=== PATIENT | male | born 1980 | race Caucasian/White ===

== ENCOUNTER 2021-05-24 15:06 | Inpatient (IN) | payer MEDICARE, MEDICAID ==
[~2021-05-24] VITALS: Ht 182.9 cm; Wt 121.1 kg
[2021-05-24] MEDS ORDERED: inSUlin ASPART (NovoLOG) 1 UNIT/0.01 ML (CHARGE PER UNIT) SC PRN (15:30)
[2021-05-24] MEDS ORDERED: DOCUSATE SODIUM 100 MG (COLACE) CAP PO PRN (15:30)
[2021-05-24] MEDS ORDERED: diphenhydrAMINE 25 MG TAB (BENADRYL) PO PRN (15:30)
[2021-05-24] MEDS ORDERED: CALCIUM CARBONATE 500 MG (TUMS) TAB.CHEW PO PRN (15:30)
[2021-05-24] MEDS ORDERED: ONDANSETRON 4 MG/2 ML (SDV) Z0FRAN IVP PRN (15:30)
[2021-05-24] MEDS ORDERED: guaiFENesin/CODEINE (ROBITUSSIN AC) 10ML UDC PO PRN (15:30)
[2021-05-24] MEDS ORDERED: MELATONIN 3 MG TABLET PO PRN (15:30)
[2021-05-24] MEDS ORDERED: HYDROcodone/APAP 5 MG/325 MG (LORTAB) TAB PO PRN (15:30)
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
--- OUTSIDE RECORDS SUMMARY | 2021-05-24 17:57 | XMS REPORT | Encounter Summary ---
Author Author [facility] Organization [facility] Address Unknown Phone Unavailable Care Team Providers Care Tie Loader Name Role Phone Pawel Bray DO PCP Encounter Details Care Team Description Date Type Department Maxi Zarate MD [address] [place] [address] 04/19/2021 Documentation Oncology: Cancer Ce [facility] [place] [address] [facility] [place] [address] Social History Date Tobacco Use Types Packs/Day Years Used Quit: 01/09/2021 Former Smoker Cigarettes 0.5 10 Smokeless Tobacco: Never Used Comments Alcohol Use Standard Drinks/Week No 0 (1 standard drink = 0.6 o z pure alcohol) Sex Assigned at Date Recorded Not on file Date Recorded COVID-19 Exposure Response 04/13/2021 11:53 AM CDT In the last month, have you been in contact with No / Unsure someone who was confirmed or suspected to have Coronavirus / COVID-19? documented as of this encounter Progress Notes * Renee Matta, RN - 04/19/2021 5:55 PM SENIOR INSTRUCTOR Orders for monthly CBC and Iron panel faxed to care facility at [phone]. OR INSTRUCTOR documented in this encounter Plan of Treatment Not on filedocumented as of this encounter Visit Diagnoses Not on filedocumented in this encounter Additional Health Concerns Onset Date Resolved Time Infection Last Indicated 09/13/2009 MRSA 09/13/2009 Noted Time Assessment 04/13/2021 12:06 PM CDT A fall risk assessment has been complet ed for the patient documented as of this encounter Care Teams Start Date End Date Tie Loader Relationship Specialty 03/14/21 Pawel Bray DO PCP - General Geriatric [address] [place] [address] Medicine documented as of this encounter
--- OUTSIDE RECORDS SUMMARY | 2021-05-24 17:57 | XMS REPORT | Encounter Summary ---
Author Author [facility] Organization [facility] Address Unknown Phone Unavailable Care Team Providers Care Superintendent Building Name Role Phone Pawel Bray DO PCP Reason for Visit * Reason Onset Date Comments Lab Results W/medication 04/20/2021 Changes Encounter Details Care Team Description Date Type Department Maxi Zarate MD [address] [facility] [place] [address] Lab Results W/medication Changes 04/20/2021 Telephone Oncology: Cancer Ce [facility] [place] [address] [facility] [place] [address] Social History Date Tobacco Use Types Packs/Day [...] / COVID-19? documented as of this encounter Miscellaneous Notes * Telephone Encounter - Miranda Duran RN - 04/20/2021 8:59 AM BIN OPERATOR [place]kah nurse at care facility contacted and gave Dr Zarate's order to start Vit D 1000 u po daily. OPERATOR * Telephone Encounter - Miranda Duran RN - 04/20/2021 8:58 AM BIN OPERATOR ----- Message from Maxi Zarate MD sent at 04/18/2021 7:24 PM BIN OPERATOR ----- Have him take OTC vit D 1000 IU daily. OPERATOR documented in this encounter Plan of Treatment Not on filedocumented as of this encounter Visit Diagnoses Not on filedocumented in this encounter Historical Medications * This list may reflect changes made after this encounter. Start Date End Date Medication Sig Dispensed Refills ergocalciferol (vitamin Take 1,000 0 D2) (VITAMIN D PO) Units/day by mouth daily. added in this encounter Additional Health Concerns Onset Date Resolved Time Infection Last Indicated 09/13/2009 MRSA 09/13/2009 Noted Time Assessment 04/13/2021 12:06 PM CDT A fall risk assessment has been complet ed for the patient documented as of this encounter Care Teams Start Date End Date Superintendent Building Relationship Specialty 03/14/21 Pawel Bray DO PCP - General Geriatric [address] [place] [address] Medicine documented as of this encounter
--- OUTSIDE RECORDS SUMMARY | 2021-05-24 17:57 | XMS REPORT | Clinical Summary ---
Author Author [facility] Organization [facility] Address Unknown Phone Unavailable Care Team Providers Care Skin Specialist Name Role Phone Pawel Bray PCP Source Comments Some departments are not documenting in the electronic medical record. If you d o not see the information that you expected, contact Release of Information in [facility] [employer] department at [phone] for further assistan ce in locating additional records.[facility] Allergies Comments Active Allergy Reactions Severity Noted Date Cefazolin ANAPHYLAXIS 05/15/2007 Clindamycin ANAPHYLAXIS 02/03/2010 Ketorolac RASH Medium 03/14/2019 Latex RASH, UNKNOWN Medium 07/11/2011 Methadone ANAPHYLAXIS 02/03/2010 Oxycodone-Acetaminophen ITCHING Low 2011 Penicillins RASH 05/15/2007 Vancomycin ANAPHYLAXIS 05/15/2007 Sertraline MENTAL STATUS 05/15/2007 CHANGES Medications End Date Status Medication Sig Dispensed Refills Start Date Active MULTIVITS,TH W-FE,OTHER Take by 0 MIN (THEREMS-M PO) mouth. 1 tab daily Active aspirin 325 mg tablet Take 325 mg 0 by mouth. daily Active DULOXETINE HCL (CYMBALTA Take 60 mg by 0 PO) mouth Daily. Active oxybutynin XL (DITROPAN Take 5 mg by 0 XL) 5 mg tablet mouth Twice Daily. Active baclofen (LIORESAL) 20 mg Take 20 mg by 0 tablet mouth Three Times Daily. Active senna (SENNA) 8.6 mg 2 Tabs Twice 60 Tab 2 tablet Daily. 0 Active OXYCODONE Take 1-2 Tabs 0 HCL/ACETAMINOPHEN by mouth (PERCOCET PO) Every 4 Hours as needed. Take every 4 hours as needed for pain Active ALBUTEROL IN Inhale 2 0 Puffs by mouth As Needed. Active hydromorphone (DILAUDID) Take 1 Tab by 120 Tab 0 4 mg PO tablet mouth Every 3 0 Hours as needed for Pain. Active acetic acid 0.25 % 0 irrigation solution 1 Active ELIQUIS 5 mg tablet 0 1 Active cloZAPine (CLOZARIL) 100 0 mg tablet 1 Active cloZAPine (CLOZARIL) 25 0 mg tablet 1 Active SANTYL 250 unit/gram 0 topical ointment 1 Active furosemide (LASIX) 40 mg 0 tablet 1 Active gabapentin (NEURONTIN) 0 300 mg capsule 1 Active hydrOXYzine HCL (ATARAX) 0 25 mg tablet 1 Active ibuprofen (MOTRIN) 800 mg 0 tablet 1 Active lidocaine 1 % (10mg/mL) 0 soln 1 Active metFORMIN (GLUCOPHAGE) 0 500 mg tablet 1 Active metoprolol tartrate 25 mg 0 tablet 1 Active NYAMYC 100,000 unit/gram 0 topical powder [address] 0 (PROTONIX) 40 mg tablet 1 Active potassium chloride SR 0 (K-DUR) 20 mEq tablet 1 Active HYDROcodone/acetaminophen Take 1 tablet 0 (NORCO) 10/325 mg tablet by mouth every 6 hours as needed for Pain Active risperiDONE (RISPERDAL) 3 Take 3 mg by 0 mg tablet mouth twice daily. Active vortioxetine (TRINTELLIX) Take 5 mg by 0 5 mg tablet mouth daily. Active ZINC PO Take by 0 mouth. Active ergocalciferol (vitamin Take 1,000 0 D2) (VITAMIN D PO) Units/day by mouth daily. Active Problems Problem Noted Date Iron deficiency anemia 04/13/2021 Infected fluid collection without fistula 09/08/2009 Neurogenic bladder 05/23/2007 Encounters Care Team Description Date Type Specialty Maxi Zarate MD 05/20/2021 Hospital Oncology Encounter 05/20/2021 Travel Keily Grossman, [employer]ING [employer]NER 04/22/2021 Hospital Oncology Encounter Keily Grossman, [employer]ING [employer]NER Iron deficiency anemia, unspecified iron deficiency anemia type (Primary Dx); Vitamin D deficiency 04/22/2021 Office Visit Oncology 04/22/2021 Travel Maxi Zarate MD Lab Results W/medication Changes 04/20/2021 Telephone Oncology Maxi Zarate MD 04/19/2021 Documentation Oncology Maxi Zarate MD 04/13/2021 Hospital Lab Encounter Maxi Zarate MD Iron deficiency anemia, unspecified iron deficiency anemia type (Primary Dx); Vitamin D deficiency, unspecified ; Fatigue, unspecified type; Chronic fatigue, unspecified 04/13/2021 Office Visit Oncology 04/13/2021 Travel from Last 3 Months Medical History Medical History Date Comments Unspecified conditions influencing health status Hepatitis C GERD (gastroesophageal reflux disease) Asthma Neurogenic bladder Social History Date Tobacco Use Types Packs/Day Years Used Quit: 01/09/2021 Former Smoker Cigarettes 0.5 10 Smokeless Tobacco: Never Used Comments Alcohol Use Standard Drinks/Week No 0 (1 standard drink = 0.6 o z pure alcohol) Sex Assigned at Date Recorded Not on file Date Recorded COVID-19 Exposure Response 05/20/2021 10:32 AM POLE MAKER In the last month, have you been in contact with No / Unsure someone who was confirmed or suspected to have Coronavirus / COVID-19? Last Filed Vital Signs Reading Time Taken Comments Vital Sign 119/71 05/20/2021 12:44 PM POLE MAKER Blood Pressure 135 05/20/2021 12:44 PM POLE MAKER Pulse 36.8 C (98.2 F) 05/20/2021 10:39 AM POLE MAKER Temperature 18 05/20/2021 10:39 AM POLE MAKER Respiratory Rate 98% 05/20/2021 10:54 AM POLE MAKER Oxygen Saturation - - Inhaled Oxygen Concentration 116.1 kg (256 lb) 04/22/2021 11:23 AM POLE MAKER per pt Weight 182.9 cm (6') 04/22/2021 11:23 AM POLE MAKER Height 34.72 04/22/2021 11:23 AM POLE MAKER Body Mass Index Plan of Treatment Health Maintenance Due Date Last Done Comments MEDICARE ANNUAL WELLNESS 1981 VISIT DTAP/TDAP VACCINES (1 - 1999 Tdap) PHYSICAL (COMPREHENSIVE) 1999 EXAM INFLUENZA VACCINE 01/09/2021 HEPATITIS C SCREENING Completed 09/04/2009 HIV SCREENING Completed 09/04/2009 Procedures Comments Procedure Name Priority Date/Time Associated Diag nosis HC 25-OH VITAMIN D Routine 04/13/2021 Iron defici ency anemia, 1:01 PM CDT unspecified iron deficiency anemia type Vitamin D deficiency, unspecified HC TSH SCREEN Routine 04/13/2021 Iron deficiency anemia, 1:01 PM CDT unspecified iron deficiency anemia type Chronic fatigue, unspecified HC FOLATE, SERUM Routine 04/13/2021 Iron deficien cy anemia, 1:01 PM CDT unspecified iron deficiency anemia type HC VITAMIN B12 Routine 04/13/2021 Iron deficiency anemia, 1:01 PM CDT unspecified iron deficiency anemia type HC IRON BINDING CAPACITY Routine 04/13/2021 Iron deficiency anemia, + %SAT 1:01 PM CDT unspecified iron deficiency anemia type HC COMPREHENSIVE Routine 04/13/2021 Iron deficien cy anemia, METABOLIC PANEL 1:01 PM CDT unspecified iron deficiency anemia type HC CBC W/ AUTOMATED DIFF Routine 04/13/2021 Iron deficiency anemia, 1:01 PM CDT unspecified iron deficiency anemia type from Last 3 Months Results * (ABNORMAL) IRON + BINDING CAPACITY + %SAT+ FERRITIN (04/13/2021 1:01 PM CDT) Iron 13 (L) 50 - 185 MCG/DL [facility] Iron 434 (H) 270 - 380 MCG/DL [facility] Binding-TIBC % Saturation 3 (L) 28 - 42 % [facility] Ferritin 14 (L) 30 - 300 NG/ML [facility] Specimen Blood Performing Organization Address City/State/ZIP Code P daly Number [facility] [address] [place] [address] * TSH WITH FREE T4 REFLEX (04/13/2021 1:01 PM CDT) TSH 1.15 0.35 - 5.00 MCU/ML [facility] Specimen Blood Performing Organization Address City/State/ZIP Code P d[place] Number [facility] [address] [place] [address] * (ABNORMAL) 25-OH VITAMIN D (D2 + D3) (04/13/2021 1:01 PM CDT) [facility] Vitamin 20.3 (L) 30 - 80 NG/ML [facility] LAB D(25-OH)Total Specimen Blood Performing Organization Address City/State/ZIP Code P d[place] Number [facility] LAB [address] [place] [address] * (ABNORMAL) CBC AND DIFF (04/13/2021 1:01 PM CDT) [facility] White Blood 8.0 4.5 - 11.0 K/UL [facility] [place] [place] RBC 3.53 (L) 4.4 - 5.5 M/UL [facility] [place] Hemoglobin 7.4 (L) 13.5 - 16.5 GM/DL [facility] [place] Hematocrit 25.0 (L) 40 - 50 % [facility] [place] MCV 70.9 (L) 80 - [address] [facility] [place] MCH 20.9 (L) 26 - [address] [facility] [place] MCHC 29.4 (L) 32.0 - 36.0 G/DL [facility] [place] [place] RDW 19.1 (H) 11 - 15 % [facility] [place] Platelet Count 335 150 - 400 K/UL [facility] [place] MPV 7.2 7 - [address] [facility] [place] Neutrophils 70 41 - 77 % [facility] Lymphocytes 17 (L) 24 - 44 % [facility] [place] Monocytes 6 4 - 12 % [facility] [place] Eosinophils 5 0 - 5 % [facility] [place] Basophils 2 0 - 2 % [facility] [place] Absolute 5.60 1.8 - 7.0 K/UL [facility] [place] Count Absolute Lymph 1.30 1.0 - 4.8 K/UL [facility] [place] [place] Absolute 0.50 0 - 0.80 K/UL [facility] Monocyte [facility] [place] Absolute 0.40 0 - 0.45 K/UL [facility] [place] Count Absolute 0.10 0 - 0.20 K/UL [facility] Basophil [facility] [place] Specimen Blood Performing Organization Address City/State/ZIP Code P [place] [address] [facility] [address] [facility] [place] [address] * FOLATE, SERUM (04/13/2021 1:01 PM CDT) Pathologist [facility] Serum Folate 21.8 >3.9 NG/ML [facility] Specimen Blood Performing Organization Address City/State/ZIP Code [place] Number [facility] [address] [place] [address] * VITAMIN B12 (04/13/2021 1:01 PM CDT) Pathologist [facility] Vitamin B12 711 180 - 914 PG/ML [facility] Specimen Blood Performing Organization Address City/[facility]/ZIP Code P d[place] Number [facility] [address] [place] [address] * (ABNORMAL) COMPREHENSIVE METABOLIC PANEL (04/13/2021 1:01 PM CDT) Pathologist [facility] Sodium 141 137 - 147 MMOL/L [facility] Potassium 4.2 3.5 - 5.1 MMOL/L [facility] Chloride 99 98 - 110 MMOL/L [facility] Glucose 94 70 - 100 MG/DL [facility] Blood Urea 12 7 - 25 MG/DL [facility] Nitrogen Creatinine 0.44 0.4 - 1.24 MG/DL [facility] Calcium 8.9 8.5 - 10.6 MG/DL [facility] Total Protein 7.6 6.0 - 8.0 G/DL [facility] Total Bilirubin 0.3 0.3 - 1.2 MG/DL [facility] Albumin 3.8 3.5 - 5.0 G/DL [facility] Alk Phosphatase 68 25 - 110 U/L [facility] AST (SGOT) 17 7 - 40 U/L [facility] CO2 29 21 - 30 MMOL/L [facility] ALT (SGPT) 13 7 - 56 U/L [facility] Anion Gap 13 (H) 3 - 12 [facility] eGFR Non >60 >60 mL/min [facility] Comment: [place] The eGFR is not validated f or use in drug dosing adjustments. Continue to use estimated creatinine clearance per dosing reference text. Please contact the Clinical Pharmacist for questions. eGFR >60 >60 mL/min [facility] [place] Comment: The eGFR is not validated for use in drug dosing adjustments. Continue to use estimated creatinine clearance per dosing reference text. Please contact the Clinical Pharmacist for questions. Specimen Blood Performing Organization Address City/State/ZIP Code P d[place] Number [facility] [address] [place] [address] from Last 3 Months Additional Health Concerns Onset Date Last Indicated Infection 09/13/2009 09/13/2009 MRSA Insurance Type Payer Benefit Subscriber ID Effective Phone Address Plan / Dates Group Medicare MEDICARE MEDICARE [id number] 2001-P [phone] [address] [place] [address] [place] [id number] 2021- [phone] [address] MEDICA[address] Present [address] [place] [address] [facility]/HO [id number] 12/05/2020- [address] [facility] /N[place]SING [place] [address] Advance Directives Patient Organic Chemist Explanation Type Date Recorded Advance Directives and Living Will Advance Directive/DPOA Care Teams Start Date End Date Skin Specialist Relationship Specialty 03/14/21 Pawel Bray DO PCP - General Geriatric [address] Medicine[address] [place] [address] Medicine
--- OUTSIDE RECORDS SUMMARY | 2021-05-24 17:57 | XMS REPORT | Encounter Summary ---
Author Author [facility] Organization [facility] Address Unknown Phone Unavailable Care Team Providers Care Multimedia Services Manager Name Role Phone Pawel Bray PCP Encounter Details Care Team Description Date Type Department Maxi Zarate MD [address] [place] [place] [address] 04/13/2021 Hospital Laboratory: [facility] [address] [place] [place] [place] [address] Social History Date Tobacco Use Types Packs/Day [...] / COVID-19? documented as of this encounter Medications at Time of Discharge Start Date End Date Medication Sig Dispensed Refills 04/03/2021 acetic acid 0.25 % 0 irrigation solution ALBUTEROL IN Inhale 2 0 Puffs by mouth As Needed. aspirin 325 mg tablet Take 325 mg 0 by mouth. daily baclofen (LIORESAL) 20 mg Take 20 mg by 0 tablet mouth Three Times Daily. 04/06/2021 cloZAPine (CLOZARIL) 100 0 mg tablet 04/06/2021 cloZAPine (CLOZARIL) 25 0 mg tablet DULOXETINE HCL (CYMBALTA Take 60 mg by 0 PO) mouth Daily. 03/30/2021 ELIQUIS 5 mg tablet 0 03/30/2021 furosemide (LASIX) 40 mg 0 tablet 03/16/2021 gabapentin (NEURONTIN) 0 300 mg capsule HYDROcodone/acetaminophen Take 1 tablet 0 (NORCO) 10/325 mg tablet by mouth every 6 hours as needed for Pain 02/04/2010 hydromorphone (DILAUDID) Take 1 Tab by 120 Tab 0 4 mg PO tablet mouth Every 3 Hours as needed for Pain. 04/07/2021 hydrOXYzine HCL (ATARAX) 0 25 mg tablet 03/16/2021 ibuprofen (MOTRIN) 800 mg 0 tablet 03/18/2021 lidocaine 1 % (10mg/mL) 0 soln 03/16/2021 metFORMIN (GLUCOPHAGE) 0 500 mg tablet 03/16/2021 metoprolol tartrate 25 mg 0 tablet MULTIVITS,-,OTHER Take by 0 MIN (THEREMS-M PO) mouth. 1 tab daily 03/20/2021 NYAMYC 100,000 unit/gram 0 topical powder oxybutynin XL (DITROPAN Take 5 mg by 0 XL) 5 mg tablet mouth Twice Daily. OXYCODONE Take 1-2 Tabs 0 HCL/ACETAMINOPHEN by mouth (PERCOCET PO) Every 4 Hours as needed. Take every 4 hours as needed for pain 03/16/[address] 0 (PROTONIX) 40 mg tablet 03/16/2021 potassium chloride SR 0 (K-DUR) 20 mEq tablet risperiDONE (RISPERDAL) 3 Take 3 mg by 0 mg tablet mouth twice daily. 02/13/2021 SANTYL 250 unit/gram 0 topical ointment 09/10/2009 senna (SENNA) 8.6 mg 2 Tabs Twice 60 Tab 2 tablet Daily. vortioxetine (TRINTELLIX) Take 5 mg by 0 5 mg tablet mouth daily. ZINC PO Take by 0 mouth. documented as of this encounter Discharge Disposition Code Departure Means Destination Disposition Home Home or Self Care documented in this encounter Progress Notes * Maxi Zarate MD - 04/13/2021 12:45 PM CDT Have him take OTC vit D 1000 IU daily. BENDER documented in this encounter Plan of Treatment Not on filedocumented as of this encounter Procedures Comments Procedure Name Priority Date/Time Associated Diag nosis HC IRON BINDING CAPACITY Routine 04/13/2021 Iron deficiency anemia, + %SAT 1:01 PM CDT unspecified iron deficiency anemia type HC TSH SCREEN Routine 04/13/2021 Iron deficiency anemia, 1:01 PM CDT unspecified iron deficiency anemia type Chronic fatigue, unspecified HC 25-OH VITAMIN D Routine 04/13/2021 Iron defici ency anemia, 1:01 PM CDT unspecified iron deficiency anemia type Vitamin D deficiency, unspecified HC CBC W/ AUTOMATED DIFF Routine 04/13/2021 Iron deficiency anemia, 1:01 PM CDT unspecified iron deficiency anemia type HC FOLATE, SERUM Routine 04/13/2021 Iron deficien cy anemia, 1:01 PM CDT unspecified iron deficiency anemia type HC VITAMIN B12 Routine 04/13/2021 Iron deficiency anemia, 1:01 PM CDT unspecified iron deficiency anemia type HC COMPREHENSIVE Routine 04/13/2021 Iron deficien cy anemia, METABOLIC PANEL 1:01 PM CDT unspecified iron deficiency anemia type documented in this encounter Results * (ABNORMAL) 25-OH VITAMIN D (D2 + D3) (04/13/2021 1:01 PM CDT) Vitamin 20.3 (L) 30 - 80 NG/ML [facility] D(25-OH)Total Specimen Blood Performing Organization Address City/[facility]/ZIP Code P d[place] Number [facility] [address] [place] [address] * TSH WITH FREE T4 REFLEX (04/13/2021 1:01 PM CDT) TSH 1.15 0.35 - 5.00 MCU/ML [facility] Specimen Blood Performing Organization Address City/[facility]/ZIP Code P d[place] Number [facility] [address] [place] [address] * FOLATE, SERUM (04/13/2021 1:01 PM CDT) Serum Folate 21.8 >3.9 NG/ML [facility] Specimen Blood Performing Organization Address City/State/ZIP Code [place] Number [facility] [address] [place] [address] * VITAMIN B12 (04/13/2021 1:01 PM CDT) Pathologist [facility] Vitamin B12 711 180 - 914 PG/ML [facility] Specimen Blood Performing Organization Address City/State/ZIP Code P [place] Number [facility] [address] [place] [address] * (ABNORMAL) IRON + BINDING CAPACITY + %SAT+ FERRITIN (04/13/2021 1:01 PM CDT) Pathologist [facility] Iron 13 (L) 50 - 185 MCG/DL [facility] Iron 434 (H) 270 - 380 MCG/DL [facility] Binding-TIBC % Saturation 3 (L) 28 - 42 % [facility] Ferritin 14 (L) 30 - 300 NG/ML [facility] Specimen Blood Performing Organization Address City/[facility]/ZIP Code [place] Number [facility] [address] [place] [address] * (ABNORMAL) COMPREHENSIVE METABOLIC PANEL (04/13/2021 1:01 PM CDT) Pathologist [facility] Sodium 141 137 - 147 MMOL/L [facility] [...] MAIN LAB eGFR Non >60 >60 mL/min [facility] LAB Comment: [place] The eGFR is not validated f or use in drug dosing adjustments. Continue to use estimated creatinine clearance per dosing reference text. Please contact the Clinical Pharmacist for questions. eGFR >60 >60 mL/min MAIN LAB [place] Comment: The eGFR is not validated for use in drug dosing adjustments. Continue to use estimated creatinine clearance per dosing reference text. Please contact the Clinical Pharmacist for questions. Specimen Blood Performing Organization Address City/State/ZIP Code [place] Number [facility] [address] [place] [address] * (ABNORMAL) CBC AND DIFF (04/13/2021 1:01 PM CDT) White Blood 8.0 4.5 - 11.0 K/UL [facility] [place] RBC 3.53 (L) 4.4 - 5.5 M/UL [facility] [place] Hemoglobin 7.4 (L) 13.5 - 16.5 GM/DL [facility] [place] Hematocrit 25.0 (L) 40 - 50 % [facility] [place] MCV 70.9 (L) 80 - 100 FL [facility] [place] MCH 20.9 (L) 26 - 34 PG [facility] MCHC 29.4 (L) 32.0 - 36.0 G/DL [facility] [place] RDW 19.1 (H) 11 - 15 % [facility] [place] Platelet Count 335 150 - 400 K/UL [facility] [place] MPV 7.2 7 - 11 FL [facility] [place] Neutrophils 70 41 - 77 % [facility] Lymphocytes 17 (L) 24 - 44 % [facility] Monocytes 6 4 - 12 % [facility] [place] Eosinophils 5 0 - 5 % [facility] Basophils 2 0 - 2 % [facility] [place] Absolute 5.60 1.8 - 7.0 K/UL [facility] Neutrophil [place] Count Absolute Lymph 1.30 1.0 - 4.8 K/UL [facility] [place] Absolute 0.50 0 - 0.80 K/UL [facility] Monocyte Count [place] Absolute 0.40 0 - 0.45 K/UL [facility] Eosinophil [place] Count Absolute 0.10 0 - 0.20 K/UL [facility] Basophil Count [place] Specimen Blood Performing Organization Address City/State/ZIP Code P daly Number [facility] [place] [address] [facility] [place] [address] documented in this encounter Visit Diagnoses Diagnosis Iron deficiency anemia, unspecified iro n deficiency anemia type Chronic fatigue, unspecified Vitamin D deficiency, unspecified documented in this encounter Additional Health Concerns Onset Date Resolved Time Infection Last Indicated 09/13/2009 MRSA 09/13/2009 Noted Time Assessment 04/13/2021 12:06 PM CDT A fall risk assessment has been complet ed for the patient documented as of this encounter Care Teams Start Date End Date Multimedia Services Manager Relationship Specialty 03/14/21 Pawel Bray DO PCP - General Geriatric [address] [place] [address] Medicine documented as of this encounter
--- OUTSIDE RECORDS SUMMARY | 2021-05-24 17:57 | XMS REPORT | Encounter Summary ---
Author Author [facility] Organization [facility] Address Unknown Phone Unavailable Care Team Providers Care Assistant Professor Of Philosophy Name Role Phone Pawel Bray DO PCP Encounter Details Care Team Description Date Type Department 04/22/2021 Travel Social History Date Tobacco Use Types Packs/Day Years Used Quit: 01/09/2021 Former Smoker Cigarettes 0.5 10 Smokeless Tobacco: Never Used Comments Alcohol Use Standard Drinks/Week No 0 (1 standard drink = 0.6 o z pure alcohol) Sex Assigned at Date Recorded Not on file Date Recorded COVID-19 Exposure Response 04/22/2021 10:10 AM COMPUTER ANALYST SUPERVISOR In the last month, have you been in contact with No / Unsure someone who was confirmed or suspected to have Coronavirus / COVID-19? documented as of this encounter Plan of Treatment Not on filedocumented as of this encounter Visit Diagnoses Not on filedocumented in this encounter Additional Health Concerns Onset Date Resolved Time Infection Last Indicated 09/13/2009 MRSA 09/13/2009 Noted Time Assessment 04/13/2021 12:06 PM CDT A fall risk assessment has been complet ed for the patient documented as of this encounter Care Teams Start Date End Date Assistant Professor Of Philosophy Relationship Specialty 03/14/21 Pawel Bray DO PCP - General Geriatric [address] [place] [address] Medicine documented as of this encounter
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
--- OUTSIDE RECORDS SUMMARY | 2021-05-24 17:57 | XMS REPORT | Encounter Summary ---
Author Author [facility] Address Unknown Phone Unavailable Care Team Providers Care Embedded Hardware Engineer Name Role Phone Pwael Bray PCP Reason for Visit * Treatment (Routine) - Authorized Diagnoses / Procedures Referred By Contact Referred To Conta ct Specialty Diagnoses Iron deficiency anemia, unspecified iron deficiency anemia type Procedures Iron Dextran (INFED) Maxi Zarate MD [address] [place] [address] [facility] Cln Trt [address] [place] [address] Referral ID Status Reason Start Date Expiration Visits Vi sits Date Requested Authorized [id number] Authorized 04/13/2021 07/26/2021 99 99 Encounter Details Care Team Description Date Type Department Maxi Zarate MD [address] [facility] [place] [address] 05/20/2021 Hospital Oncology: Cancer Ce nter, Encounter [facility] [place] [address] [facility] [place] [address] Social History Date Tobacco Use Types Packs/Day Years Used Quit: 01/09/2021 Former Smoker Cigarettes 0.5 10 Smokeless Tobacco: Never Used Comments Alcohol Use Standard Drinks/Week No 0 (1 standard drink = 0.6 o z pure alcohol) Sex Assigned at Date Recorded Not on file Date Recorded COVID-19 Exposure Response 05/20/2021 10:32 AM MARINE TOWER OPERATOR In the last month, have you been in contact with No / Unsure someone who was confirmed or suspected to have Coronavirus / COVID-19? documented as of this encounter Last Filed Vital Signs Reading Time Taken Comments Vital Sign 119/71 05/20/2021 12:44 PM MARINE TOWER OPERATOR Blood Pressure 135 05/20/2021 12:44 PM MARINE TOWER OPERATOR Pulse 36.8 C (98.2 F) 05/20/2021 10:39 AM MARINE TOWER OPERATOR Temperature 18 05/20/2021 10:39 AM MARINE TOWER OPERATOR Respiratory Rate 98% 05/20/2021 10:54 AM MARINE TOWER OPERATOR Oxygen Saturation - - Inhaled Oxygen Concentration - - Weight - - Height - - Body Mass Index documented in this encounter Progress Notes * Maria Teresa Carson RN - 05/20/2021 12:54 PM MARINE TOWER OPERATOR Pt arrived per motorized wheelchair. O2 sat is low, but pt states he forgot to bring his oxygen. Pt placed on O2 at 4L/ NC. O2 sat checked again after about 15 minutes and sat was increased to 98% and pulse decreased to 86. IV started i n right upper forearm. Pt has decubitus ulcer which I did not assess today. Also has a colostomy and s uprapubic catheter which he states are doing fine. Tolerated Iron infusion without adverse effects. IV flushed with 20 ml NS and d c'd. Dismissed per wheelchair in stable condition. NE TOWER OPERATOR documented in this encounter Miscellaneous Notes * Patient Instructions - Maria Teresa Carson RN - 05/20/2021 10:45 AM MARINE TOWER OPERATOR [facility] [place] Discharge Instructions Important Phone Numbers: Cancer Center Main Number (answered 24 hours a day) [phone] Dietitian Maria Teresa Welsh (Mondays only) [phone] Product Support Consultant-Daija Holt [phone] Cancer [facility] (for nutritional supplement) [phone] Treatment Oral And Maxillofacial Pathologist - Ani Sparks [phone] Port Instructions: Ports must be flushed every 4-8 weeks when not in use. Check with your MD/RN or operations scheduler. For up to date information on the COVID-19 virus, visit the CDC website. https:/ /www.cdc.gov/coronavirus General supportive care during cold and flu season and infection prevention reminders: o Wash hands often with soap and water for at least 20 seconds o Cover your mouth and nose o Social distancing: try to maintain 6 feet between you and other people o Stay home if sick and symptoms mild or manageable? If you must be around people wear a mask If you are having symptoms of a lower respiratory infection (cough, shortnes s of breath) and/or fever AND either traveled in last 30 days (internationally o r to region of exposure) OR known exposure to patient with COVID19: o Call your primary care provider for questions or health needs. Tell your doctor about your recent travel and your symptoms o In a medical emergency, call 911 or go to the nearest emergency room. NE TOWER OPERATOR documented in this encounter Plan of Treatment Not on filedocumented as of this encounter Visit Diagnoses Diagnosis Iron deficiency anemia, unspecified iro n deficiency anemia type - Primary * Addendum Note - Ashely Byrd - 05/20/2021 10:45 AM MARINE TOWER OPERATOR Encounter addended by: Ashely Byrd on: 05/24/2021 10:23 AM Actions taken: Charge Capture section accepted NE TOWER OPERATOR documented in this encounter Administered Medications Action Date Dose Rate Site Medication Order MAR Action 05/20/2021 11:41 AM MARINE TOWER OPERATOR 1,000 mg 270 mL/hr iron dextran (INFED) 1,000 mg in sodium Given - New chloride 0.9% (NS) 270 mL IVPB Bag 1,000 mg, 270 mL, at 270 mL/hr, Administer over 1 Hours, Intravenous, ONCE, 1 dose, On Sun05/20/21 at 1130 05/20/2021 11:00 AM MARINE TOWER OPERATOR 125 mg methylPREDNISolone (SOLU-MEDROL PF) Given injection 125 mg 125 mg, Intravenous, 2 mL, Administer over 3-5 Minutes, ONCE, 1 dose, On Sun05/20/21 at 1100, Give 30 minutes prior to Iron Dextran. documented in this encounter Orders First Ordered Date Nursing Count Last Ordered Date [facility] PATIENT CARE 1 1 07/21/2020 PROTOCOLS First Ordered Date Onc TX Plan Communication Count Last Ordered Date ONCBCN MEDS COMMUNICATION #1 1 1 ONCBCN MEDS COMMUNICATION #2 1 1 documented in this encounter Additional Health Concerns Onset Date Resolved Time Infection Last Indicated 09/13/2009 MRSA 09/13/2009 Noted Time Assessment 04/13/2021 12:06 PM CDT A fall risk assessment has been complet ed for the patient documented as of this encounter Care Teams Start Date End Date Embedded Hardware Engineer Relationship Specialty 03/14/21 Pawel Bray DO PCP - General Geriatric [address] [place] [address] Medicine documented as of this encounter
--- OUTSIDE RECORDS SUMMARY | 2021-05-24 17:57 | XMS REPORT | Encounter Summary ---
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
--- OUTSIDE RECORDS SUMMARY | 2021-05-24 17:57 | XMS REPORT | Encounter Summary ---
Author Author [facility] Organization [facility] Address Unknown Phone Unavailable Care Team Providers Care Retail Representative Name Role Phone Pawel Bray DO PCP Encounter Details Care Team Description Date Type Department 04/13/2021 Travel Social History Date Tobacco Use Types [...] encounter Care Teams Start Date End Date Retail Representative Relationship Specialty 03/14/21 Pawel Bray DO PCP - General Geriatric [address] [place] [address] Medicine documented as of this encounter
--- OUTSIDE RECORDS SUMMARY | 2021-05-24 17:57 | XMS REPORT | Encounter Summary ---
Author Author [facility] Organization [facility] Address Unknown Phone Unavailable Care Team Providers Care Restaurant Hospitality Manager Name Role Phone Pawel Bray PCP Reason for Visit * Reason Comments Treatment * Treatment (Routine) - Authorized Diagnoses / Procedures Referred By Contact Referred To Conta ct Specialty Diagnoses Iron deficiency anemia, unspecified iron deficiency anemia type Procedures Iron Dextran (INFED) Maxi Zarate MD [address] [place] [address] [facility] [address] 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 [place] [address] 04/22/2021 Hospital Oncology: Cancer Ce nter, Encounter [facility] [place] [address] [place] [place] [address] Social History Date Tobacco Use Types Packs/Day Years Used Quit: 01/09/2021 Former Smoker Cigarettes 0.5 10 Smokeless Tobacco: Never Used Comments Alcohol Use Standard Drinks/Week No 0 (1 standard drink = 0.6 o z pure alcohol) Sex Assigned at Date Recorded Not on file Date Recorded COVID-19 Exposure Response 04/22/2021 10:10 AM TEST RACK OPERATOR In the last month, have you [...] Daily. 03/30/2021 ELIQUIS 5 mg tablet 0 ergocalciferol (vitamin Take 1,000 0 D2) (VITAMIN D PO) Units/day by mouth daily. 03/30/2021 furosemide (LASIX) 40 mg 0 tablet [...] documented in this encounter Progress Notes * Aubree Lowery RN - 04/22/2021 12:00 PM TEST RACK OPERATOR 1145-pt here for Infed. It appears his suprapubic catheter is leaking, pt state s he did not flush it this morning & it will be fine until he gets home, placed a chux underneath him in his w/c for the time being. 1150-22 gauge PIV in LFA without difficulty. 1200-solumedrol given slow IVP via free flow NS. 1225-Infed infusing over 1 hour. 1325-infed infused & flushing with NS, pt observed X 30 minutes. 1355-PIV flushed & removed, pt dc' d to home via w/c with a transportation service RACK OPERATOR documented in this encounter Miscellaneous Notes * Patient Instructions - Aubree Lowery RN - 04/22/2021 12:00 PM TEST RACK OPERATOR [facility] [place] Discharge Instructions Important Phone Numbers: Cancer Center Main Number (answered 24 hours a day) [phone] Dietitian Maria Teresa Welsh (Mondays only) [phone] Yarn Texturing Machine Operator-Daija Holt [phone] [facility] (for nutritional supplement) [phone] Treatment Archery Equipment Repairer - Ani Sparks [phone] Port Instructions: Ports must be flushed every 4-8 weeks when not in use. Check with your MD/RN or surgery scheduler. RACK OPERATOR documented in this encounter Plan of Treatment Not on filedocumented as of this encounter Visit Diagnoses Diagnosis Iron deficiency anemia, unspecified iro n deficiency anemia type - Primary * Addendum Note - Ashely Byrd - 04/22/2021 12:00 PM TEST RACK OPERATOR Encounter addended by: Ashely Byrd on: 04/26/2021 11:14 AM Actions taken: Charge Capture section accepted RACK OPERATOR * Addendum Note - Joana Hayes RN - 04/22/2021 12:00 PM TEST RACK OPERATOR Encounter addended by: Joana Hayes RN on: 04/24/2021 8:56 PM Actions taken: Charge Capture section accepted RACK OPERATOR documented in this encounter Administered Medications Action Date Dose Rate Site Medication Order MAR Action 04/22/2021 12:25 PM TEST RACK OPERATOR 1,000 mg 270 mL/hr iron dextran (INFED) 1,000 mg in sodium Given - New chloride 0.9% (NS) 270 mL IVPB Bag 1,000 mg, 270 mL, at 270 mL/hr, Administer over 1 Hours, Intravenous, ONCE, 1 dose, On Sun04/22/21 at 1230 04/22/2021 12:00 PM TEST RACK OPERATOR 125 mg methylPREDNISolone (SOLU-MEDROL PF) Given injection 125 mg 125 mg, Intravenous, 2 mL, Administer over 3-5 Minutes, ONCE, 1 dose, On Sun04/22/21 at 1200, Give 30 minutes prior to Iron Dextran. 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
[2021-05-24] MEDS ORDERED: NOREPINEPHRINE 8 MG/250 ML 250 ML IV ONE (18:15)
[2021-05-24 18:22] LABS: BASOPHILS # (AUTO) 0.1 10^3/uL (0.0-0.1); BASOPHILS % (AUTO) 0 % (0-10); EOSINOPHILS % (AUTO) 0 % (0-10); HEMATOCRIT 23 % (40-54); LYMPHOCYTES % (AUTO) 4 % (12-44); MEAN CORPUSCULAR HEMOGLOBIN 21 pg (25-34); MEAN CORPUSCULAR HGB CONC 28 g/dL (32-36); MEAN CORPUSCULAR VOLUME 75 fL (80-99); MEAN PLATELET VOLUME 9.4 fL (9.0-12.2); MONOCYTES # (AUTO) 1.1 10^3/uL (0.0-1.0); MONOCYTES % (AUTO) 5 % (0-12); NEUTROPHILS # (AUTO) 21.7 10^3/uL (1.8-7.8); NEUTROPHILS % (AUTO) 89 % (42-75); PLATELET COUNT 359 10^3/uL (130-400); WHITE BLOOD COUNT 24.3 10^3/uL (4.3-11.0)
[2021-05-24] MEDS: NOREPINEPHRINE 8 MG/250 ML 250 ML IV SCH (18:23)
[2021-05-24 18:29] LABS: HEMOGLOBIN 6.6 g/dL (13.3-17.7)
[2021-05-24 18:30] LABS: POTASSIUM 3.4 MMOL/L (3.6-5.0)
[2021-05-24] MEDS ORDERED: ACETAMINOPHEN 325 MG TABLET PO PRN (18:30)
[2021-05-24 18:31] LABS: CALCIUM 8.5 MG/DL (8.5-10.1)
[2021-05-24] MEDS: NS IV 1000 ML 1,000 ML IV SCH ×2 (18:34→22:12)
[2021-05-24 18:36] LABS: CREATININE SERUM 0.75 MG/DL (0.60-1.30)
[2021-05-24 18:38] LABS: MAGNESIUM 1.9 MG/DL (1.6-2.4)
[2021-05-24] MEDS ORDERED: KCL 10 MEQ TAB (MICRO K) PO ONE ×2 (18:45→20:12)
[2021-05-24] MEDS ORDERED: NS IV 500 ML 500 ML IV SCH ×2 (18:45)
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
[2021-05-24 19:12] LABS: ATYPICAL LYMPHOCYTES 1 %; BAND NEUTROPHILS 10 %; HYPOCHROMASIA MARKED; LYMPHOCYTES % (MANUAL) 5 %; MONOCYTES % (MANUAL) 3 %; NEUTROPHILS % (MANUAL) 81 %
[2021-05-24 19:13] LABS: MICROCYTOSIS MODERATE; POIKILOCYTOSIS SLIGHT
[2021-05-24] MEDS ORDERED: ENOXAPARIN 40 MG/0.4 ML (LOVENOX) SYR SC SCH (20:00)
[2021-05-24] MEDS: MEROPENEM 1,000 MG in NS (IVPB) 100 ML IV SCH (20:15)
[2021-05-24] MEDS: morphine INJ 10 MG/ML 1ML (SYR OR VIAL) IVP PRN (20:15)
[2021-05-24] MEDS: LINEZOLID IVPB 300 ML IV SCH (20:15)
[2021-05-24] MEDS: SENNA W/DOCUSATE (SENOKOT S) TABLET PO SCH (20:21)
[2021-05-24] MEDS: polyethylene glycoL POWDER 17 GM (MIRALAX) PACK PO SCH (20:21)
[2021-05-24 20:36] LABS: ALBUMIN 2.5 GM/DL (3.2-4.5)
[2021-05-24 20:39] LABS: TOTAL PROTEIN 6.7 GM/DL (6.4-8.2)
[2021-05-24 20:41] LABS: BILIRUBIN,TOTAL 0.7 MG/DL (0.1-1.0)
[2021-05-24 20:45] LABS: BILIRUBIN,DIRECT 0.6 MG/DL (0.0-0.3); BILIRUBIN,INDIRECT 0.1 MG/DL
[2021-05-24 21:08] VITALS: BP 102/51
[2021-05-24 21:10] VITALS: BP 102/51
[2021-05-24 21:25] VITALS: BP 96/47
[2021-05-24 23:05] VITALS: BP 102/56
[2021-05-25] MEDS: morphine INJ 10 MG/ML 1ML (SYR OR VIAL) IVP PRN ×2 (01:39→07:47)
[2021-05-25 01:55] LABS: BASOPHILS # (AUTO) 0.1 10^3/uL (0.0-0.1); BASOPHILS % (AUTO) 0 % (0-10); EOSINOPHILS # (AUTO) 0.1 10^3/uL (0.0-0.3); EOSINOPHILS % (AUTO) 0 % (0-10); HEMATOCRIT 25 % (40-54); HEMOGLOBIN 7.3 g/dL (13.3-17.7); LYMPHOCYTES # (AUTO) 1.1 10^3/uL (1.0-4.0); LYMPHOCYTES % (AUTO) 6 % (12-44); MEAN CORPUSCULAR HEMOGLOBIN 22 pg (25-34); MEAN CORPUSCULAR HGB CONC 29 g/dL (32-36); MEAN CORPUSCULAR VOLUME 76 fL (80-99); MEAN PLATELET VOLUME 9.1 fL (9.0-12.2); MONOCYTES # (AUTO) 1.5 10^3/uL (0.0-1.0); MONOCYTES % (AUTO) 7 % (0-12); NEUTROPHILS # (AUTO) 17.6 10^3/uL (1.8-7.8); NEUTROPHILS % (AUTO) 85 % (42-75); PLATELET COUNT 365 10^3/uL (130-400); WHITE BLOOD COUNT 20.8 10^3/uL (4.3-11.0)
[2021-05-25 02:07] LABS: ALBUMIN 2.5 GM/DL (3.2-4.5); POTASSIUM 3.5 MMOL/L (3.6-5.0)
[2021-05-25 02:08] LABS: CALCIUM 8.7 MG/DL (8.5-10.1)
[2021-05-25 02:10] LABS: TOTAL PROTEIN 6.8 GM/DL (6.4-8.2)
[2021-05-25 02:11] LABS: BILIRUBIN,TOTAL 0.6 MG/DL (0.1-1.0)
[2021-05-25 02:13] LABS: CREATININE SERUM 0.61 MG/DL (0.60-1.30); PHOSPHORUS 4.3 MG/DL (2.3-4.7)
[2021-05-25 02:16] LABS: MAGNESIUM 2.1 MG/DL (1.6-2.4)
[2021-05-25] MEDS: MEROPENEM 1,000 MG in NS (IVPB) 100 ML IV SCH ×3 (04:37→20:03)
[2021-05-25] MEDS: KCL 20 MEQ TAB (K-DUR) PO SCH (04:44)
[2021-05-25] MEDS: POTASSIUM CL 10MEQ/50ML IVPB 50 ML IV SCH ×7 (04:44→16:31)
[2021-05-25] MEDS: MAGNESIUM 1 GM/100 ML IVPB 100 ML IV SCH (04:44)
[2021-05-25] MEDS: ALPRAZolam 0.25 MG (XANAX) TAB PO PRN ×2 (05:21→20:03)
[2021-05-25] MEDS: NS IV 1000 ML 1,000 ML IV SCH ×3 (06:20→14:02)
--- NOTE | 2021-05-25 07:08 | Diagnostic Imaging Report ---
INDICATION: Dyspnea. FINDINGS: Portable chest. There is bilateral basilar atelectasis with [place] in appearance. There are bilateral pleural effusions larger on the left. Could not exclude infiltrate in the left lung base as well. IMPRESSION: 1. Poor inspiratory effort with bilateral atelectasis and pleural effusion. Dictated by: Dictated on workstation # [id number]
[2021-05-25] MEDS: SENNA W/DOCUSATE (SENOKOT S) TABLET PO SCH ×2 (08:15→20:03)
[2021-05-25] MEDS: polyethylene glycoL POWDER 17 GM (MIRALAX) PACK PO SCH ×2 (08:15→20:03)
[2021-05-25] MEDS: LINEZOLID IVPB 300 ML IV SCH ×2 (08:16→20:04)
--- NOTE | 2021-05-25 09:46 | Consultation - Surgery ---
LILLIANA BRANTLEY 05/25/21 0946: History of Present Illness History of Present Illness Patient Consulted On(hailey/time) 05/25/21 09:38 Date Seen by Provider: May 25, 2021 Time Seen by Provider: 07:31 History of Present Illness Viral Padron is a 40y/o M with a PMH of diabetes, CHF, stroke, anxiety, and depression who presents with decubitus ulcers. Pt reports that he has ulcers on his bottom that began about 2 years ago. Pt is paraplegic. He states that over the course of the 2 years he has had occasional pain with the ulcers. Reports that recently the pain has worsened. Reports that the pain waxes and wanes and at its worst it is a 5/10. States that he does have a discharge out of the ulcers. Said the discharge is a "green" purulent discharge. Says that he has been seeing wound care in [place] weekly for the ulcers on his bottom and feet. Had a similar issue with ulcers 5 years ago that resolved after debridement and a skin graft. According to the pt he had no issues with ulcers in that area after that until the current ones started 2 years ago. Allergies and Home Medications Allergies Coded Allergies: Penicillins (Verified Allergy, Unknown, 05/24/21) cefazolin (Verified Allergy, Unknown, 05/24/21) clindamycin (Verified Allergy, Unknown, 05/24/21) latex (Verified Allergy, Unknown, 05/24/21) methadone (Verified Allergy, Unknown, 05/24/21) sertraline (Verified Allergy, Unknown, 05/24/21) vancomycin (Verified Allergy, Unknown, 05/24/21) Patient Home Medication List Acetic Acid (Acetic Acid) 1,000 Ml Irrig.soln, 60 ML IR BID, (Reported) Entered as Reported by: SHAHLA IBARRA on 05/25/21 113 Last Action: Reviewed Albuterol Sulfate (Ventolin Hfa) 18 Gm Hfa.aer.ad, 2 PUFF INH Q6H PRN for SHORTNESS OF BREATH, (Reported) Entered as Reported by: SHAHLA IBARRA on 05/25/211134 Last Action: Reviewed Apixaban (Eliquis) 5 Mg Tablet, 5 MG PO BID, (Reported) Entered as Reported by: SHAHLA IBARRA on 05/25/21 113 Last Action: Reviewed Ascorbic Acid (Vitamin C) 500 Mg Tablet, 500 MG PO BID, (Reported) Entered as Reported by: SHAHLA IBARRA on 05/25/211134 Last Action: Reviewed Baclofen (Baclofen) 5 Mg Tablet, 5 MG PO TID, (Reported) Entered as Reported by: SHAHLA IBARRA on 05/25/211134 Last Action: Reviewed Bisacodyl (Bisacodyl) 5 Mg Tablet.dr, 10 MG PO BID, (Reported) Entered as Reported by: SHAHLA IBARRA on 05/25/211134 Last Action: Reviewed Ceftriaxone Sodium (Ceftriaxone) 2 Gm Vial, 2 GM IM FRI, (Reported) Entered as Reported by: SHAHLA IBARRA on 05/25/211134 Last Action: Reviewed Cholecalciferol (Vitamin D3) (Vitamin D3) 25 Mcg Tablet, 25 MCG PO DAILY, (Reported) Entered as Reported by: SHAHLA IBARRA on 05/25/211134 Last Action: Reviewed Cholecalciferol (Vitamin D3) (Vitamin D3) 1,250 Mcg Capsule, 1,250 MCG PO TUE, (Reported) Entered as Reported by: SHAHLA IBARRA on 05/25/211134 Last Action: Reviewed Clozapine (Clozapine) 100 Mg Tablet, 100 MG PO DAILY, (Reported) Entered as Reported by: SHAHLA IBARRA on 05/25/211134 Last Action: Reviewed Clozapine (Clozapine) 25 Mg Tablet, 25 MG PO HS, (Reported) Entered as Reported by: SHAHLA IBARRA on 05/25/211134 Last Action: Reviewed Cyanocobalamin (Cyanocobalamin Injection) 1,000 Mcg/Ml Inj, 1,000 MCG IM EVERY 21 DAYS, (Reported) Entered as Reported by: SHAHLA IBARRA on 05/25/211134 Last Action: Reviewed Docusate Sodium (Docusate Sodium) 100 Mg Capsule, 100 MG PO BID, (Reported) Entered as Reported by: SHAHLA IBARRA on 05/25/211134 Last Action: Reviewed Duloxetine HCl (Duloxetine HCl) 60 Mg Capsule.dr, 60 MG PO DAILY, (Reported) Entered as Reported by: SHAHLA IBARRA on 05/25/211134 Last Action: Reviewed Duloxetine HCl (Duloxetine HCl) 30 Mg Capsule.dr, 30 MG PO DAILY, (Reported) Entered as Reported by: SHAHLA IBARRA on 05/25/211134 Last Action: Reviewed Ferrous Sulfate (Ferrous Sulfate) 325 Mg Tablet, 650 MG PO DAILY, (Reported) Entered as Reported by: SHAHLA IBARRA on 05/25/211134 Last Action: Reviewed Furosemide (Furosemide) 40 Mg Tablet, 40 MG PO DAILY, (Reported) Entered as Reported by: SHAHLA IBARRA on 05/25/211134 Last Action: Reviewed Gabapentin (Neurontin) 300 Mg Capsule, 300 MG PO TID, (Reported) Entered as Reported by: SHAHLA IBARRA on 05/25/211134 Last Action: Reviewed Hydrocodone/Acetaminophen (Hydrocodone-Acetamin 10-325 mg) 1 Each Tablet, 1 EA PO Q6H PRN for PAIN-MODERATE (5-7), (Reported) Entered as Reported by: SHAHLA IBARRA on 05/25/211134 Last Action: Reviewed Hydroxyzine HCl (Hydroxyzine HCl) 25 Mg Tablet, 50 MG PO Q4H PRN for AGITATION, (Reported) Entered as Reported by: SHAHLA IBARRA on 05/25/211134 Last Action: Reviewed Ibuprofen (Ibuprofen) 800 Mg Tablet, 800 MG PO TID, (Reported) Entered as Reported by: SHAHLA IBARRA on 05/25/211134 Last Action: Reviewed Lactulose (Lactulose) 10 Gm/15 Ml Solution, 30 ML PO TID, (Reported) Entered as Reported by: SHAHLA IBARRA on 05/25/211134 Last Action: Reviewed Magnesium Hydroxide (Milk of Magnesia) 400 Mg/5 Ml Oral.susp, 30 ML PO BID PRN for CONSTIPATION-7TH LINE, (Reported) Entered as Reported by: SHAHLA IBARRA on 05/25/211134 Last Action: Reviewed Menthol/Camphor ([place] Ointment) 4 Gm Oint...g., 1 APPLIC TP Q4H PRN for PAIN/MUSCLE ACHES, (Reported) Entered as Reported by: SHAHLA IBARRA on 05/25/211134 Last Action: Reviewed Metformin HCl (Metformin HCl) 500 Mg Tablet, 500 MG PO DAILY, (Reported) Entered as Reported by: SHAHLA IBARRA on 05/25/211134 Last Action: Reviewed Metoprolol Tartrate (Metoprolol Tartrate) 25 Mg Tablet, 25 MG PO 0600,1600, (Reported) Entered as Reported by: SHAHLA IBARRA on 05/25/211134 Last Action: Reviewed Multivitamin with Minerals (Multivitamins with Minerals) 1 Each Tablet, 1 EACH PO DAILY, (Reported) Entered as Reported by: SHAHLA IBARRA on 05/25/211134 Last Action: Reviewed Nystatin (Nyamyc) 15 Gm Powder, 1 APPLIC TOP BID, (Reported) Entered as Reported by: SHAHLA IBARRA on 05/25/211134 Last Action: Reviewed Ondansetron HCl (Ondansetron HCl) 4 Mg Tablet, 4 MG PO Q6H PRN for NAUSEA/VOMITING-1ST LINE, (Reported) Entered as Reported by: SHAHLA IBARRA on 05/25/211134 Last Action: Reviewed Oxybutynin Chloride (Oxybutynin Chloride ER) 10 Mg Tab.er.24, 10 MG PO DAILY, (Reported) Entered as Reported by: SHAHLA IBARRA on 05/25/211134 Last Action: Reviewed Pantoprazole Sodium (Pantoprazole Sodium) 40 Mg Tablet.dr, 40 MG PO DAILY, ( Reported) Entered as Reported by: SHAHLA IBARRA on 05/25/211134 Last Action: Reviewed Potassium Chloride (Potassium Chloride) 20 Meq Tab.er.prt, 20 MEQ PO DAILY, (Reported) Entered as Reported by: SHAHLA IBARRA on 05/25/211134 Last Action: Reviewed Risperidone (Risperidone) 3 Mg Tablet, 3 MG PO 0600,1600, (Reported) Entered as Reported by: SHAHLA IBARRA on 05/25/211134 Last Action: Reviewed Vortioxetine Hydrobromide (Trintellix) 20 Mg Tablet, 20 MG PO DAILY, (Reported) Entered as Reported by: SHAHLA IBARRA on 05/25/211134 Last Action: Reviewed Zinc (Zinc) 50 Mg Tablet, 50 MG PO MON,WE,FR, (Reported) Entered as Reported by: SHAHLA IBARRA on 05/25/211134 Last Action: Reviewed Past Qawxrmv-Oqraka-Vxswmb Hx Patient Social History Type Used: Smokeless Tobacco Alcohol Use?: No Have you traveled recently?: No Immunizations Up To Date Date of Influenza Vaccine: Mar 11, 2021 Surgeries History of Surgeries: Yes Surgeries: Orthopedic Respiratory History of Respiratory Disorde: No Cardiovascular History of Cardiac Disorders: Yes (CHF) Neurological History of Neurological Disord: Yes Neurological Disorders: Spinal Cord Injury, Stroke Psychosocial History of Psychiatric Problem: Yes Behavioral Health Disorders: Anxiety, Depression Family Medical History Significant Family History: Heart Disease (Mother-[place]), Hypertension (mother) Review of Systems-General Constitutional: chills, fever EENTM: No hearing loss, No blurred vision, No double vision Respiratory: No cough; short of breath Cardiovascular: No chest pain, No palpitations Gastrointestinal: No abdominal pain, No nausea, No vomiting Musculoskeletal: back pain; No muscle pain Psychiatric/Neurological: Anxiety, Depressed; Denies Numbness (in hands); Other (No feeling below umbilicus ) Physical Exam-General Problems Physical Exam Vital Signs Vital Signs - First Documented 05/24/21 05/24/21 17:30 19:36 Temp 36.8 Pulse 82 Resp 17 B/P (MAP) 148/80 Pulse Ox 99 O2 Delivery Nasal Cannula O2 Flow Rate 4.00 Capillary Refill : General Appearance: no apparent distress, obese HEENT: PERRL/EOMI; No photophobia Respiratory: lungs clear, no respiratory distress Cardiovascular: no murmur, tachycardia Gastrointestinal: soft, tenderness (diffuse, worse over lower 2 quadrants) Extremities: non-tender, normal capillary refill Neurologic/Psychiatric: alert, oriented x 3 Skin: warm/dry, other (Pt defered exam on ulcers on lower back until doctor was present. distal feet yellow in color w/ black-purple areas over medial great toe b/l) Data Review Labs Laboratory Tests 05/24/21 18:00: White Blood Count 24.3H, Red Blood Count 3.10L, Hemoglobin 6.6*L, Hematocrit 23L , Mean Corpuscular Volume 75L, Mean Corpuscular Hemoglobin 21L, Mean Corpuscular Hemoglobin Concent 28L, Red Cell Distribution Width 23.0H, Platelet Count 359, Mean Platelet Volume 9.4, Immature Granulocyte % (Auto) 2, Neutrophils (%) (Auto) 89H, Lymphocytes (%) (Auto) 4L, Monocytes (%) (Auto) 5, Eosinophils (%) (Auto) 0, Basophils (%) (Auto) 0, Neutrophils # (Auto) 21.7H, Lymphocytes # (Auto) 1.0, Monocytes # (Auto) 1.1H, Eosinophils # (Auto) 0.0, Basophils # (Auto) 0.1, Immature Granulocyte # (Auto) 0.4H, Neutrophils % (Manual) 81, Lymphocytes % (Manual) 5, Monocytes % (Manual) 3, Band Neutrophils 10, Atypical Lymphocytes 1, Hypochromasia MARKED, Poikilocytosis SLIGHT, Microcytosis MODERATE, Sodium Level 135, Potassium Level 3.4L, Chloride Level 94L, Carbon Dioxide Level 28, Anion Gap 13, Blood Urea Nitrogen 19H, Creatinine 0.75, Estimat Glomerular Filtration Rate 116, BUN/Creatinine Ratio 25, Glucose Level 171H, Lactic Acid Level 1.12, Calcium Level 8.5, Magnesium Level 1.9, Total Bilirubin 0.7, Direct Bilirubin 0.6H, Indirect Bilirubin 0.1, Aspartate Amino Transf (AST/SGOT) 25, Alanine Aminotransferase (ALT/SGPT) 30, Alkaline Phosphatase 193H, Total Protein 6.7, Albumin 2.5L 05/25/21 01:45: White Blood Count 20.8H, Red Blood Count 3.33L, Hemoglobin 7.3L, Hematocrit 25L, Mean Corpuscular Volume 76L, Mean Corpuscular Hemoglobin 22L, Mean Corpuscular Hemoglobin Concent 29L, Red Cell Distribution Width 22.5H, Platelet Count 365, Mean Platelet Volume 9.1, Immature Granulocyte % (Auto) 2, Neutrophils (%) (Auto) 85H, Lymphocytes (%) (Auto) 6L, Monocytes (%) (Auto) 7, Eosinophils (%) (Auto) 0, Basophils (%) (Auto) 0, Neutrophils # (Auto) 17.6H, Lymphocytes # (Auto) 1.1, Monocytes # (Auto) 1.5H, Eosinophils # (Auto) 0.1, Basophils # (Auto) 0.1, Immature Granulocyte # (Auto) 0.4H, Sodium Level 138, Potassium Level 3.5L, Chloride Level 98, Carbon Dioxide Level 28, Anion Gap 12, Blood Urea Nitrogen 15, Creatinine 0.61, Estimat Glomerular Filtration Rate 147, BUN/Creatinine Ratio 25, Glucose Level 147H, Calcium Level 8.7, Magnesium Level 2.1, Total Bilirubin 0.6, Aspartate Amino Transf (AST/SGOT) 25, Alanine Aminotransferase (ALT/SGPT) 30, Alkaline Phosphatase 182H, Total Protein 6.8, Albumin 2.5L, Corrected Calcium 9.9, Phosphorus Level 4.3 05/25/21 05:35: Lactic Acid Level 0.89 Assessment/Plan Assessment/Plan Assessment/Plan Assessment Decubitus ulcers Severe sepsis Paraplegia Diabetes mellitus Depression, anxiety Plan Consider debridement of ulcers after viewing ulcers with Dr. Pugh later today. Continue NPO Continue wound care and dressing changes Continue pain medications as needed Continue antibiotics PEDRO LUIS PUGH DO 05/25/21 1711: History of Present Illness History of Present Illness Time Seen by Provider: 13:25 History of Present Illness Surgery asked to consult regarding sepsis and Decubitus ulcers. Pt was transferred from [place] with sepsis and concern for necrotizing fasciitis. Had a CT done which did not show damien's; he came in last night. When I saw him this afternoon he did not appear to be in any distress and vitals were stable. Stated these have been a [facility] problem. Allergies and Home Medications Allergies Coded Allergies: Penicillins (Verified Allergy, Unknown, 05/24/21) cefazolin (Verified Allergy, Unknown, 05/24/21) clindamycin (Verified Allergy, Unknown, 05/24/21) latex (Verified Allergy, Unknown, 05/24/21) methadone (Verified Allergy, Unknown, 05/24/21) sertraline (Verified Allergy, Unknown, 05/24/21) vancomycin (Verified Allergy, Unknown, 05/24/21) Patient Home Medication List Home Medication List Reviewed: Yes Acetic Acid (Acetic Acid) 1,000 Ml Irrig.soln, 60 ML IR BID, (Reported) Entered as Reported by: SHAHLA IBARRA on 05/25/211134 Last Action: Reviewed Albuterol Sulfate (Ventolin Hfa) 18 Gm Hfa.aer.ad, 2 PUFF INH Q6H PRN for SHORT NESS OF BREATH, (Reported) Entered as Reported by: SHAHLA IBARRA on 05/25/211134 Last Action: Reviewed Apixaban (Eliquis) 5 Mg Tablet, 5 MG PO BID, (Reported) Entered as Reported by: SHAHLA IBARRA on 05/25/211134 Last Action: Reviewed Ascorbic Acid (Vitamin C) 500 Mg Tablet, 500 MG PO BID, (Reported) Entered as Reported by: SHAHLA IBARRA on 05/25/211134 Last Action: Reviewed Baclofen (Baclofen) 5 Mg Tablet, 5 MG PO TID, (Reported) Entered as Reported by: SHAHLA IBARRA on 05/25/211134 Last Action: Reviewed Bisacodyl (Bisacodyl) 5 Mg Tablet.dr, 10 MG PO BID, (Reported) Entered as Reported by: SHAHLA IBARRA on 05/25/211134 Last Action: Reviewed Ceftriaxone Sodium (Ceftriaxone) 2 Gm Vial, 2 GM IM FRI, (Reported) Entered as Reported by: SHAHLA IBARRA on 05/25/211134 Last Action: Reviewed Cholecalciferol (Vitamin D3) (Vitamin D3) 25 Mcg Tablet, 25 MCG PO DAILY, (Reported) Entered as Reported by: SHAHLA IBARRA on 05/25/211134 Last Action: Reviewed Cholecalciferol (Vitamin D3) (Vitamin D3) 1,250 Mcg Capsule, 1,250 MCG PO TUE, (Reported) Entered as Reported by: SHAHLA IBARRA on 05/25/211134 Last Action: Reviewed Clozapine (Clozapine) 100 Mg Tablet, 100 MG PO DAILY, (Reported) Entered as Reported by: SHAHLA IBARRA on 05/25/211134 Last Action: Reviewed Clozapine (Clozapine) 25 Mg Tablet, 25 MG PO HS, (Reported) Entered as Reported by: SHAHLA IBARRA on 05/25/211134 Last Action: Reviewed Cyanocobalamin (Cyanocobalamin Injection) 1,000 Mcg/Ml Inj, 1,000 MCG IM EVERY 21 DAYS, (Reported) Entered as Reported by: SHAHLA IBARRA on 05/25/211134 Last Action: Reviewed Docusate Sodium (Docusate Sodium) 100 Mg Capsule, 100 MG PO BID, (Reported) Entered as Reported by: SHAHLA IBARRA on 05/25/211134 Last Action: Reviewed Duloxetine HCl (Duloxetine HCl) 60 Mg Capsule.dr, 60 MG PO DAILY, (Reported) Entered as Reported by: SHAHLA IBARRA on 05/25/211134 Last Action: Reviewed Duloxetine HCl (Duloxetine HCl) 30 Mg Capsule.dr, 30 MG PO DAILY, (Reported) Entered as Reported by: SHAHLA IBARRA on 05/25/211134 Last Action: Reviewed Ferrous Sulfate (Ferrous Sulfate) 325 Mg Tablet, 650 MG PO DAILY, (Reported) Entered as Reported by: SHAHLA IBARRA on 05/25/211134 Last Action: Reviewed Furosemide (Furosemide) 40 Mg Tablet, 40 MG PO DAILY, (Reported) Entered as Reported by: SHAHLA IBARRA on 05/25/211134 Last Action: Reviewed Gabapentin (Neurontin) 300 Mg Capsule, 300 MG PO TID, (Reported) Entered as Reported by: SHAHLA IBARRA on 05/25/211134 Last Action: Reviewed Hydrocodone/Acetaminophen (Hydrocodone-Acetamin 10-325 mg) 1 Each Tablet, 1 EA PO Q6H PRN for PAIN-MODERATE (5-7), (Reported) Entered as Reported by: SHAHLA IBARRA on 05/25/211134 Last Action: Reviewed Hydroxyzine HCl (Hydroxyzine HCl) 25 Mg Tablet, 50 MG PO Q4H PRN for AGITATION, (Reported) Entered as Reported by: SHAHLA IBARRA on 05/25/211134 Last Action: Reviewed Ibuprofen (Ibuprofen) 800 Mg Tablet, 800 MG PO TID, (Reported) Entered as Reported by: SHAHLA IBARRA on 05/25/211134 Last Action: Reviewed Lactulose (Lactulose) 10 Gm/15 Ml Solution, 30 ML PO TID, (Reported) Entered as Reported by: SHAHLA IBARRA on 05/25/211134 Last Action: Reviewed Magnesium Hydroxide (Milk of Magnesia) 400 Mg/5 Ml Oral.susp, 30 ML PO BID PRN for CONSTIPATION-7TH LINE, (Reported) Entered as Reported by: SHAHLA IBARRA on 05/25/211134 Last Action: Reviewed Menthol/Camphor ([place] Ointment) 4 Gm Oint...g., 1 APPLIC TP Q4H PRN for PAIN/MUSCLE ACHES, (Reported) Entered as Reported by: SHAHLA IBARRA on 05/25/211134 Last Action: Reviewed Metformin HCl (Metformin HCl) 500 Mg Tablet, 500 MG PO DAILY, (Reported) Entered as Reported by: SHAHLA IBARRA on 05/25/211134 Last Action: Reviewed Metoprolol Tartrate (Metoprolol Tartrate) 25 Mg Tablet, 25 MG PO 0600,1600, (Reported) Entered as Reported by: SHAHLA IBARRA on 05/25/211134 Last Action: Reviewed Multivitamin with Minerals (Multivitamins with Minerals) 1 Each Tablet, 1 EACH PO DAILY, (Reported) Entered as Reported by: SHAHLA IBARRA on 05/25/211134 Last Action: Reviewed Nystatin (Nyamyc) 15 Gm Powder, 1 APPLIC TOP BID, (Reported) Entered as Reported by: SHAHLA IBARRA on 05/25/211134 Last Action: Reviewed Ondansetron HCl (Ondansetron HCl) 4 Mg Tablet, 4 MG PO Q6H PRN for NAUSEA/ VOMITING-1ST LINE, (Reported) Entered as Reported by: SHAHLA IBARRA on 05/25/211134 Last Action: Reviewed Oxybutynin Chloride (Oxybutynin Chloride ER) 10 Mg Tab.er.24, 10 MG PO DAILY, (Reported) Entered as Reported by: SHAHLA IBARRA on 05/25/211134 Last Action: Reviewed Pantoprazole Sodium (Pantoprazole Sodium) 40 Mg Tablet.dr, 40 MG PO DAILY, (Reported) Entered as Reported by: SHAHLA IBARRA on 05/25/211134 Last Action: Reviewed Potassium Chloride (Potassium Chloride) 20 Meq Tab.er.prt, 20 MEQ PO DAILY, (Re ported) Entered as Reported by: SHAHLA IBARRA on 05/25/211134 Last Action: Reviewed Risperidone (Risperidone) 3 Mg Tablet, 3 MG PO 0600,1600, (Reported) Entered as Reported by: SHAHLA IBARRA on 05/25/211134 Last Action: Reviewed Vortioxetine Hydrobromide (Trintellix) 20 Mg Tablet, 20 MG PO DAILY, (Reported) Entered as Reported by: SHAHLA IBARRA on 05/25/211134 Last Action: Reviewed Zinc (Zinc) 50 Mg Tablet, 50 MG PO MON,WE,FR, (Reported) Entered as Reported by: SHAHLA IBARRA on 05/25/211134 Last Action: Reviewed Past Sqxbmod-Kadtij-Bdbzdk Hx Patient Social History Smoking Status: Never a Smoker Type Used: Smokeless Tobacco Sexual Abuse: No Surgeries History of Surgeries: Yes Surgeries: Orthopedic Respiratory History of Respiratory Disorde: No Cardiovascular History of Cardiac Disorders: Yes (CHF) Neurological History of Neurological Disord: Yes Neurological Disorders: Spinal Cord Injury, Stroke Genitourinary History of Genitourinary Disor: Yes (has suprapubic catheter) Genitourinary Disorders: UTI-Chronic Gastrointestinal History of Gastrointestinal Di: Yes Gastrointestinal Disorders: Gastroesophageal Reflux Musculoskeletal History of Musculoskeletal Dis: Yes Musculoskeletal Disorders: Arthritis, Contracture Endocrine History of Endocrine Disorders: No HEENT History of HEENT Disorders: No Cancer History of Cancer: No Psychosocial History of Psychiatric Problem: Yes Behavioral Health Disorders: Anxiety, Depression Integumentary History of Skin or Integumenta: Yes (ulcers) Family Medical History Significant Family History: Heart Disease (Mother-[place]), Hypertension (mother) Review of Systems-General Constitutional: chills, fever EENTM: No hearing loss, No blurred vision, No double vision Respiratory: No cough; short of breath Cardiovascular: No chest pain, No palpitations Gastrointestinal: No abdominal pain, No nausea, No vomiting Genitourinary: incontinence, other (suprapubic catheter) Musculoskeletal: back pain; No muscle pain; muscle stiffness, muscle weakness Skin: lesions Psychiatric/Neurological: Anxiety, Depressed; Denies Numbness (in hands); Pre- Existing Deficit, Other (No feeling below umbilicus ) Physical Exam-General Problems Physical Exam General Appearance: no apparent distress, obese Eyes: Bilateral Eye PERRL, Bilateral Eye EOMI HEENT: No scleral icterus (R), No scleral icterus (L), No photophobia Neck: non-tender, supple Respiratory: lungs clear, normal breath sounds, no respiratory distress, no ac cessory muscle use Cardiovascular: no murmur, tachycardia Gastrointestinal: soft, no organomegaly, tenderness (diffuse, worse over lower 2 quadrants) Extremities: no pedal edema, normal capillary refill Neurologic/Psychiatric: alert, oriented x 3 Skin: warm/dry, other (Pt had multiple ulcers on lower back and at ischial tuberosities, with necrotic tissue on left, beginnings of bruising and skin marques k down around scrotum and both inugina creases. distal feet yellow in color w/ black-purple areas over medial great toe b/l) Assessment/Plan Assessment/Plan Assessment/Plan Decubitus ulcers Severe sepsis - resolved Paraplegia Diabetes mellitus Depression, anxiety Plan Consider debridement of ulcers; but would try chemical debridement first. Can start diet since we will not be taking pt to OR today. Continue wound care and dressing changes, Vashe or Dakins for debridement, Continue pain medications as needed, Continue antibiotics Supervisory-Addendum Brief Verification & Attestation Participated in pt care: history Personally performed: exam, history, MDM, supervision of care Care discussed with: Medical Student Procedures: n/a Verification and Attestation of Medical Student E/M Service A medical student performed and documented this service. I then reviewed and verified all information documented by the medical student and made modifications to such information, when appropriate. I personally performed a physical exam, medical decision making and then discussed any differences between the notes and made revisions as necessary to create one note. Pedro Luis Pugh , 05/25/21 , 17:15 LILLIANA BRANTLEY May 25, 2021 09:46 PEDRO LUIS PUGH DO May 25, 2021 17:11
[2021-05-25] MEDS: NOREPINEPHRINE 8 MG/250 ML 250 ML IV SCH ×2 (10:28→16:40)
[2021-05-25] MEDS: morphine INJ 4 MG/ML 1 ML (VIAL/SYRINGE) IV PRN ×3 (10:49→16:10)
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
--- NOTE | 2021-05-25 11:12 | Physical Therapy Evaluation ---
PT Evaluation-General Medical Diagnosis Admission Date May 24, 2021 at 17:33 Medical Diagnosis: septic shock/decubitus ulcers Onset Date: May 24, 2021 Therapy Diagnosis Therapy Diagnosis: impaired mobility Precautions Precautions/Isolations: Fall Prevention, Standard Precautions Referral Physician: Ashleigh Conde DO Reason for Referral: Evaluation/Treatment Medical History Additional Medical History paraplegic Reviewed History: Yes Social History Home: [facility] Prior Prior Level of Function SCALE: Activities may be completed with or without assistive devices. 8-Pecxpcrbxh-emjewzr completes the activity by him/herself with no assistance from a helper. 5-Set-up or Clean-up Assistance-helper sets up or cleans up; patient completes activity. [place] assists only prior to or following the activity. 4-Supervision or Touching Assistance-helper provides verbal cues and/or touching/steadying and/or contact guard assistance as patient completes activity. Assistance may be provided throughout the activity or intermittently. 3-Partial/Moderate Assistance-helper does LESS THAN HALF the effort. [place] lifts, holds or supports trunk or limbs, but provides less than half the effort. 2-Substantial/Maximal Assistance-helper does MORE THAN HALF the effort. [place] lifts or holds trunk or limbs and provides more than half the effort. 9-Fxibfluod-skzggj does ALL the effort. Patient does none of the effort to complete the activity. Or, the assistance of 2 or more helpers is required for the patient to complete the activity. If activity was not attempted, code reason: 7-Patient Refused. 9-Not Applicable-not attempted and the patient did not perform the activity before the current illness, exacerbation or injury. 10-Not Attempted due to Environmental Limitations-(lack of equipment, weather restraints, etc.). 88-Not Attempted due to Medical Conditions or Safety Concerns. Bed Mobility: 1 Transfers (B,C,W/C): 1 Wheelchair Mobility: 5 Patient is a shelia lift transfer to his power wheelchair PT Evaluation-Current Subjective Patient in bed pre tx, agrees to PT, has no complaints of pain. Pt/Family Goals "to improve my wounds" Objective Patient Orientation: Person, Place, Situation Attachments: Oxygen, Colin Catheter, IV ROM/Strength ROM Lower Extremities Patient has bilateral knee contractures, worse on the right. Patient has limited shoulder flexion ROM, can go to about 130 degrees Strength Lower Extremities 0/5 in legs bilaterally, UE's are at least 4/5 bilaterally Sensory Hearing: Functional Sensation Right Lower Extremit: Impaired Sensation Left Lower Extremity: Impaired Transfers Roll Left to Right (QC): 3 mid/mod assist for rolling Assessment/Needs Patient in bed post tx with nurse call, phone, tray, all needs met. Patient will not be put on service for physical therapy. Patient has total care at a [facility], dependent for transfers using a shelia. He is currently at his baseline. Will be discharged from PT at this time. Rehab Potential: Poor PT Plan Treatment/Plan Treatment Plan: Discontinue PT Treatment Duration: May 25, 2021 Frequency: Safety Risks/Education Patient Education: Correct Positioning Discharge Recommendations Plan DC Therapy Discharge Recommendati: 24 Hour Supervision Time/GCodes Time In: 1033 Time Out: 1045 Total Billed Treatment Time: 12 Total Billed Treatment 1 visit RINKU YOUNG PT May 25, 2021 11:12
[2021-05-25 11:25] LABS: HEMATOCRIT 24 % (40-54); HEMOGLOBIN 7.1 g/dL (13.3-17.7); MEAN CORPUSCULAR HEMOGLOBIN 23 pg (25-34); MEAN CORPUSCULAR HGB CONC 29 g/dL (32-36); MEAN CORPUSCULAR VOLUME 77 fL (80-99); MEAN PLATELET VOLUME 8.8 fL (9.0-12.2); PLATELET COUNT 350 10^3/uL (130-400); WHITE BLOOD COUNT 18.5 10^3/uL (4.3-11.0)
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
[2021-05-25] MEDS ORDERED: DOCU100C37 PO (11:35)
[2021-05-25] MEDS ORDERED: ALBU18HF2 INH (11:35)
[2021-05-25] MEDS ORDERED: BISA5TAB8 PO (11:35)
[2021-05-25] MEDS ORDERED: MAGN400O7 PO (11:35)
[2021-05-25] MEDS ORDERED: RISP3TAB62 PO (11:35)
[2021-05-25] MEDS ORDERED: PANT40TA52 PO (11:35)
[2021-05-25] MEDS ORDERED: ONDA-105 PO (11:35)
[2021-05-25] MEDS ORDERED: HYDR-700 PO (11:35)
[2021-05-25] MEDS ORDERED: HYDR-3820 PO (11:35)
[2021-05-25] MEDS ORDERED: NYST15PO2 TOP (11:35)
[2021-05-25] MEDS ORDERED: FURO40TA4 PO (11:35)
[2021-05-25] MEDS ORDERED: POTA-179 PO (11:35)
[2021-05-25] MEDS ORDERED: IBUP-1780 PO (11:35)
[2021-05-25] MEDS ORDERED: LACT10SO3 PO (11:35)
[2021-05-25] MEDS ORDERED: ASCO500T17 PO (11:35)
[2021-05-25] MEDS ORDERED: CNC1KV IM (11:35)
[2021-05-25] MEDS ORDERED: BACL5TAB PO (11:35)
[2021-05-25] MEDS ORDERED: CLOZ100T7 PO (11:35)
[2021-05-25] MEDS ORDERED: MENT4OIN TP (11:35)
[2021-05-25] MEDS ORDERED: VORT20TA PO (11:35)
[2021-05-25] MEDS ORDERED: METO-333 PO (11:35)
[2021-05-25] MEDS ORDERED: ACET1000 IR (11:35)
[2021-05-25] MEDS ORDERED: MULT-166 PO (11:35)
[2021-05-25] MEDS ORDERED: CEFT2VIA11 IM (11:35)
[2021-05-25] MEDS ORDERED: CHOL500049 PO (11:35)
[2021-05-25] MEDS ORDERED: GABA300C PO (11:35)
[2021-05-25] MEDS ORDERED: FERR325T18 PO (11:35)
[2021-05-25] MEDS ORDERED: DULO30CA49 PO (11:35)
[2021-05-25] MEDS ORDERED: CHOL-34 PO (11:35)
[2021-05-25] MEDS ORDERED: APIX5TAB PO (11:35)
[2021-05-25] MEDS ORDERED: DULO60CA59 PO (11:35)
[2021-05-25] MEDS ORDERED: ZINC50TA58 PO (11:35)
[2021-05-25] MEDS ORDERED: CLOZ25TA3 PO (11:35)
[2021-05-25] MEDS ORDERED: OXYB10TA29 PO (11:35)
[2021-05-25] MEDS ORDERED: METF-397 PO (11:35)
[2021-05-25 11:40] LABS: POTASSIUM 3.4 MMOL/L (3.6-5.0)
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
[2021-05-25 12:53] LABS: INR 1.5 (0.8-1.4); PROTHROMBIN TIME PATIENT 18.2 SEC (12.2-14.7)
[2021-05-25 16:50] LABS: BILIRUBIN,URINE NEGATIVE (NEGATIVE); CLARITY,URINE SL CLOUDY; COLOR,URINE YELLOW; GLUCOSE, URINE (UA) NEGATIVE (NEGATIVE); KETONES,URINE NEGATIVE (NEGATIVE); LEUKOCYTE ESTERASE ,URINE 1+ (NEGATIVE); NITRITE,URINE NEGATIVE (NEGATIVE); PH,URINE 6.5 (5-9); PROTEIN,URINE 1+ (NEGATIVE)
[2021-05-25 16:56] LABS: BACTERIA,URINE TRACE /HPF; RBC,URINE RARE /HPF; SQUAMOUS EPITHELIAL CELL,UR 0-2 /HPF
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
[2021-05-25] MEDS ORDERED: ALBUMIN IV ONE (17:52)
[2021-05-25] MEDS ORDERED: ALBUMIN 25% 25 GM/100 ML 100 ML IV ONE (18:00)
--- NOTE | 2021-05-25 18:21 | Tele-ICU Progress Note ---
Progress Note called by RN patient is more confused ( new ) and tachycardic as per RN exam - new tenderness on left site of colostomy sent stat cbc, lactate , abg given transfusion albumin , cont pressors if no drop in HB might need CT abd/pelvis ( sx oon consult alreadfy for wounds Focused Exam Lactate Level 05/24/21 18:00: Lactic Acid Level 1.12 05/25/21 05:35: Lactic Acid Level 0.89 Height, Weight, BMI Height: '" Weight: lbs. oz. kg; 37.48 BMI Method: SUZANNE FARAH MD May 25, 2021 18:21
[2021-05-25 18:31] LABS: HEMATOCRIT 25 % (40-54); HEMOGLOBIN 7.2 g/dL (13.3-17.7); MEAN CORPUSCULAR HEMOGLOBIN 22 pg (25-34); MEAN CORPUSCULAR HGB CONC 28 g/dL (32-36); MEAN CORPUSCULAR VOLUME 78 fL (80-99); MEAN PLATELET VOLUME 8.8 fL (9.0-12.2); PLATELET COUNT 366 10^3/uL (130-400); WHITE BLOOD COUNT 20.8 10^3/uL (4.3-11.0)
[2021-05-25 18:57] LABS: ABG BASE EXCESS 6.8 MMOL/L (-2.5-2.5); ABG OXYGEN SATURATION 95 % (94-100); ABG PCO2 66 MMHG (35-45); ABG PO2 93 MMHG (79-93); ABG TCO2 34.2 MMOL/L (21.0-31.0)
[2021-05-25 18:58] LABS: ABG PH 7.32 (7.37-7.43)
[2021-05-25 18:59] LABS: PATIENT TEMP 38.6; VENTILATOR NO
[2021-05-25] MEDS: TOLTERODINE LA 4 MG (DETROL) CAP PO SCH (20:03)
[2021-05-25] MEDS: MUPIROCIN 2% OINT 22 GM (BACTROBAN) TUBE TOP SCH (20:05)
[2021-05-26] MEDS: NS IV 1000 ML 1,000 ML IV SCH ×3 (00:50→20:02)
[2021-05-26] MEDS: NOREPINEPHRINE 8 MG/250 ML 250 ML IV SCH ×2 (02:03→08:32)
[2021-05-26] MEDS: MEROPENEM 1,000 MG in NS (IVPB) 100 ML IV SCH ×3 (04:10→20:02)
[2021-05-26 04:33] LABS: BASOPHILS # (AUTO) 0.1 10^3/uL (0.0-0.1); BASOPHILS % (AUTO) 0 % (0-10); EOSINOPHILS # (AUTO) 0.3 10^3/uL (0.0-0.3); EOSINOPHILS % (AUTO) 2 % (0-10); HEMATOCRIT 22 % (40-54); LYMPHOCYTES # (AUTO) 1.2 10^3/uL (1.0-4.0); LYMPHOCYTES % (AUTO) 7 % (12-44); MEAN CORPUSCULAR HEMOGLOBIN 22 pg (25-34); MEAN CORPUSCULAR HGB CONC 28 g/dL (32-36); MEAN CORPUSCULAR VOLUME 79 fL (80-99); MEAN PLATELET VOLUME 8.7 fL (9.0-12.2); MONOCYTES # (AUTO) 1.1 10^3/uL (0.0-1.0); MONOCYTES % (AUTO) 7 % (0-12); NEUTROPHILS # (AUTO) 13.7 10^3/uL (1.8-7.8); NEUTROPHILS % (AUTO) 82 % (42-75); PLATELET COUNT 290 10^3/uL (130-400); WHITE BLOOD COUNT 16.7 10^3/uL (4.3-11.0)
[2021-05-26 04:36] LABS: HEMOGLOBIN 6.3 g/dL (13.3-17.7)
--- NOTE | 2021-05-26 04:49 | Tele-ICU Progress Note ---
Subjective Date Seen by a Provider: May 26, 2021 Time Seen by a Provider: 04:48 Sepsis Event Evaluation Height, Weight, BMI Height: '" Weight: lbs. oz. kg; 37.48 BMI Method: Focused Exam Lactate Level 05/24/21 18:00: Lactic Acid Level 1.12 05/25/21 05:35: Lactic Acid Level 0.89 05/25/21 18:50: Lactic Acid Level 0.82 Exam Exam Patient acknowledged, consented, and participated in this virtual visit which was conducted using real time audio/video Vital Signs Date Time Temp Pulse Resp B/P (MAP) Pulse Ox O2 Delivery O2 Flow Rate FiO2 05/26/21 04:00 Nasal Cannula 4.00 05/26/21 03:00 112 11 110/67 97 Nasal Cannula 4.00 05/26/21 02:03 98 110/71 05/26/21 02:00 99 11 103/63 98 Nasal Cannula 4.00 05/26/21 01:00 118 10 92/51 96 Nasal Cannula 4.00 05/26/21 00:39 110 05/26/21 00:00 109 15 120/66 98 Nasal Cannula 4.00 05/26/21 00:00 36.8 05/25/21 23:59 Nasal Cannula 4.00 05/25/21 23:00 112 20 112/61 97 Nasal Cannula 4.00 05/25/21 22:00 112 22 120/69 98 Nasal Cannula 4.00 05/25/21 21:00 115 17 115/63 98 Nasal Cannula 4.00 05/25/21 20:00 Nasal Cannula 4.00 05/25/21 20:00 125 23 126/66 98 Nasal Cannula 4.00 05/25/21 19:45 38.2 05/25/21 19:00 133 05/25/21 19:00 134 11 112/63 98 Nasal Cannula 4.00 05/25/21 18:00 38.5 133 20 125/90 100 05/25/21 17:00 123 35 93/57 97 05/25/21 16:45 120 18 88/75 100 05/25/21 16:40 121 121/76 05/25/21 16:30 118 22 121/76 98 05/25/21 16:15 122 12 96/83 99 05/25/21 16:03 123 15 79 05/25/21 16:00 121 14 122/93 98 05/25/21 16:00 Nasal Cannula 4.00 05/25/21 15:45 117 17 104/81 54 05/25/21 15:30 115 12 121/60 97 05/25/21 15:03 111 12 99 05/25/21 15:00 Nasal Cannula 4.00 05/25/21 15:00 110 11 97/52 98 05/25/21 14:47 110 10 80/65 98 05/25/21 14:45 109 10 79/62 99 05/25/21 14:15 111 10 120/58 98 05/25/21 14:03 112 16 97 05/25/21 14:00 112 13 116/59 99 05/25/21 13:51 112 10 100/69 96 05/25/21 13:45 114 13 97/47 97 05/25/21 13:30 112 23 113/71 85 05/25/21 13:15 117 17 110/61 97 05/25/21 13:00 116 05/25/21 12:00 Nasal Cannula 4.00 05/25/21 11:51 36.2 05/25/21 10:28 114 109/62 05/25/21 10:27 Nasal Cannula 5.00 05/25/21 08:23 36.3 05/25/21 08:00 Nasal Cannula 4.00 05/25/21 07:00 115 05/25/21 06:00 120 15 104/70 95 Nasal Cannula 4.00 05/25/21 05:00 122 12 109/53 95 Nasal Cannula 4.00 I & O 05/26/21 07:00 Intake Total 4190 ml Output Total 1450 ml Balance 2740 ml Height & Weight Height: '" Weight: lbs. oz. kg; 37.48 BMI Method: General Appearance: Anxious, Chronically ill Cardiovascular: Normal Peripheral Pulses, Tachycardia Capillary Refill: Less Than 3 Seconds Gastrointestinal: soft, no organomegaly, tenderness (diffuse, worse over lower 2 quadrants) Neurologic/Psychiatric: Alert, Oriented x3, Depressed Affect Results Lab Laboratory Tests 05/24/21 18:00 05/25/21 01:45 05/25/21 11:20 05/25/21 18:05 05/26/21 04:25 Assessment/Plan Assessment/Plan Hb<7 1 u prbc to be transfused pt is stable hemodynamically/ no active bleeding BROOKE MALDONADO MD May 26, 2021 04:49
[2021-05-26 04:53] LABS: ALBUMIN 2.3 GM/DL (3.2-4.5); POTASSIUM 3.7 MMOL/L (3.6-5.0)
[2021-05-26 04:54] LABS: CALCIUM 8.1 MG/DL (8.5-10.1)
[2021-05-26 04:55] LABS: TOTAL PROTEIN 5.9 GM/DL (6.4-8.2)
[2021-05-26 04:57] LABS: BILIRUBIN,TOTAL 0.5 MG/DL (0.1-1.0)
[2021-05-26 04:59] LABS: CREATININE SERUM 0.47 MG/DL (0.60-1.30); PHOSPHORUS 4.2 MG/DL (2.3-4.7)
[2021-05-26 05:01] LABS: MAGNESIUM 1.8 MG/DL (1.6-2.4)
[2021-05-26] MEDS: MAGNESIUM 1 GM/100 ML IVPB 100 ML IV SCH (05:03)
[2021-05-26] MEDS: POTASSIUM CL 10MEQ/50ML IVPB 50 ML IV SCH (05:03)
[2021-05-26] MEDS: KCL 20 MEQ TAB (K-DUR) PO SCH (05:03)
--- NOTE | 2021-05-26 06:06 | Diagnostic Imaging Report ---
INDICATION: Dyspnea. AP view of chest is obtained with comparison made study one day earlier. FINDINGS: There is suboptimal inspiration with continued bilateral perihilar and basilar atelectasis and/or pneumonitis. No pneumothorax or consolidation is identified. Surgical findings are seen in the lumbar spine. IMPRESSION: Hypoventilation with continued bilateral atelectasis and/or pneumonitis. Dictated by: Dictated on workstation # [id number]
--- NOTE | 2021-05-26 07:40 | Progress Note - Surgery ---
LILLIANA BRANTLEY 05/26/21 0740: Subjective Date Seen by a Provider: May 26, 2021 Time Seen by a Provider: 06:42 Subjective/Events-last exam Pt reports that his pain has been well controlled. Nursing reports that his wound dressings were changed 3 times last night and the bandages were soaked through with discharge. Pt did get a Vashe wound therapy treatment yesterday which he tolerated well. He states that has been having some abdominal pain. Denied any nausea or vomiting. Pt also endorses having some chills and fatigue. When asked he denied having any other concerns. Review of Systems General: Chills, Fatigue HEENT: No Head Aches, No Visual Changes Pulmonary: No Dyspnea, No Cough Cardiovascular: No: Chest Pain, Palpitations Gastrointestinal: Abdominal Pain; No: Nausea, Vomiting Musculoskeletal: No: shoulder pain, back pain Neurological: No: Weakness, Numbness Focused Exam Lactate Level 05/24/21 18:00: Lactic Acid Level 1.12 05/25/21 05:35: Lactic Acid Level 0.89 05/25/21 18:50: Lactic Acid Level 0.82 Objective Exam Vital Signs Date Time Temp Pulse Resp B/P (MAP) Pulse Ox O2 Delivery O2 Flow Rate FiO2 05/26/21 06:00 116 11 118/57 97 Nasal Cannula 4.00 05/26/21 05:00 117 13 121/54 96 Nasal Cannula 4.00 05/26/21 04:00 Nasal Cannula 4.00 05/26/21 04:00 115 12 126/59 96 Nasal Cannula 4.00 05/26/21 03:46 36.2 Nasal Cannula 4.00 05/26/21 03:00 112 11 110/67 97 Nasal Cannula 4.00 05/26/21 02:03 98 110/71 05/26/21 02:00 99 11 103/63 98 Nasal Cannula 4.00 05/26/21 01:00 118 10 92/51 96 Nasal Cannula 4.00 05/26/21 00:39 110 05/26/21 00:00 109 15 120/66 98 Nasal Cannula 4.00 05/26/21 00:00 36.8 05/25/21 23:59 Nasal Cannula 4.00 05/25/21 23:00 112 20 112/61 97 Nasal Cannula 4.00 05/25/21 22:00 112 22 120/69 98 Nasal Cannula 4.00 05/25/21 21:00 115 17 115/63 98 Nasal Cannula 4.00 05/25/21 20:00 Nasal Cannula 4.00 05/25/21 20:00 125 23 126/66 98 Nasal Cannula 4.00 05/25/21 19:45 38.2 05/25/21 19:00 133 05/25/21 19:00 134 11 112/63 98 Nasal Cannula 4.00 05/25/21 18:00 38.5 133 20 125/90 100 05/25/21 17:00 123 35 93/57 97 05/25/21 16:45 120 18 88/75 100 05/25/21 16:40 121 121/76 05/25/21 16:30 118 22 121/76 98 05/25/21 16:15 122 12 96/83 99 05/25/21 16:03 123 15 79 05/25/21 16:00 121 14 122/93 98 05/25/21 16:00 Nasal Cannula 4.00 05/25/21 15:45 117 17 104/81 54 05/25/21 15:30 115 12 121/60 97 05/25/21 15:03 111 12 99 05/25/21 15:00 Nasal Cannula 4.00 05/25/21 15:00 110 11 97/52 98 05/25/21 14:47 110 10 80/65 98 05/25/21 14:45 109 10 79/62 99 05/25/21 14:15 111 10 120/58 98 05/25/21 14:03 112 16 97 05/25/21 14:00 112 13 116/59 99 05/25/21 13:51 112 10 100/69 96 05/25/21 13:45 114 13 97/47 97 05/25/21 13:30 112 23 113/71 85 05/25/21 13:15 117 17 110/61 97 05/25/21 13:00 116 05/25/21 12:00 Nasal Cannula 4.00 05/25/21 11:51 36.2 05/25/21 10:28 114 109/62 05/25/21 10:27 Nasal Cannula 5.00 05/25/21 08:23 36.3 05/25/21 08:00 Nasal Cannula 4.00 I & O 05/26/21 07:00 Intake Total 4250 ml Output Total 2700 ml Balance 1550 ml Capillary Refill : Less Than 3 Seconds General Appearance: No Apparent Distress, Chronically ill, Obese Neck: Non Tender, Supple Respiratory: No Accessory Muscle Use, No Respiratory Distress, Decreased Breath Sounds Cardiovascular: Normal Peripheral Pulses, Tachycardia Gastrointestinal: soft, tenderness (diffuse) Extremity: Normal Capillary Refill, Non Tender Neurologic/Psychiatric: Alert, Depressed Affect Skin: Warm/Dry, Other (Pt declined having wounds checked. ) Results Lab Laboratory Tests 05/25/21 10:31: Glucometer 142H 05/25/21 11:20: White Blood Count 18.5H, Red Blood Count 3.15L, Hemoglobin 7.1L, Hematocrit 24L, Mean Corpuscular Volume 77L, Mean Corpuscular Hemoglobin 23L, Mean Corpuscular Hemoglobin Concent 29L, Red Cell Distribution Width 22.5H, Platelet Count 350, Mean Platelet Volume 8.8L, Potassium Level 3.4L, Magnesium Level 2.0, Total Cortisol 9.1 05/25/21 12:35: Prothrombin Time 18.2H, INR Comment 1.5H 05/25/21 15:31: Glucometer 94 05/25/21 16:33: Urine Color YELLOW, Urine Clarity SL CLOUDY, Urine pH 6.5, Urine Specific [place] 1.020, Urine Protein 1+H, Urine Glucose (UA) NEGATIVE, Urine Ketones NEGATIVE, Urine Nitrite NEGATIVE, Urine Bilirubin NEGATIVE, Urine Urobilinogen 0.2, Urine Leukocyte Esterase 1+H, Urine RBC (Auto) 3+H, Urine RBC RARE, Urine WBC 5-10H, Urine Squamous Epithelial Cells 0-2, Urine Crystals NONE, Urine B acteria TRACE, Urine Casts NONE, Urine Mucus NEGATIVE, Urine Culture Indicated YES 05/25/21 18:05: White Blood Count 20.8H, Red Blood Count 3.27L, Hemoglobin 7.2L, Hematocrit 25L, Mean Corpuscular Volume 78L, Mean Corpuscular Hemoglobin 22L, Mean Corpuscular Hemoglobin Concent 28L, Red Cell Distribution Width 22.5H, Platelet Count 366, Mean Platelet Volume 8.8L 05/25/21 18:45: Blood Gas Puncture Site UNKNOWN, Blood Gas Patient Temperature 38.6, Arterial Blood pH 7.32*L, Arterial Blood Partial Pressure CO2 66H, Arterial Blood Partial Pressure O2 93, Arterial Blood HCO3 32H, Arterial Blood Total CO2 34.2H, Arterial Blood Oxygen Saturation 95, Arterial Blood Base Excess 6.8H, Arsenio Test NA, Blood Gas Ventilator Setting NO, Blood Gas Inspired Oxygen UNKNOWN 05/25/21 18:50: Lactic Acid Level 0.82 05/25/21 20:22: Glucometer 118H 05/26/21 04:25: White Blood Count 16.7H, Red Blood Count 2.85L, Hemoglobin 6.3*L, Hematocrit 22L , Mean Corpuscular Volume 79L, Mean Corpuscular Hemoglobin 22L, Mean Corpuscular Hemoglobin Concent 28L, Red Cell Distribution Width 22.6H, Platelet Count 290, Mean Platelet Volume 8.7L, Immature Granulocyte % (Auto) 3, Neutrophils (%) (Auto) 82H, Lymphocytes (%) (Auto) 7L, Monocytes (%) (Auto) 7, Eosinophils (%) (Auto) 2, Basophils (%) (Auto) 0, Neutrophils # (Auto) 13.7H, Lymphocytes # (Auto) 1.2, Monocytes # (Auto) 1.1H, Eosinophils # (Auto) 0.3, Basophils # (Auto) 0.1, Immature Granulocyte # (Auto) 0.5H, Sodium Level 139, Potassium Level 3.7, Chloride Level 103, Carbon Dioxide Level 27, Anion Gap 9, Blood Urea Nitrogen 6L, Creatinine 0.47L, Estimat Glomerular Filtration Rate 199, BUN/Creatinine Ratio 13, Glucose Level 123H, Calcium Level 8.1L, Corrected Calcium 9.5, Phosphorus Level 4.2, Magnesium Level 1.8, Total Bilirubin 0.5, Aspartate Amino Transf (AST/SGOT) 16, Alanine Aminotransferase (ALT/SGPT) 22, Alkaline Phosphatase 132, Total Protein 5.9L, Albumin 2.3L Assessment/Plan Assessment/Plan Assessment/Plan Assessment Decubitus ulcers Paraplegia Diabetes mellitus Depression, anxiety Plan Consider debridement of ulcers; Trying chemical debridement first. Continue wound care and dressing changes, Vashe or Dakins for debridement, Continue pain medications as needed, Continue antibiotics Currently on heart healthy diet PAWEL TOUSSAINT DO 05/26/21 1040: Subjective Time Seen by a Provider: 09:05 Subjective/Events-last exam Pt seen and examined, states he is doing well; does not have abdominal pain like yesterday. Tolerating diet. Review of Systems General: Chills, Fatigue Pulmonary: No Dyspnea, No Cough Cardiovascular: No: Chest Pain, Palpitations Gastrointestinal: Abdominal Pain; No: Nausea, Vomiting Objective Exam General Appearance: Chronically ill, Obese Respiratory: No Accessory Muscle Use, No Respiratory Distress, Decreased Breath Sounds Cardiovascular: Tachycardia Gastrointestinal: soft, tenderness (diffuse) Assessment/Plan Assessment/Plan Assessment/Plan Decubitus ulcers Paraplegia Diabetes mellitus Depression, anxiety Plan Consider debridement of ulcers; Trying chemical debridement first. Continue wound care and dressing changes, Vashe or Dakins for debridement, Continue pain medications as needed, Continue antibiotics Currently on heart healthy diet Supervisory-Addendum Brief Verification & Attestation Participated in pt care: history, MDM, physical Personally performed: exam, history, MDM, supervision of care Care discussed with: Medical Student Procedures: n/a Verification and Attestation of Medical Student E/M Service A medical student performed and documented this service. I then reviewed and verified all information documented by the medical student and made modifications to such information, when appropriate. I personally performed a physical exam, medical decision making and then discussed any differences between the notes and made revisions as necessary to create one note. Pawel Toussaint , 05/26/21 , 10:40 LILLIANA BRANTLEY May 26, 2021 07:40 PAWEL TOUSSAINT DO May 26, 2021 10:40
[2021-05-26] MEDS: morphine INJ 4 MG/ML 1 ML (VIAL/SYRINGE) IV PRN ×4 (08:29→17:47)
[2021-05-26] MEDS ORDERED: NS IV 500 ML 500 ML IV SCH (08:30)
[2021-05-26] MEDS: PANTOPRAZOLE 40 MG (PROTONIX) VIAL IV SCH (08:31)
[2021-05-26] MEDS: SENNA W/DOCUSATE (SENOKOT S) TABLET PO SCH ×2 (08:31→20:02)
[2021-05-26] MEDS: LINEZOLID IVPB 300 ML IV SCH ×2 (08:31→20:03)
[2021-05-26] MEDS: polyethylene glycoL POWDER 17 GM (MIRALAX) PACK PO SCH ×2 (08:31→20:02)
[2021-05-26] MEDS: POVIDONE (BETADINE) 10% SOLN 240 ML BTL TOP SCH (08:37)
[2021-05-26] MEDS: MUPIROCIN 2% OINT 22 GM (BACTROBAN) TUBE TOP SCH ×2 (08:38→20:03)
[2021-05-26] MEDS: NICOTINE 21 MG (NICODERM) PATCH TD SCH (09:32)
[2021-05-26 10:29] VITALS: BP 139/79
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
[2021-05-26 10:49] VITALS: BP 112/69
--- NOTE | 2021-05-26 11:26 | CONSULTATION REPORT ---
DATE OF SERVICE: 05/26/2021 ATTENDING PHYSICIAN: Dr. Conde. SUMMARY: A 40-year-old white man paraplegic, who had a suprapubic tube placement several months ago in another hospital. He is being admitted for sepsis and septic shock and wound infection and was found to be incontinent both per urethra and around the suprapubic tube. I ordered to put a catheter in the urethra and that took care of the leakage there that have a seal around the suprapubic tube, which has slowed down the leakage as well. I have started him on Detrol LA 4 mg daily yesterday. We will see how he does on that. If we need to increase it, we will. IMPRESSION: Urinary incontinence. RECOMMENDATIONS: As above. Job ID: [id number] DocumentID: [id number] Dictated Date: 05/26/2021 11:14:19 Soda Column Operator Date: 05/26/2021 11:26:20 Dictated By: BRITNEY TAYLOR MD MTDD
[2021-05-26] MEDS ORDERED: MILK OF MAGNESIA 400 MG/5 ML 30 ML UDC PO PRN (12:00)
[2021-05-26] MEDS ORDERED: METHYL SALICYLATE/MENTHOL (BENGAY, MUSCLE RUB) 3 OZ TUBE TP PRN (12:00)
[2021-05-26] MEDS ORDERED: CYANOCOBALAMIN INJ 1000 MCG/ML IM SCH ×2 (12:00→16:30)
[2021-05-26] MEDS ORDERED: RT-ALBUTEROL SULF 2.5 MG/3 ML PRE-MIX VIAL INH PRN (12:00)
[2021-05-26] MEDS ORDERED: ONDANSETRON 4 MG (ZOFRAN) ORAL DISSOLVE TAB PO PRN (12:30)
[2021-05-26] MEDS: GABAPENTIN 300 MG (NEURONTIN) CAP PO SCH ×2 (12:38→20:02)
[2021-05-26] MEDS: BACLOFEN 10 MG (LIORESAL) TAB PO SCH ×2 (12:38→20:01)
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
[2021-05-26 12:51] VITALS: BP 93/78
[2021-05-26] MEDS ORDERED: LACTULOSE 10 GM/15 ML 30 ML POUR BOTTLE FOR ENEMA PR SCH (13:00)
[2021-05-26] MEDS ORDERED: LACTULOSE 10 GM/15 ML 30 ML POUR BOTTLE FOR ENEMA PO SCH (13:00)
[2021-05-26] MEDS: HYPOCHLOROUS ACID/NaCl (VASHE) 250 ML IR PRN ×2 (13:45→20:06)
[2021-05-26] MEDS: risperiDONE 1 MG (RisperDAL) TAB PO SCH (15:42)
[2021-05-26] MEDS: meTOprolol TARTRATE 25 MG (LOPRESSOR) TABLET PO SCH (15:50)
[2021-05-26] MEDS: DOCUSATE SODIUM 100 MG (COLACE) CAP PO SCH (20:01)
[2021-05-26] MEDS: ASCORBIC ACID (VIT C) 500 MG TABLET PO SCH (20:02)
[2021-05-26] MEDS: TOLTERODINE LA 4 MG (DETROL) CAP PO SCH (20:02)
[2021-05-26] MEDS: BISACODYL 5 MG (DULCOLAX) TABLET PO SCH (20:02)
[2021-05-26] MEDS: MICONAZOLE 2% POWDER (DESENEX AF) 90 GM TOP SCH (20:03)
[2021-05-26] MEDS: ENOXAPARIN 40 MG/0.4 ML (LOVENOX) SYR SC SCH (20:09)
[2021-05-26] MEDS: cloZAPine 25 MG (CLOZARIL) TAB PO SCH (21:19)
[2021-05-26] MEDS: ACETIC ACID 0.25% IR SCH (21:19)
[2021-05-27] MEDS: MEROPENEM 1,000 MG in NS (IVPB) 100 ML IV SCH ×3 (04:20→20:16)
[2021-05-27 04:55] LABS: BASOPHILS % (AUTO) 0 % (0-10); EOSINOPHILS # (AUTO) 0.2 10^3/uL (0.0-0.3); EOSINOPHILS % (AUTO) 2 % (0-10); HEMATOCRIT 24 % (40-54); LYMPHOCYTES # (AUTO) 1.2 10^3/uL (1.0-4.0); LYMPHOCYTES % (AUTO) 13 % (12-44); MEAN CORPUSCULAR HEMOGLOBIN 23 pg (25-34); MEAN CORPUSCULAR HGB CONC 29 g/dL (32-36); MEAN CORPUSCULAR VOLUME 80 fL (80-99); MEAN PLATELET VOLUME 8.8 fL (9.0-12.2); MONOCYTES # (AUTO) 0.6 10^3/uL (0.0-1.0); MONOCYTES % (AUTO) 7 % (0-12); NEUTROPHILS # (AUTO) 6.7 10^3/uL (1.8-7.8); NEUTROPHILS % (AUTO) 73 % (42-75); PLATELET COUNT 254 10^3/uL (130-400); WHITE BLOOD COUNT 9.2 10^3/uL (4.3-11.0)
[2021-05-27 05:06] LABS: ALBUMIN 2.3 GM/DL (3.2-4.5)
[2021-05-27 05:07] LABS: POTASSIUM 3.7 MMOL/L (3.6-5.0)
[2021-05-27 05:08] LABS: CALCIUM 8.4 MG/DL (8.5-10.1)
[2021-05-27 05:09] LABS: TOTAL PROTEIN 6.1 GM/DL (6.4-8.2)
[2021-05-27 05:11] LABS: BILIRUBIN,TOTAL 0.4 MG/DL (0.1-1.0)
[2021-05-27 05:12] LABS: PHOSPHORUS 4.2 MG/DL (2.3-4.7)
[2021-05-27 05:13] LABS: CREATININE SERUM 0.49 MG/DL (0.60-1.30); HEMOGLOBIN 6.8 g/dL (13.3-17.7)
[2021-05-27 05:16] LABS: MAGNESIUM 1.8 MG/DL (1.6-2.4)
[2021-05-27] MEDS: POTASSIUM CL 10MEQ/50ML IVPB 50 ML IV SCH (05:34)
[2021-05-27] MEDS: MAGNESIUM 1 GM/100 ML IVPB 100 ML IV SCH (05:34)
[2021-05-27] MEDS: KCL 20 MEQ TAB (K-DUR) PO SCH (05:34)
[2021-05-27] MEDS: meTOprolol TARTRATE 25 MG (LOPRESSOR) TABLET PO SCH ×2 (05:48→15:33)
[2021-05-27] MEDS: risperiDONE 1 MG (RisperDAL) TAB PO SCH ×2 (05:48→15:33)
--- NOTE | 2021-05-27 06:57 | Progress Note - Surgery ---
ADELSO SHE[facility]AN [facility] 05/27/21 0657: Subjective Date Seen by a Provider: May 27, 2021 Time Seen by a Provider: 07:00 Subjective/Events-last exam Afebrile, and weaned off of pressors Patient asleep during encounter WBC continues to trend down (9.2) Review of Systems General: Other (Could not assess ) Pulmonary: Other (Could not assess ) Cardiovascular: Other (Could not assess ) Gastrointestinal: Other (Could not assess ) Genitourinary: Other (Could not assess ) Neurological: Other (Could not assess ) Focused Exam Lactate Level 05/24/21 18:00: Lactic Acid Level 1.12 05/25/21 05:35: Lactic Acid Level 0.89 05/25/21 18:50: Lactic Acid Level 0.82 Objective Exam Vital Signs Date Time Temp Pulse Resp B/P (MAP) Pulse Ox O2 Delivery O2 Flow Rate FiO2 05/27/21 06:00 115 14 86/51 94 Nasal Cannula 5.00 05/27/21 05:00 116 12 98/52 95 Nasal Cannula 5.00 05/27/21 04:00 116 13 97/58 94 Nasal Cannula 5.00 05/27/21 04:00 Nasal Cannula 5.00 05/27/21 04:00 36.2 05/27/21 03:00 115 12 94/64 96 Nasal Cannula 5.00 05/27/21 02:00 116 20 98/60 95 Nasal Cannula 5.00 05/27/21 01:00 114 16 95/47 93 Nasal Cannula 5.00 05/27/21 01:00 115 05/27/21 00:00 114 12 106/57 93 Nasal Cannula 5.00 05/27/21 00:00 36.9 Nasal Cannula 5.00 05/26/21 23:59 Nasal Cannula 5.00 05/26/21 23:00 112 11 112/92 92 Nasal Cannula 5.00 05/26/21 22:00 113 10 97/54 92 Nasal Cannula 5.00 05/26/21 21:00 113 11 95/55 92 Nasal Cannula 5.00 05/26/21 20:00 Nasal Cannula 5.00 05/26/21 20:00 115 12 106/60 93 Nasal Cannula 5.00 05/26/21 20:00 36.9 Nasal Cannula 5.00 05/26/21 19:00 122 11 96/67 93 Nasal Cannula 5.00 05/26/21 19:00 121 05/26/21 18:00 118 12 107/63 93 Nasal Cannula 5.00 05/26/21 17:00 121 25 104/70 92 Nasal Cannula 5.00 05/26/21 16:00 120 12 107/66 90 Nasal Cannula 5.00 05/26/21 15:50 Nasal Cannula 5.00 05/26/21 15:32 37.0 05/26/21 15:00 115 12 110/71 94 Nasal Cannula 5.00 05/26/21 14:00 121 16 119/70 96 Nasal Cannula 5.00 05/26/21 13:00 120 05/26/21 13:00 121 12 103/66 92 Nasal Cannula 5.00 05/26/21 12:51 36.1 122 17 93/78 95 Nasal Cannula 5.00 05/26/21 12:00 123 16 115/80 98 Nasal Cannula 5.00 05/26/21 12:00 Nasal Cannula 5.00 05/26/21 11:43 36.4 05/26/21 11:00 130 20 130/67 86 Nasal Cannula 5.00 05/26/21 10:49 37.1 128 17 112/69 97 Nasal Cannula 5.00 05/26/21 10:29 37.4 131 16 139/79 98 Nasal Cannula 5.00 05/26/21 10:00 133 19 112/67 97 Nasal Cannula 5.00 05/26/21 09:00 128 18 139/89 95 Nasal Cannula 5.00 05/26/21 08:32 116 118/57 05/26/21 08:00 130 18 131/72 96 Nasal Cannula 5.00 05/26/21 08:00 Nasal Cannula 5.00 05/26/21 07:49 96 05/26/21 07:44 37.2 05/26/21 07:00 Nasal Cannula 5.00 05/26/21 07:00 116 13 122/80 97 Nasal Cannula 5.00 05/26/21 07:00 119 I & O 05/27/21 07:00 Intake Total 3500 ml Output Total 3800 ml Balance -300 ml Capillary Refill : Less Than 3 Seconds General Appearance: No Apparent Distress, WD/WN, Chronically ill, Obese Neck: Non Tender, Supple Respiratory: No Accessory Muscle Use, No Respiratory Distress, Decreased Breath Sounds Cardiovascular: Regular Rate, Rhythm Peripheral Pulses: 2+ Radial Pulses (R), 2+ Radial Pulses (L) Gastrointestinal: soft, other (Colostomy in LLQ) Extremity: Normal Capillary Refill, Non Tender Neurologic/Psychiatric: Alert, Oriented x3 Skin: Warm/Dry, Other (Pt declined having wounds checked. ) Results Lab Laboratory Tests 05/26/21 10:50: Glucometer 107 05/26/21 15:35: Glucometer 116H 05/26/21 21:33: Glucometer 115H 05/27/21 04:49: White Blood Count 9.2, Red Blood Count 2.97L, Hemoglobin 6.8*L, Hematocrit 24L, Mean Corpuscular Volume 80, Mean Corpuscular Hemoglobin 23L, Mean Corpuscular Hemoglobin Concent 29L, Red Cell Distribution Width 22.3H, Platelet Count 254, Mean Platelet Volume 8.8L, Immature Granulocyte % (Auto) 5, Neutrophils (%) (Auto) 73, Lymphocytes (%) (Auto) 13, Monocytes (%) (Auto) 7, Eosinophils (%) (Auto) 2, Basophils (%) (Auto) 0, Neutrophils # (Auto) 6.7, Lymphocytes # (Auto) 1.2, Monocytes # (Auto) 0.6, Eosinophils # (Auto) 0.2, Basophils # (Auto) 0.0, Immature Granulocyte # (Auto) 0.4H, Sodium Level 142, Potassium Level 3.7, Chloride Level 100, Carbon Dioxide Level 33H, Anion Gap 9, Blood Urea Nitrogen 6L, Creatinine 0.49L, Estimat Glomerular Filtration Rate 189, BUN/Creatinine Ratio 12, Glucose Level 108H, Calcium Level 8.4L, Corrected Calcium 9.8, Phosphorus Level 4.2, Magnesium Level 1.8, Total Bilirubin 0.4, Aspartate Amino Transf (AST/SGOT) 25, Alanine Aminotransferase (ALT/SGPT) 28, Alkaline Phosphatase 123, Total Protein 6.1L, Albumin 2.3L Microbiology 05/25/21 Urine Culture - Preliminary, Resulted Yeast species 05/25/21 Blood Culture - Preliminary, Resulted No growth 05/24/21 Gram Stain - Final, Resulted 05/24/21 Wound Culture - Preliminary, Resulted Gram Negative David Pseudomonas aeruginosa Staphylococcus aureus Probable Enterococcus Species Testing In Progress Assessment/Plan Assessment/Plan Assessment/Plan Decubitus ulcers Paraplegia Diabetes mellitus Depression, anxiety Leukocytosis (resolved) Plan Continue Antibiotics Consider debridement of ulcers; Trying chemical debridement first. Continue wound care and dressing changes, Vashe or Dakins for debridement, Continue pain medications as needed Currently on heart healthy diet TARAS BAIRD DO 05/27/212052: Subjective Subjective/Events-last exam Patient states he is doing well the time of my visit. He just finished eating some food. Patient had a lot of urine leakage from suprapubic catheter and hypospadia. Patient has no other complaints at this time. Denies any nausea vomiting fever sweats chills shortness of breath or chest pain at this time. Objective Exam General Appearance: No Apparent Distress, Chronically ill, Obese HEENT: PERRL/EOMI, Normal ENT Inspection Neck: Full Range of Motion, Non Tender, Supple Respiratory: Chest Non Tender, No Accessory Muscle Use, No Respiratory Distress Cardiovascular: Regular Rate, Rhythm, No JVD Gastrointestinal: non tender, soft, other (Colostomy in LLQ, suprapubic catheter) Extremity: Normal Capillary Refill, Non Tender Neurologic/Psychiatric: Alert, Oriented x3 Skin: Warm/Dry, Other (Patient with perineal and sacral wounds. The perineal wound has some eschar that is grayish in color majority of other wounds have pink healthy appearing tissue.) Lymphatic: No Adenopathy Assessment/Plan Assessment/Plan Assessment/Plan Decubitus ulcers Paraplegia Diabetes mellitus Depression, anxiety Patient with no enzymatic debridement ointment ordered. Will start on Santyl to be applied to any tissue with eschar. If this does not improve will need to have surgical debridement. Continue wound care. Continue medical management Supervisory-Addendum Brief Verification & Attestation Participated in pt care: history, MDM, physical Personally performed: exam, history, MDM, supervision of care Care discussed with: Medical Student Procedures: n/a Results interpretation: Verified all documentation Verification and Attestation of Medical Student E/M Service A medical student performed and documented this service in my presence. I reviewed and verified all information documented by the medical student and made modifications to such information, when appropriate. I personally performed the physical exam and medical decision making. Taras Baird, May 27, 2021,20:[address] [facility] May 27, 2021 06:57 TARAS BAIRD DO May 27, 2021 20:53
[2021-05-27] MEDS: LINEZOLID IVPB 300 ML IV SCH ×2 (08:01→20:19)
[2021-05-27] MEDS: PANTOPRAZOLE 40 MG (PROTONIX) TAB PO SCH (08:15)
[2021-05-27] MEDS: NICOTINE 21 MG (NICODERM) PATCH TD SCH (08:49)
[2021-05-27] MEDS: NICOTINE PATCH REMOVAL TP SCH (08:49)
[2021-05-27] MEDS: MUPIROCIN 2% OINT 22 GM (BACTROBAN) TUBE TOP SCH ×2 (08:50→20:19)
[2021-05-27] MEDS: POVIDONE (BETADINE) 10% SOLN 240 ML BTL TOP SCH (08:50)
[2021-05-27] MEDS: MICONAZOLE 2% POWDER (DESENEX AF) 90 GM TOP SCH ×2 (08:54→20:19)
[2021-05-27] MEDS: PANTOPRAZOLE 40 MG (PROTONIX) VIAL IV SCH (08:54)
[2021-05-27] MEDS: ACETIC ACID 0.25% IR SCH ×2 (08:58→21:01)
[2021-05-27] MEDS: polyethylene glycoL POWDER 17 GM (MIRALAX) PACK PO SCH ×2 (08:58→20:18)
[2021-05-27] MEDS: OXYBUTYNIN (DITROPAN) 5 MG TAB PO SCH (08:58)
[2021-05-27] MEDS: FERROUS SULF 325 MG (IRON) TAB PO SCH (08:58)
[2021-05-27] MEDS: DULoxetine 30 MG (CYMBALTA) CAP PO SCH (08:58)
[2021-05-27] MEDS: cloZAPine 100 MG (CLOZARIL) TAB PO SCH (08:58)
[2021-05-27] MEDS: BACLOFEN 10 MG (LIORESAL) TAB PO SCH ×3 (08:58→20:17)
[2021-05-27] MEDS: BISACODYL 5 MG (DULCOLAX) TABLET PO SCH ×2 (08:58→20:18)
[2021-05-27] MEDS: DOCUSATE SODIUM 100 MG (COLACE) CAP PO SCH ×2 (08:58→20:17)
[2021-05-27] MEDS: MULTIVIT W/MINERALS TAB (THERAGRAN M) PO SCH (08:59)
[2021-05-27] MEDS: VITAMIN D3 25 MCG (1,000 UNITS) TABLET PO SCH (08:59)
[2021-05-27] MEDS: ASCORBIC ACID (VIT C) 500 MG TABLET PO SCH ×2 (08:59→21:05)
[2021-05-27] MEDS: GABAPENTIN 300 MG (NEURONTIN) CAP PO SCH ×3 (08:59→20:17)
[2021-05-27] MEDS: SENNA W/DOCUSATE (SENOKOT S) TABLET PO SCH ×2 (08:59→20:17)
[2021-05-27] MEDS ORDERED: NON-FORMULARY MEDICATION 1 EA EA (Vortioxetine Hydrobromide (Trintellix) 20 MG) PO SCH (09:00)
[2021-05-27] MEDS ORDERED: DULoxetine 30 MG (CYMBALTA) CAP PO SCH (09:00)
[2021-05-27 09:20] VITALS: BP 94/60
[2021-05-27 09:45] VITALS: BP 115/86
[2021-05-27 11:39] VITALS: BP 132/88
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
[2021-05-27] MEDS: NS IV 1000 ML 1,000 ML IV SCH (13:26)
[2021-05-27] MEDS: morphine INJ 4 MG/ML 1 ML (VIAL/SYRINGE) IV PRN ×3 (13:26→21:42)
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
[2021-05-27] MEDS: hydrOXYzine (VISTARIL/ATARAX) 25 MG capsule/tablet PO PRN (15:33)
[2021-05-27] MEDS: NOREPINEPHRINE 8 MG/250 ML 250 ML IV SCH (19:31)
[2021-05-27] MEDS: TOLTERODINE LA 4 MG (DETROL) CAP PO SCH (20:16)
[2021-05-27] MEDS: ENOXAPARIN 40 MG/0.4 ML (LOVENOX) SYR SC SCH (20:17)
[2021-05-27] MEDS: COLLAGENASE 30 GM (SANTYL) TUBE TP SCH (20:19)
[2021-05-27] MEDS: ALPRAZolam 0.25 MG (XANAX) TAB PO PRN (20:20)
[2021-05-27] MEDS: cloZAPine 25 MG (CLOZARIL) TAB PO SCH (21:03)
[2021-05-28] MEDS: MEROPENEM 1,000 MG in NS (IVPB) 100 ML IV SCH ×3 (03:42→20:51)
[2021-05-28] MEDS: NS IV 1000 ML 1,000 ML IV SCH ×2 (03:43→21:57)
[2021-05-28 05:39] LABS: BASOPHILS % (AUTO) 0 % (0-10); EOSINOPHILS # (AUTO) 0.2 10^3/uL (0.0-0.3); EOSINOPHILS % (AUTO) 2 % (0-10); HEMATOCRIT 27 % (40-54); LYMPHOCYTES # (AUTO) 1.2 10^3/uL (1.0-4.0); LYMPHOCYTES % (AUTO) 13 % (12-44); MEAN CORPUSCULAR HEMOGLOBIN 24 pg (25-34); MEAN CORPUSCULAR HGB CONC 29 g/dL (32-36); MEAN CORPUSCULAR VOLUME 80 fL (80-99); MEAN PLATELET VOLUME 8.9 fL (9.0-12.2); MONOCYTES # (AUTO) 0.7 10^3/uL (0.0-1.0); MONOCYTES % (AUTO) 7 % (0-12); NEUTROPHILS # (AUTO) 6.8 10^3/uL (1.8-7.8); NEUTROPHILS % (AUTO) 73 % (42-75); PLATELET COUNT 258 10^3/uL (130-400); WHITE BLOOD COUNT 9.4 10^3/uL (4.3-11.0)
[2021-05-28] MEDS: meTOprolol TARTRATE 25 MG (LOPRESSOR) TABLET PO SCH ×2 (05:45→18:14)
[2021-05-28] MEDS: risperiDONE 1 MG (RisperDAL) TAB PO SCH ×2 (05:45→18:31)
[2021-05-28] MEDS: MAGNESIUM 1 GM/100 ML IVPB 100 ML IV SCH (06:24)
[2021-05-28] MEDS: POTASSIUM CL 10MEQ/50ML IVPB 50 ML IV SCH (06:24)
[2021-05-28] MEDS: KCL 20 MEQ TAB (K-DUR) PO SCH (06:25)
[2021-05-28 06:58] LABS: ALBUMIN 2.4 GM/DL (3.2-4.5); POTASSIUM 3.6 MMOL/L (3.6-5.0)
[2021-05-28 07:00] LABS: CALCIUM 8.6 MG/DL (8.5-10.1)
[2021-05-28 07:01] LABS: TOTAL PROTEIN 6.6 GM/DL (6.4-8.2)
[2021-05-28 07:02] LABS: BILIRUBIN,TOTAL 0.4 MG/DL (0.1-1.0)
[2021-05-28 07:04] LABS: CREATININE SERUM 0.43 MG/DL (0.60-1.30); PHOSPHORUS 3.9 MG/DL (2.3-4.7)
[2021-05-28 07:07] LABS: MAGNESIUM 1.7 MG/DL (1.6-2.4)
--- NOTE | 2021-05-28 07:57 | Progress Note - Surgery ---
[facility] 05/28/21 0757: Subjective Date Seen by a Provider: May 28, 2021 Time Seen by a Provider: 07:10 Subjective/Events-last exam WBC at 9.4 Culture of ulcer grew 5 organisms Pseudomonas aeruginosa, Staphylococcus aureus, probable Enterococcus species Patient asleep during encounter except when replying to some questions Did not report any pain, fevers, or chills Review of Systems General: No Chills, No Other (fevers) Focused Exam Lactate Level 05/25/21 18:50: Lactic Acid Level 0.82 Objective Exam Vital Signs Date Time Temp Pulse Resp B/P (MAP) Pulse Ox O2 Delivery O2 Flow Rate FiO2 05/28/21 06:00 112 14 97/58 100 Nasal Cannula 5.00 05/28/21 05:00 111 13 104/54 100 Nasal Cannula 5.00 05/28/21 04:00 Nasal Cannula 5.00 05/28/21 04:00 37.0 Nasal Cannula 5.00 05/28/21 04:00 112 13 96/57 100 Nasal Cannula 5.00 05/28/21 03:00 109 12 107/60 100 Nasal Cannula 5.00 05/28/21 02:00 109 12 99/58 97 Nasal Cannula 5.00 05/28/21 01:00 107 13 97/55 96 Nasal Cannula 5.00 05/28/21 01:00 107 05/28/21 00:00 115 12 103/68 98 Nasal Cannula 5.00 05/27/21 23:41 Nasal Cannula 5.00 05/27/21 23:40 36.2 Nasal Cannula 5.00 05/27/21 23:00 114 13 99/62 96 Nasal Cannula 5.00 05/27/21 22:00 112 19 112/62 96 Nasal Cannula 5.00 05/27/21 21:00 114 16 114/80 96 Nasal Cannula 5.00 05/27/21 20:00 37.4 05/27/21 20:00 114 18 112/54 97 Nasal Cannula 5.00 05/27/21 20:00 Nasal Cannula 5.00 05/27/21 19:35 Room Air 5.00 05/27/21 19:00 117 05/27/21 19:00 118 22 122/75 94 Nasal Cannula 5.00 05/27/21 18:00 107 22 98/70 95 Nasal Cannula 5.00 05/27/21 17:00 115 14 104/61 96 Nasal Cannula 5.00 05/27/21 16:00 36.8 05/27/21 16:00 121 24 113/67 95 Nasal Cannula 5.00 05/27/21 15:39 Nasal Cannula 5.00 05/27/21 15:00 123 18 111/64 96 Nasal Cannula 5.00 05/27/21 14:00 125 17 112/68 96 Nasal Cannula 5.00 05/27/21 13:39 37.2 05/27/21 13:00 121 16 127/80 92 Nasal Cannula 5.00 05/27/21 12:52 117 05/27/21 12:00 120 37 121/69 92 Nasal Cannula 5.00 05/27/21 12:00 Nasal Cannula 5.00 05/27/21 11:39 35.8 117 14 132/88 91 Nasal Cannula 5.00 05/27/21 11:00 112 28 112/88 96 Nasal Cannula 5.00 05/27/21 10:00 106 18 110/73 99 Nasal Cannula 5.00 05/27/21 09:45 36.5 103 20 115/86 100 Nasal Cannula 5.00 05/27/21 09:20 35.9 103 14 94/60 99 Nasal Cannula 5.00 05/27/21 09:00 104 15 96/63 99 Nasal Cannula 5.00 05/27/21 08:13 36.4 05/27/21 08:00 Nasal Cannula 5.00 05/27/21 08:00 109 18 85/49 95 Nasal Cannula 5.00 I & O 05/28/21 07:00 Intake Total 3550 ml Output Total 1600 ml Balance 1950 ml Capillary Refill : Less Than 3 Seconds General Appearance: WD/WN, Anxious, Chronically ill, Obese HEENT: Normal ENT Inspection, Other (No gross deformities) Neck: Non Tender, Supple Respiratory: No Accessory Muscle Use, No Respiratory Distress, Decreased Breath Sounds Cardiovascular: Tachycardia, Other (Regular Rhythm) Peripheral Pulses: 2+ Radial Pulses (R), 2+ Radial Pulses (L) Gastrointestinal: non tender, soft, other (Colostomy in LLQ, suprapubic catheter) Extremity: Normal Capillary Refill, Non Tender Neurologic/Psychiatric: Alert, Other (Responsive to questions) Skin: Warm/Dry, Other (Patient with perineal and sacral wounds. The perineal wound has some eschar that is grayish in color majority of other wounds have pink healthy appearing tissue.) Lymphatic: No Adenopathy Results Lab Laboratory Tests 05/27/21 10:28: Glucometer 102 05/27/21 16:24: Glucometer 102 05/27/21 21:23: Glucometer 108 05/28/21 05:33: White Blood Count 9.4, Red Blood Count 3.41L, Hemoglobin 8.0L, Hematocrit 27L, Mean Corpuscular Volume 80, Mean Corpuscular Hemoglobin 24L, Mean Corpuscular Hemoglobin Concent 29L, Red Cell Distribution Width 21.9H, Platelet Count 258, Mean Platelet Volume 8.9L, Immature Granulocyte % (Auto) 4, Neutrophils (%) (Auto) 73, Lymphocytes (%) (Auto) 13, Monocytes (%) (Auto) 7, Eosinophils (%) (Auto) 2, Basophils (%) (Auto) 0, Neutrophils # (Auto) 6.8, Lymphocytes # (Auto) 1.2, Monocytes # (Auto) 0.7, Eosinophils # (Auto) 0.2, Basophils # (Auto) 0.0, Immature Granulocyte # (Auto) 0.4H, Sodium Level 142, Potassium Level 3.6, Chloride Level 99, Carbon Dioxide Level 35H, Anion Gap 8, Blood Urea Nitrogen 6L , Creatinine 0.43L, Estimat Glomerular Filtration Rate 220, BUN/Creatinine Ratio 14, Glucose Level 118H, Calcium Level 8.6, Corrected Calcium 9.9, Phosphorus Level 3.9, Magnesium Level 1.7, Total Bilirubin 0.4, Aspartate Amino Transf (AST/SGOT) 25, Alanine Aminotransferase (ALT/SGPT) 33, Alkaline Phosphatase 123, Total Protein 6.6, Albumin 2.4L 05/28/21 06:22: Glucometer 122H Microbiology 05/27/21 Catheter Tip Culture - Preliminary, Resulted 05/25/21 Urine Culture - Preliminary, Resulted Yeast species Enterococcus faecium 05/24/21 Gram Stain - Final, Resulted 05/24/21 Wound Culture - Preliminary, Resulted Gram Negative David Pseudomonas aeruginosa Staphylococcus aureus Probable Enterococcus Species Testing In Progress Assessment/Plan Assessment/Plan Assessment/Plan Decubitus ulcers Paraplegia Diabetes mellitus Depression, anxiety Patient with no enzymatic debridement ointment ordered. Will start on Santyl to be applied to any tissue with eschar. If this does not improve will need to have surgical debridement. Continue wound care. Continue medical management ENSURE supplements for healing Possibly Hold OAC Continue patient positioning per protocol TARAS BAIRD DO 05/28/21 1052: Subjective Subjective/Events-last exam Patient no complaints. Tolerating diet. + colostomy output. Suprapubic rowland leaking. Wounds no change. Denies n/v fever sweats chills shortness of breath or chest pain at this time. Objective Exam General Appearance: No Apparent Distress, Chronically ill, Obese HEENT: Normal ENT Inspection, Other (No gross deformities) Neck: Non Tender, Supple Respiratory: Chest Non Tender, No Accessory Muscle Use, No Respiratory Distress Cardiovascular: Tachycardia, Other (Regular Rhythm) Gastrointestinal: non tender, soft, other (Colostomy in LLQ, suprapubic catheter with some leaking around tube.) Extremity: Normal Capillary Refill, Non Tender Neurologic/Psychiatric: Alert, Normal Mood/Affect, Other (Responsive to questions) Skin: Warm/Dry, Other (Patient with perineal and sacral wounds. The perineal wound has some eschar that is grayish in color majority of other wounds have pink healthy appearing tissue.) Lymphatic: No Adenopathy Assessment/Plan Assessment/Plan Assessment/Plan Decubitus ulcers Paraplegia Diabetes mellitus Depression, anxiety Wound dressings changed at bedside. Santyl to be applied to any tissue with eschar for debridement. If this does not improve will need to have surgical debridement, on anticoagulation will hold if going to or. Continue wound care. Continue medical management Wound consider changing diet to supreme court justice recommendations. Supervisory-Addendum Brief Verification & Attestation Participated in pt care: history, MDM, physical Personally performed: exam, history, MDM, supervision of care Care discussed with: Medical Student Procedures: n/a Results interpretation: Verified all documentation Verification and Attestation of Medical Student E/M Service A medical student performed and documented this service in my presence. I reviewed and verified all information documented by the medical student and made modifications to such information, when appropriate. I personally performed the physical exam and medical decision making. Taras Baird, May 28, 2021,10:58 [facility] May 28, 2021 07:57 TARAS BAIRD DO May 28, 2021 10:52
[2021-05-28] MEDS: LINEZOLID IVPB 300 ML IV SCH ×2 (08:42→21:59)
[2021-05-28] MEDS: DOCUSATE SODIUM 100 MG (COLACE) CAP PO SCH ×2 (08:42→21:58)
[2021-05-28] MEDS: polyethylene glycoL POWDER 17 GM (MIRALAX) PACK PO SCH ×2 (08:42→21:59)
[2021-05-28] MEDS: NICOTINE 21 MG (NICODERM) PATCH TD SCH (08:42)
[2021-05-28] MEDS: hydrOXYzine (VISTARIL/ATARAX) 25 MG capsule/tablet PO PRN (08:43)
[2021-05-28] MEDS: DULoxetine 30 MG (CYMBALTA) CAP PO SCH (08:43)
[2021-05-28] MEDS: SENNA W/DOCUSATE (SENOKOT S) TABLET PO SCH ×2 (08:43→21:59)
[2021-05-28] MEDS: FERROUS SULF 325 MG (IRON) TAB PO SCH (08:43)
[2021-05-28] MEDS: BISACODYL 5 MG (DULCOLAX) TABLET PO SCH ×2 (08:43→21:59)
[2021-05-28] MEDS: GABAPENTIN 300 MG (NEURONTIN) CAP PO SCH ×3 (08:44→21:58)
[2021-05-28] MEDS: BACLOFEN 10 MG (LIORESAL) TAB PO SCH ×3 (08:44→21:59)
[2021-05-28] MEDS: PANTOPRAZOLE 40 MG (PROTONIX) TAB PO SCH (08:44)
[2021-05-28] MEDS: ASCORBIC ACID (VIT C) 500 MG TABLET PO SCH ×2 (08:44→21:58)
[2021-05-28] MEDS: OXYBUTYNIN (DITROPAN) 5 MG TAB PO SCH (08:44)
[2021-05-28] MEDS: MULTIVIT W/MINERALS TAB (THERAGRAN M) PO SCH (08:44)
[2021-05-28] MEDS: PANTOPRAZOLE 40 MG (PROTONIX) VIAL IV SCH (08:45)
[2021-05-28] MEDS: NICOTINE PATCH REMOVAL TP SCH (08:45)
[2021-05-28] MEDS: ACETIC ACID 0.25% IR SCH ×2 (08:46→21:23)
[2021-05-28] MEDS: MICONAZOLE 2% POWDER (DESENEX AF) 90 GM TOP SCH ×2 (08:46→21:59)
[2021-05-28] MEDS: VITAMIN D3 25 MCG (1,000 UNITS) TABLET PO SCH (08:46)
[2021-05-28] MEDS: COLLAGENASE 30 GM (SANTYL) TUBE TP SCH ×2 (08:46→21:59)
[2021-05-28] MEDS: MUPIROCIN 2% OINT 22 GM (BACTROBAN) TUBE TOP SCH ×2 (08:46→21:59)
[2021-05-28] MEDS: POVIDONE (BETADINE) 10% SOLN 240 ML BTL TOP SCH (08:47)
[2021-05-28] MEDS: HYPOCHLOROUS ACID/NaCl (VASHE) 250 ML IR PRN (08:47)
[2021-05-28] MEDS: cloZAPine 100 MG (CLOZARIL) TAB PO SCH (08:48)
[2021-05-28] MEDS ORDERED: PATCH REMOVAL TP SCH (09:00)
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
[2021-05-28] MEDS: morphine INJ 4 MG/ML 1 ML (VIAL/SYRINGE) IV PRN (13:14)
[2021-05-28] MEDS: NOREPINEPHRINE 8 MG/250 ML 250 ML IV SCH (13:16)
[2021-05-28] MEDS: ENOXAPARIN 40 MG/0.4 ML (LOVENOX) SYR SC SCH (20:51)
[2021-05-28] MEDS: TOLTERODINE LA 4 MG (DETROL) CAP PO SCH (21:58)
[2021-05-28] MEDS: cloZAPine 25 MG (CLOZARIL) TAB PO SCH (21:59)
[2021-05-29] MEDS: MEROPENEM 1,000 MG in NS (IVPB) 100 ML IV SCH ×2 (05:47→13:12)
[2021-05-29] MEDS: meTOprolol TARTRATE 25 MG (LOPRESSOR) TABLET PO SCH ×2 (05:47→17:26)
[2021-05-29] MEDS: risperiDONE 1 MG (RisperDAL) TAB PO SCH ×2 (05:47→17:26)
[2021-05-29 06:09] LABS: BASOPHILS # (AUTO) 0.1 10^3/uL (0.0-0.1); BASOPHILS % (AUTO) 1 % (0-10); EOSINOPHILS # (AUTO) 0.3 10^3/uL (0.0-0.3); EOSINOPHILS % (AUTO) 3 % (0-10); HEMATOCRIT 29 % (40-54); HEMOGLOBIN 8.5 g/dL (13.3-17.7); LYMPHOCYTES # (AUTO) 1.6 10^3/uL (1.0-4.0); LYMPHOCYTES % (AUTO) 16 % (12-44); MEAN CORPUSCULAR HEMOGLOBIN 23 pg (25-34); MEAN CORPUSCULAR HGB CONC 29 g/dL (32-36); MEAN CORPUSCULAR VOLUME 80 fL (80-99); MEAN PLATELET VOLUME 8.8 fL (9.0-12.2); MONOCYTES # (AUTO) 0.7 10^3/uL (0.0-1.0); MONOCYTES % (AUTO) 7 % (0-12); NEUTROPHILS # (AUTO) 6.7 10^3/uL (1.8-7.8); NEUTROPHILS % (AUTO) 69 % (42-75); PLATELET COUNT 318 10^3/uL (130-400); WHITE BLOOD COUNT 9.6 10^3/uL (4.3-11.0)
[2021-05-29 06:29] LABS: ALBUMIN 2.5 GM/DL (3.2-4.5)
[2021-05-29 06:30] LABS: CALCIUM 8.9 MG/DL (8.5-10.1)
[2021-05-29] MEDS: KCL 20 MEQ TAB (K-DUR) PO SCH (06:32)
[2021-05-29] MEDS: POTASSIUM CL 10MEQ/50ML IVPB 50 ML IV SCH (06:32)
[2021-05-29 06:33] LABS: BILIRUBIN,TOTAL 0.4 MG/DL (0.1-1.0)
[2021-05-29 06:34] LABS: PHOSPHORUS 3.2 MG/DL (2.3-4.7)
[2021-05-29 06:35] LABS: CREATININE SERUM 0.45 MG/DL (0.60-1.30)
[2021-05-29 06:37] LABS: MAGNESIUM 1.8 MG/DL (1.6-2.4)
--- NOTE | 2021-05-29 06:42 | Progress Note - Surgery ---
[facility] 05/29/21 0642: Subjective Date Seen by a Provider: May 29, 2021 Time Seen by a Provider: 07:30 Subjective/Events-last exam Patient is much more alert this morning. Responding to questions appropriately. States he has minimal pain in the sacrum region. Describes it more as a pressure feeling. Continues to be tachycardic, WBC is stable at 9.6 Review of Systems General: No Chills, No Other (fevers) Gastrointestinal: No: Nausea, Vomiting Objective Exam Vital Signs Date Time Temp Pulse Resp B/P (MAP) Pulse Ox O2 Delivery O2 Flow Rate FiO2 05/29/21 04:13 36.0 111 22 112/60 97 Nasal Cannula 5.00 05/29/21 02:57 Nasal Cannula 5.00 05/29/21 00:58 36.2 105 20 104/74 97 Nasal Cannula 5.00 05/28/21 23:00 Nasal Cannula 5.00 05/28/21 22:07 98/62 05/28/21 20:30 36.4 99 18 86/58 97 Nasal Cannula 5.00 05/28/21 20:00 Nasal Cannula 5.00 05/28/21 17:00 Nasal Cannula 5.00 05/28/21 16:58 36.1 103 18 102/61 97 Nasal Cannula 5.00 05/28/21 16:02 36.0 05/28/21 13:16 110 95/51 05/28/21 13:00 110 05/28/21 12:05 Room Air 05/28/21 12:00 108 21 97 Nasal Cannula 5.00 05/28/21 11:00 101 13 95/51 98 Nasal Cannula 5.00 05/28/21 10:00 104 14 95/54 98 Nasal Cannula 5.00 05/28/21 09:00 104 13 88/56 99 Nasal Cannula 5.00 05/28/21 08:26 Nasal Cannula 5.00 05/28/21 08:00 109 13 85/47 99 Nasal Cannula 5.00 05/28/21 07:46 36.2 05/28/21 07:00 109 05/28/21 07:00 110 16 85/61 100 Nasal Cannula 5.00 I & O 05/29/21 07:00 Intake Total 1060 ml Output Total 2025 ml Balance -965 ml Capillary Refill : Less Than 3 Seconds General Appearance: No Apparent Distress, Chronically ill, Obese HEENT: PERRL/EOMI, Normal ENT Inspection, Other (No gross deformities) Neck: Non Tender, Supple Respiratory: Chest Non Tender, No Accessory Muscle Use, No Respiratory Distress Cardiovascular: Tachycardia, Other (Regular Rhythm) Peripheral Pulses: 2+ Radial Pulses (R), 2+ Radial Pulses (L) Gastrointestinal: non tender, soft, other (Colostomy in LLQ, suprapubic catheter) Extremity: Normal Capillary Refill, Non Tender Neurologic/Psychiatric: Alert, Oriented x3, Other (Responsive to questions) Skin: Warm/Dry, Other (Patient with perineal and sacral wounds. The perineal wound has some eschar that is grayish in color majority of other wounds have pink healthy appearing tissue.) Lymphatic: No Adenopathy Results Lab Laboratory Tests 05/28/21 11:52: Glucometer 93 05/28/21 17:24: Glucometer 77 05/28/21 21:12: Glucometer 99 05/29/21 05:50: White Blood Count 9.6, Red Blood Count 3.66L, Hemoglobin 8.5L, Hematocrit 29L, Mean Corpuscular Volume 80, Mean Corpuscular Hemoglobin 23L, Mean Corpuscular Hemoglobin Concent 29L, Red Cell Distribution Width 21.9H, Platelet Count 318, Mean Platelet Volume 8.8L, Immature Granulocyte % (Auto) 4, Neutrophils (%) (Auto) 69, Lymphocytes (%) (Auto) 16, Monocytes (%) (Auto) 7, Eosinophils (%) (Auto) 3, Basophils (%) (Auto) 1, Neutrophils # (Auto) 6.7, Lymphocytes # (Auto) 1.6, Monocytes # (Auto) 0.7, Eosinophils # (Auto) 0.3, Basophils # (Auto) 0.1, Immature Granulocyte # (Auto) 0.4H, Sodium Level 138, Potassium Level 4.0, Chloride Level 96L, Anion Gap 7, Blood Urea Nitrogen 5L, Creatinine 0.45L, Estimat Glomerular Filtration Rate 209, BUN/Creatinine Ratio 11, Glucose Level 107H, Calcium Level 8.9, Corrected Calcium 10.1, Phosphorus Level 3.2, Magnesium Level 1.8, Total Bilirubin 0.4, Aspartate Amino Transf (AST/SGOT) 22, Alanine Aminotransferase (ALT/SGPT) 23, Alkaline Phosphatase 112, Total Protein 7.0, Albumin 2.5L Microbiology 05/27/21 Catheter Tip Culture - Preliminary, Resulted No growth 05/25/21 Urine Culture - Preliminary, Resulted YEAST Enterococcus faecium 05/24/21 Gram Stain - Final, Resulted 05/24/21 Wound Culture - Preliminary, Resulted Mixed Bacterial Hali Pseudomonas aeruginosa Staphylococcus aureus Probable Enterococcus Species Assessment/Plan Assessment/Plan Assessment/Plan Decubitus ulcers Paraplegia Diabetes mellitus Depression, anxiety Santyl to be applied to any tissue with eschar for debridement. If this does not improve will need to have surgical debridement, on anticoagulation will hold if going to or. Continue wound care. Continue medical management Nutrient supplementation per finish filer recommendations. MICHAEL BAIRD DO 05/29/21 1132: Subjective Subjective/Events-last exam Discomfort in sacral region. Minimal. Still with leaking suprapubic catheter, better managed with purewick. Tachycardic. denies n/v fever sweats chills shortness of breath or chest pain. Objective Exam General Appearance: No Apparent Distress, Chronically ill HEENT: PERRL/EOMI, Normal ENT Inspection Neck: Non Tender, Supple Respiratory: Chest Non Tender, No Accessory Muscle Use, No Respiratory Distress Cardiovascular: No JVD, Tachycardia Gastrointestinal: non tender, soft, other (Colostomy in LLQ, suprapubic catheter) Extremity: Normal Capillary Refill, Non Tender, Other (foot skin changes b/l) Neurologic/Psychiatric: Alert, Oriented x3, Other (Responsive to questions) Skin: Warm/Dry, Other (Patient with perineal and sacral wounds. The perineal wound has some eschar that is grayish in color majority of other wounds have pink healthy appearing tissue.) Lymphatic: No Adenopathy Assessment/Plan Assessment/Plan Assessment/Plan Decubitus ulcers Paraplegia Diabetes mellitus Depression, anxiety Santyl to be applied to any tissue with eschar for debridement. If this does not improve will need to have surgical debridement, on anticoagulation will hold if going to or. Continue wound care. Continue medical management Nutrient supplementation per finish filer recommendations. Dressings changed. Supervisory-Addendum Brief Verification & Attestation Participated in pt care: history, MDM, physical Personally performed: exam, history, MDM, supervision of care Care discussed with: Medical Student Procedures: n/a Results interpretation: Verified all documentation Verification and Attestation of Medical Student E/M Service A medical student performed and documented this service in my presence. I reviewed and verified all information documented by the medical student and made modifications to such information, when appropriate. I personally performed the physical exam and medical decision making. Michael Baird, May 29, 2021,11:32 [facility] May 29, 2021 06:42 MICHAEL BAIRD DO May 29, 2021 11:32
[2021-05-29] MEDS: MAGNESIUM 1 GM/100 ML IVPB 100 ML IV SCH (06:50)
[2021-05-29] MEDS: NICOTINE 21 MG (NICODERM) PATCH TD SCH (07:02)
[2021-05-29] MEDS: morphine INJ 4 MG/ML 1 ML (VIAL/SYRINGE) IV PRN ×4 (07:02→20:13)
[2021-05-29] MEDS: NICOTINE PATCH REMOVAL TP SCH (07:03)
[2021-05-29] MEDS: BISACODYL 5 MG (DULCOLAX) TABLET PO SCH ×2 (09:42→20:12)
[2021-05-29] MEDS: SENNA W/DOCUSATE (SENOKOT S) TABLET PO SCH ×2 (09:43→20:12)
[2021-05-29] MEDS: VITAMIN D3 25 MCG (1,000 UNITS) TABLET PO SCH (09:43)
[2021-05-29] MEDS: DOCUSATE SODIUM 100 MG (COLACE) CAP PO SCH ×2 (09:43→20:12)
[2021-05-29] MEDS: MULTIVIT W/MINERALS TAB (THERAGRAN M) PO SCH (09:44)
[2021-05-29] MEDS: ASCORBIC ACID (VIT C) 500 MG TABLET PO SCH ×2 (09:44→20:12)
[2021-05-29] MEDS: FERROUS SULF 325 MG (IRON) TAB PO SCH (09:44)
[2021-05-29] MEDS: PANTOPRAZOLE 40 MG (PROTONIX) TAB PO SCH (09:44)
[2021-05-29] MEDS: DULoxetine 30 MG (CYMBALTA) CAP PO SCH (09:44)
[2021-05-29] MEDS: OXYBUTYNIN (DITROPAN) 5 MG TAB PO SCH (09:44)
[2021-05-29] MEDS: GABAPENTIN 300 MG (NEURONTIN) CAP PO SCH ×3 (09:47→20:12)
[2021-05-29] MEDS: BACLOFEN 10 MG (LIORESAL) TAB PO SCH ×3 (09:47→20:12)
[2021-05-29] MEDS: cloZAPine 100 MG (CLOZARIL) TAB PO SCH (09:47)
[2021-05-29] MEDS: polyethylene glycoL POWDER 17 GM (MIRALAX) PACK PO SCH ×2 (09:47→20:13)
[2021-05-29] MEDS: LINEZOLID IVPB 300 ML IV SCH (09:48)
[2021-05-29] MEDS: ACETIC ACID 0.25% IR SCH ×2 (09:48→21:19)
[2021-05-29] MEDS: PANTOPRAZOLE 40 MG (PROTONIX) VIAL IV SCH (09:48)
[2021-05-29] MEDS: MUPIROCIN 2% OINT 22 GM (BACTROBAN) TUBE TOP SCH ×2 (09:49→21:43)
[2021-05-29] MEDS: MICONAZOLE 2% POWDER (DESENEX AF) 90 GM TOP SCH ×2 (09:50→21:44)
[2021-05-29] MEDS: POVIDONE (BETADINE) 10% SOLN 240 ML BTL TOP SCH (09:50)
[2021-05-29] MEDS: COLLAGENASE 30 GM (SANTYL) TUBE TP SCH ×2 (09:51→21:44)
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
[2021-05-29] MEDS: hydrOXYzine (VISTARIL/ATARAX) 25 MG capsule/tablet PO PRN (12:44)
[2021-05-29] MEDS: NOREPINEPHRINE 8 MG/250 ML 250 ML IV SCH (12:50)
[2021-05-29] MEDS: ENOXAPARIN 40 MG/0.4 ML (LOVENOX) SYR SC SCH (20:12)
[2021-05-29] MEDS: TOLTERODINE LA 4 MG (DETROL) CAP PO SCH (20:12)
[2021-05-29] MEDS: cloZAPine 25 MG (CLOZARIL) TAB PO SCH (21:47)
[2021-05-30] MEDS: morphine INJ 4 MG/ML 1 ML (VIAL/SYRINGE) IV PRN ×4 (03:36→22:19)
[2021-05-30 05:45] LABS: BASOPHILS % (AUTO) 0 % (0-10); EOSINOPHILS # (AUTO) 0.3 10^3/uL (0.0-0.3); EOSINOPHILS % (AUTO) 3 % (0-10); HEMATOCRIT 30 % (40-54); HEMOGLOBIN 8.8 g/dL (13.3-17.7); LYMPHOCYTES # (AUTO) 1.5 10^3/uL (1.0-4.0); LYMPHOCYTES % (AUTO) 13 % (12-44); MEAN CORPUSCULAR HEMOGLOBIN 24 pg (25-34); MEAN CORPUSCULAR HGB CONC 29 g/dL (32-36); MEAN CORPUSCULAR VOLUME 81 fL (80-99); MEAN PLATELET VOLUME 8.6 fL (9.0-12.2); MONOCYTES # (AUTO) 0.7 10^3/uL (0.0-1.0); MONOCYTES % (AUTO) 6 % (0-12); NEUTROPHILS # (AUTO) 8.3 10^3/uL (1.8-7.8); NEUTROPHILS % (AUTO) 74 % (42-75); PLATELET COUNT 363 10^3/uL (130-400); WHITE BLOOD COUNT 11.3 10^3/uL (4.3-11.0)
[2021-05-30 06:04] LABS: ALBUMIN 2.6 GM/DL (3.2-4.5); POTASSIUM 4.3 MMOL/L (3.6-5.0)
[2021-05-30 06:05] LABS: CALCIUM 9.3 MG/DL (8.5-10.1)
[2021-05-30 06:06] LABS: TOTAL PROTEIN 7.4 GM/DL (6.4-8.2)
[2021-05-30 06:08] LABS: BILIRUBIN,TOTAL 0.3 MG/DL (0.1-1.0)
[2021-05-30 06:10] LABS: CREATININE SERUM 0.46 MG/DL (0.60-1.30); PHOSPHORUS 3.9 MG/DL (2.3-4.7)
[2021-05-30 06:13] LABS: MAGNESIUM 1.8 MG/DL (1.6-2.4)
[2021-05-30] MEDS: KCL 20 MEQ TAB (K-DUR) PO SCH (06:23)
[2021-05-30] MEDS: MAGNESIUM 1 GM/100 ML IVPB 100 ML IV SCH (06:23)
[2021-05-30] MEDS: POTASSIUM CL 10MEQ/50ML IVPB 50 ML IV SCH (06:23)
[2021-05-30] MEDS: risperiDONE 1 MG (RisperDAL) TAB PO SCH ×2 (06:48→15:55)
[2021-05-30] MEDS: meTOprolol TARTRATE 25 MG (LOPRESSOR) TABLET PO SCH ×2 (06:48→15:55)
--- NOTE | 2021-05-30 07:12 | Progress Note - Surgery ---
[facility] 05/30/21 0712: Subjective Date Seen by a Provider: May 30, 2021 Time Seen by a Provider: 07:00 Subjective/Events-last exam Patient is alert and oriented this morning Responding to questions appropriately. Pain is controlled and is compliant with repositioning throughout the day to relieve pressure off the ulcers Continues to be tachycardic, WBC is now 11.3 Review of Systems General: No Chills, No Other (fevers) Pulmonary: No Dyspnea, No Cough Cardiovascular: No: Chest Pain, Palpitations Gastrointestinal: No: Nausea, Vomiting Objective Exam Vital Signs Date Time Temp Pulse Resp B/P (MAP) Pulse Ox O2 Delivery O2 Flow Rate FiO2 05/30/21 03:56 36.6 113 20 128/86 95 Nasal Cannula 3.00 05/29/21 23:59 36.4 107 18 117/72 95 Nasal Cannula 3.00 05/29/21 20:20 Nasal Cannula 5.00 05/29/21 20:00 36.9 117 20 121/64 95 Nasal Cannula 3.00 05/29/21 15:59 36.9 120 18 102/59 96 Nasal Cannula 3.00 05/29/21 15:34 97 Nasal Cannula 4.00 05/29/21 11:06 36.4 108 20 115/64 98 Nasal Cannula 5.00 05/29/21 08:13 36.3 104 20 116/67 98 Nasal Cannula 5.00 05/29/21 08:00 Nasal Cannula 5.00 I & O 05/30/21 07:00 Intake Total 3160 ml Output Total 4325 ml Balance -1165 ml Capillary Refill : Less Than 3 Seconds General Appearance: No Apparent Distress, Chronically ill HEENT: PERRL/EOMI, Normal ENT Inspection Neck: Non Tender, Supple Respiratory: Chest Non Tender, No Accessory Muscle Use, No Respiratory Distress Cardiovascular: No JVD, Tachycardia Peripheral Pulses: 2+ Radial Pulses (R), 2+ Radial Pulses (L) Gastrointestinal: non tender, soft, other (Colostomy in LLQ, suprapubic catheter with purewick taped to the suprapubic region) Extremity: Normal Capillary Refill, Non Tender, Other (foot skin changes b/l) Neurologic/Psychiatric: Alert, Oriented x3, Other (Responsive to questions) Skin: Warm/Dry, Other (Patient with perineal and sacral wounds. The perineal wound has some eschar that is grayish in color majority of other wounds have pink healthy appearing tissue.) Lymphatic: No Adenopathy Results Lab Laboratory Tests 05/29/21 11:01: Glucometer 77 05/29/21 15:57: Glucometer 100 05/29/21 20:09: Glucometer 128H 05/30/21 05:14: Glucometer 133H 05/30/21 05:36: White Blood Count 11.3H, Red Blood Count 3.74L, Hemoglobin 8.8L, Hematocrit 30L, Mean Corpuscular Volume 81, Mean Corpuscular Hemoglobin 24L, Mean Corpuscular Hemoglobin Concent 29L, Red Cell Distribution Width 22.3H, Platelet Count 363, Mean Platelet Volume 8.6L, Immature Granulocyte % (Auto) 4, Neutrophils (%) (Auto) 74, Lymphocytes (%) (Auto) 13, Monocytes (%) (Auto) 6, Eosinophils (%) (Auto) 3, Basophils (%) (Auto) 0, Neutrophils # (Auto) 8.3H, Lymphocytes # (Auto) 1.5, Monocytes # (Auto) 0.7, Eosinophils # (Auto) 0.3, Basophils # (Auto) 0.0, Immature Granulocyte # (Auto) 0.5H, Sodium Level 136, Potassium Level 4.3, Chloride Level 94L, Carbon Dioxide Level 33H, Anion Gap 9, Blood Urea Nitrogen 8, Creatinine 0.46L, Estimat Glomerular Filtration Rate 204, BUN/Creatinine Ratio 17, Glucose Level 122H, Calcium Level 9.3, Corrected Calcium 10.4H, Phosphorus Level 3.9, Magnesium Level 1.8, Total Bilirubin 0.3, Aspartate Amino Transf (AST/SGOT) 18, Alanine Aminotransferase (ALT/SGPT) 16, Alkaline Phosphatase 107, Total Protein 7.4, Albumin 2.6L Microbiology 05/27/21 Catheter Tip Culture - Preliminary, Resulted No growth 05/25/21 Urine Culture - Final, Complete YEAST Enterococcus faecium 05/24/21 Gram Stain - Final, Resulted 05/24/21 Wound Culture - Preliminary, Resulted Mixed Bacterial Hali Pseudomonas aeruginosa Staphylococcus aureus Probable Enterococcus Species Assessment/Plan Assessment/Plan Assessment/Plan Decubitus ulcers Paraplegia Diabetes mellitus Depression, anxiety Santyl to be applied to any tissue with eschar for debridement. If this does not improve will need to have surgical debridement, on anticoagulation will hold if going to or. Continue wound care. Continue medical management Nutrient supplementation per supervising fire marshal recommendations. MICHAEL BAIRD DO 05/30/21 1504: Subjective Subjective/Events-last exam Patient lying in bed. Patient no pain. Patient trying to move to keep pressure off of buttock area. Patient no new complaints. Tolerating wound care. Denies nausea vomiting fever sweats chills shortness of breath or chest pain. W BC 11.3. Objective Exam General Appearance: No Apparent Distress, Chronically ill HEENT: PERRL/EOMI, Normal ENT Inspection Neck: Non Tender, Supple Respiratory: Chest Non Tender, No Accessory Muscle Use, No Respiratory Distress Cardiovascular: No JVD, Tachycardia Gastrointestinal: non tender, soft, other (Colostomy in LLQ, suprapubic catheter with purewick taped to the suprapubic region) Extremity: Normal Capillary Refill, Non Tender, Other (foot skin changes b/l) Neurologic/Psychiatric: Alert, Oriented x3 Skin: Warm/Dry, Other (Patient with perineal and sacral wounds. The perineal wound has some eschar that is grayish in color majority of other wounds have pink healthy appearing tissue.) Lymphatic: No Adenopathy Assessment/Plan Assessment/Plan Assessment/Plan Decubitus ulcers Paraplegia Diabetes mellitus Depression, anxiety Santyl to be applied to any tissue with eschar for debridement. If this does not improve will need to have surgical debridement, on anticoagulation will hold if going to or. Continue wound care. Continue medical management Nutrient supplementation per supervising fire marshal recommendations. Supervisory-Addendum Brief Verification & Attestation Participated in pt care: history, MDM, physical Personally performed: exam, history, MDM, supervision of care Care discussed with: Medical Student Procedures: n/a Results interpretation: Verified all documentation Verification and Attestation of Medical Student E/M Service A medical student performed and documented this service in my presence. I reviewed and verified all information documented by the medical student and made modifications to such information, when appropriate. I personally performed the physical exam and medical decision making. Michael Baird, May 30, 2021,15:04 [facility] May 30, 2021 07:12 MICHAEL BAIRD DO May 30, 2021 15:04
[2021-05-30] MEDS: NICOTINE PATCH REMOVAL TP SCH (08:40)
[2021-05-30] MEDS: polyethylene glycoL POWDER 17 GM (MIRALAX) PACK PO SCH ×2 (08:40→21:33)
[2021-05-30] MEDS: FERROUS SULF 325 MG (IRON) TAB PO SCH (08:41)
[2021-05-30] MEDS: ZINC SULFATE 220 MG CAPSULE PO SCH (08:42)
[2021-05-30] MEDS: DOCUSATE SODIUM 100 MG (COLACE) CAP PO SCH ×2 (08:42→20:14)
[2021-05-30] MEDS: SENNA W/DOCUSATE (SENOKOT S) TABLET PO SCH ×2 (08:42→20:13)
[2021-05-30] MEDS: VITAMIN D3 25 MCG (1,000 UNITS) TABLET PO SCH (08:43)
[2021-05-30] MEDS: ASCORBIC ACID (VIT C) 500 MG TABLET PO SCH ×2 (08:43→20:13)
[2021-05-30] MEDS: MULTIVIT W/MINERALS TAB (THERAGRAN M) PO SCH (08:43)
[2021-05-30] MEDS: GABAPENTIN 300 MG (NEURONTIN) CAP PO SCH ×3 (08:44→20:14)
[2021-05-30] MEDS: PANTOPRAZOLE 40 MG (PROTONIX) TAB PO SCH (08:44)
[2021-05-30] MEDS: NICOTINE 21 MG (NICODERM) PATCH TD SCH (08:45)
[2021-05-30] MEDS: POVIDONE (BETADINE) 10% SOLN 240 ML BTL TOP SCH (08:49)
[2021-05-30] MEDS: MUPIROCIN 2% OINT 22 GM (BACTROBAN) TUBE TOP SCH ×2 (08:51→20:19)
[2021-05-30] MEDS: MICONAZOLE 2% POWDER (DESENEX AF) 90 GM TOP SCH ×2 (08:51→20:19)
[2021-05-30] MEDS: BACLOFEN 10 MG (LIORESAL) TAB PO SCH ×3 (08:54→20:14)
[2021-05-30] MEDS: DULoxetine 30 MG (CYMBALTA) CAP PO SCH (08:54)
[2021-05-30] MEDS: OXYBUTYNIN (DITROPAN) 5 MG TAB PO SCH (08:55)
[2021-05-30] MEDS: cloZAPine 100 MG (CLOZARIL) TAB PO SCH (08:55)
[2021-05-30] MEDS: BISACODYL 5 MG (DULCOLAX) TABLET PO SCH ×2 (09:04→20:14)
--- NOTE | 2021-05-30 09:55 | Progress Note - Urology ---
Progress Note-Urology Progress Notes/Assess & Plan Progress/Assessment & Plan PATIENT SAYS NO LEAK PER URETHRA AND DECREASED AROUND SP TUBE. TOLERATES DETROL LA WELL Final Diagnosis INCONTINENCE BRITNEY TAYLOR MD May 30, 2021 09:55
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
[2021-05-30] MEDS: ACETIC ACID 0.25% IR SCH ×2 (15:02→21:00)
[2021-05-30] MEDS: COLLAGENASE 30 GM (SANTYL) TUBE TP SCH ×2 (15:02→20:18)
[2021-05-30] MEDS ORDERED: VANCOMYCIN INJECTION 0.1 MG in NS (IVPB) 250 ML IV SCH (15:30)
[2021-05-30 16:24] VITALS: BP 109/69
[2021-05-30] MEDS: MEROPENEM 1,000 MG in NS (IVPB) 100 ML IV SCH (17:51)
[2021-05-30] MEDS: hydrOXYzine (VISTARIL/ATARAX) 25 MG capsule/tablet PO PRN (17:54)
[2021-05-30] MEDS: ENOXAPARIN 40 MG/0.4 ML (LOVENOX) SYR SC SCH (20:13)
[2021-05-30] MEDS: ALPRAZolam 0.25 MG (XANAX) TAB PO PRN (20:13)
[2021-05-30] MEDS: TOLTERODINE LA 2 MG (DETROL LA) CAP PO SCH (20:13)
[2021-05-30] MEDS: cloZAPine 25 MG (CLOZARIL) TAB PO SCH (20:18)
[2021-05-30] MEDS ORDERED: CEFEPIME INJECTION 1,000 MG in NS (IVPB) 50 ML IV SCH (21:00)
[2021-05-30] MEDS: LINEZOLID IVPB 300 ML IV SCH (22:45)
[2021-05-31] MEDS: MEROPENEM 1,000 MG in NS (IVPB) 100 ML IV SCH ×3 (01:08→16:47)
[2021-05-31] MEDS: risperiDONE 1 MG (RisperDAL) TAB PO SCH ×2 (05:09→16:47)
[2021-05-31] MEDS: meTOprolol TARTRATE 25 MG (LOPRESSOR) TABLET PO SCH ×2 (05:10→16:47)
[2021-05-31 05:15] LABS: BASOPHILS % (AUTO) 0 % (0-10); EOSINOPHILS # (AUTO) 0.3 10^3/uL (0.0-0.3); EOSINOPHILS % (AUTO) 3 % (0-10); HEMATOCRIT 31 % (40-54); HEMOGLOBIN 9.1 g/dL (13.3-17.7); LYMPHOCYTES # (AUTO) 1.6 10^3/uL (1.0-4.0); LYMPHOCYTES % (AUTO) 15 % (12-44); MEAN CORPUSCULAR HEMOGLOBIN 24 pg (25-34); MEAN CORPUSCULAR HGB CONC 30 g/dL (32-36); MEAN CORPUSCULAR VOLUME 80 fL (80-99); MEAN PLATELET VOLUME 8.7 fL (9.0-12.2); MONOCYTES # (AUTO) 0.7 10^3/uL (0.0-1.0); MONOCYTES % (AUTO) 7 % (0-12); NEUTROPHILS # (AUTO) 7.3 10^3/uL (1.8-7.8); NEUTROPHILS % (AUTO) 71 % (42-75); PLATELET COUNT 385 10^3/uL (130-400); WHITE BLOOD COUNT 10.3 10^3/uL (4.3-11.0)
[2021-05-31 05:28] LABS: ALBUMIN 2.7 GM/DL (3.2-4.5); POTASSIUM 4.2 MMOL/L (3.6-5.0)
[2021-05-31 05:29] LABS: CALCIUM 9.3 MG/DL (8.5-10.1)
[2021-05-31 05:31] LABS: TOTAL PROTEIN 7.9 GM/DL (6.4-8.2)
[2021-05-31 05:32] LABS: BILIRUBIN,TOTAL 0.4 MG/DL (0.1-1.0)
[2021-05-31 05:34] LABS: CREATININE SERUM 0.48 MG/DL (0.60-1.30); PHOSPHORUS 5.1 MG/DL (2.3-4.7)
[2021-05-31 05:37] LABS: MAGNESIUM 1.8 MG/DL (1.6-2.4)
[2021-05-31] MEDS: POTASSIUM CL 10MEQ/50ML IVPB 50 ML IV SCH (05:39)
[2021-05-31] MEDS: KCL 20 MEQ TAB (K-DUR) PO SCH (05:39)
[2021-05-31] MEDS: MAGNESIUM 1 GM/100 ML IVPB 100 ML IV SCH (05:40)
--- NOTE | 2021-05-31 07:24 | Progress Note - Surgery ---
[facility] 05/31/21 0724: Subjective Date Seen by a Provider: May 31, 2021 Time Seen by a Provider: 06:50 Subjective/Events-last exam Patient was asleep this morning. Was resting well. Continues to be tachycardic, WBC is now 10.3 Objective Exam Vital Signs Date Time Temp Pulse Resp B/P (MAP) Pulse Ox O2 Delivery O2 Flow Rate FiO2 05/31/21 04:24 36.2 122 19 116/72 97 Nasal Cannula 3.00 05/31/21 00:00 36.0 112 18 121/59 94 Nasal Cannula 3.00 05/30/21 20:37 37.0 117 18 114/70 95 Nasal Cannula 3.00 05/30/21 20:30 Nasal Cannula 3.00 05/30/21 19:50 98 Nasal Cannula 3.00 05/30/21 16:24 36.0 113 95 32 05/30/21 16:00 35.8 119 18 106/58 99 Nasal Cannula 3.00 05/30/21 15:31 99 Nasal Cannula 3.00 05/30/21 11:20 36.0 99 16 109/69 97 Nasal Cannula 3.00 05/30/21 08:30 35.0 117 20 112/80 97 Nasal Cannula 3.00 05/30/21 08:00 Nasal Cannula 3.00 I & O 05/31/21 07:00 Intake Total 2460 ml Output Total 3050 ml Balance -590 ml Capillary Refill : Less Than 3 Seconds General Appearance: No Apparent Distress, Chronically ill HEENT: Normal ENT Inspection, Other (No gross deformities) Neck: Non Tender, Supple Respiratory: Chest Non Tender, No Accessory Muscle Use, No Respiratory Distress Cardiovascular: No JVD, Tachycardia Peripheral Pulses: 2+ Radial Pulses (R), 2+ Radial Pulses (L) Gastrointestinal: non tender, soft, other (Colostomy in LLQ, suprapubic catheter with purewick taped to the suprapubic region) Extremity: Normal Capillary Refill, Non Tender, Other (foot skin changes b/l) Neurologic/Psychiatric: Alert, Oriented x3 Skin: Warm/Dry, Other (Patient with perineal and sacral wounds. The perineal wound has some eschar that is grayish in color majority of other wounds have pink healthy appearing tissue.) Lymphatic: No Adenopathy Results Lab Laboratory Tests 05/30/21 11:19: Glucometer 102 05/30/21 15:33: Glucometer 98 05/30/21 20:14: Glucometer 114H 05/31/21 05:05: White Blood Count 10.3, Red Blood Count 3.86L, Hemoglobin 9.1L, Hematocrit 31L, Mean Corpuscular Volume 80, Mean Corpuscular Hemoglobin 24L, Mean Corpuscular Hemoglobin Concent 30L, Red Cell Distribution Width 22.5H, Platelet Count 385, Mean Platelet Volume 8.7L, Immature Granulocyte % (Auto) 4, Neutrophils (%) (Auto) 71, Lymphocytes (%) (Auto) 15, Monocytes (%) (Auto) 7, Eosinophils (%) (Auto) 3, Basophils (%) (Auto) 0, Neutrophils # (Auto) 7.3, Lymphocytes # (Auto) 1.6, Monocytes # (Auto) 0.7, Eosinophils # (Auto) 0.3, Basophils # (Auto) 0.0, Immature Granulocyte # (Auto) 0.4H, Sodium Level 136, Potassium Level 4.2, Chloride Level 93L, Carbon Dioxide Level 33H, Anion Gap 10, Blood Urea Nitrogen 9, Creatinine 0.48L, Estimat Glomerular Filtration Rate 194, BUN/Creatinine Ratio 19, Glucose Level 122H, Calcium Level 9.3, Corrected Calcium 10.3H, Phosphorus Level 5.1H, Magnesium Level 1.8, Total Bilirubin 0.4, Aspartate Amino Transf (AST/SGOT) 16, Alanine Aminotransferase (ALT/SGPT) 13, Alkaline Phosphatase 115, Total Protein 7.9, Albumin 2.7L Microbiology 05/27/21 Catheter Tip Culture - Final, Complete No growth 05/25/21 Urine Culture - Final, Complete YEAST Enterococcus faecium 05/24/21 Gram Stain - Final, Resulted 05/24/21 Wound Culture - Preliminary, Resulted Mixed Bacterial Hali Pseudomonas aeruginosa Staphylococcus aureus Probable Enterococcus Species Assessment/Plan Assessment/Plan Assessment/Plan Decubitus ulcers Paraplegia Diabetes mellitus Depression, anxiety Santyl to be applied to any tissue with eschar for debridement. If this does not improve will need to have surgical debridement, on anticoagulation will hold if going to or. Continue wound care. Continue medical management Nutrient supplementation per fitting room maintenance mechanic recommendations. MICHAEL BAIRD DO 05/31/21 5706: Subjective Subjective/Events-last exam No new complaints. Still leaking from suprapubic catheter. Wounds no significant change. Denies n/v fever sweats chills shortness of breath or chest pain. Objective Exam General Appearance: No Apparent Distress, Chronically ill HEENT: Normal ENT Inspection, Other (No gross deformities) Neck: Non Tender, Supple Respiratory: Chest Non Tender, No Accessory Muscle Use, No Respiratory Distress Cardiovascular: No JVD Gastrointestinal: non tender, soft, other (Colostomy in LLQ, suprapubic catheter with purewick taped to the suprapubic region) Extremity: Normal Capillary Refill, Non Tender, Other (foot skin changes b/l) Neurologic/Psychiatric: Alert, Oriented x3 Skin: Warm/Dry, Other (Patient with perineal and sacral wounds. The perineal wound has some eschar that is grayish in color, majority of other wounds have pink healthy appearing tissue.) Lymphatic: No Adenopathy Assessment/Plan Assessment/Plan Assessment/Plan Decubitus ulcers Paraplegia Diabetes mellitus Depression, anxiety Leaking suprapubic catheter Santyl to be applied to any tissue with eschar for debridement. If this does not improve will need to have surgical debridement, on anticoagulation will hold if going to or. Continue wound care. Continue medical management Nutrient supplementation per fitting room maintenance mechanic recommendations. Increase suprapubic catheter balloon to decrease leakage. Supervisory-Addendum Brief Verification & Attestation Participated in pt care: history, MDM, physical Personally performed: exam, history, MDM, supervision of care Care discussed with: Medical Student Procedures: n/a Results interpretation: Verified all documentation Verification and Attestation of Medical Student E/M Service A medical student performed and documented this service in my presence. I reviewed and verified all information documented by the medical student and made modifications to such information, when appropriate. I personally performed the physical exam and medical decision making. Michael Baird, May 31, 2021,17:26 [facility] May 31, 2021 07:24 MICHAEL BAIRD DO May 31, 2021 17:26
[2021-05-31] MEDS ORDERED: VITAMIN D2 1.25 MG (50,000 UNITS) CAP PO SCH (09:00)
[2021-05-31] MEDS: NICOTINE 21 MG (NICODERM) PATCH TD SCH (09:01)
[2021-05-31] MEDS: NICOTINE PATCH REMOVAL TP SCH (09:01)
[2021-05-31] MEDS: TOLTERODINE LA 2 MG (DETROL LA) CAP PO SCH ×2 (09:03→21:11)
[2021-05-31] MEDS: VITAMIN D3 25 MCG (1,000 UNITS) TABLET PO SCH (09:03)
[2021-05-31] MEDS: FERROUS SULF 325 MG (IRON) TAB PO SCH (09:03)
[2021-05-31] MEDS: BACLOFEN 10 MG (LIORESAL) TAB PO SCH ×3 (09:03→21:11)
[2021-05-31] MEDS: MULTIVIT W/MINERALS TAB (THERAGRAN M) PO SCH (09:03)
[2021-05-31] MEDS: DULoxetine 30 MG (CYMBALTA) CAP PO SCH (09:04)
[2021-05-31] MEDS: ASCORBIC ACID (VIT C) 500 MG TABLET PO SCH ×2 (09:04→21:11)
[2021-05-31] MEDS: SENNA W/DOCUSATE (SENOKOT S) TABLET PO SCH ×2 (09:04→21:09)
[2021-05-31] MEDS: DOCUSATE SODIUM 100 MG (COLACE) CAP PO SCH ×2 (09:04→21:11)
[2021-05-31] MEDS: PANTOPRAZOLE 40 MG (PROTONIX) TAB PO SCH (09:04)
[2021-05-31] MEDS: cloZAPine 100 MG (CLOZARIL) TAB PO SCH (09:05)
[2021-05-31] MEDS: GABAPENTIN 300 MG (NEURONTIN) CAP PO SCH ×3 (09:05→21:11)
[2021-05-31] MEDS: OXYBUTYNIN (DITROPAN) 5 MG TAB PO SCH (09:05)
[2021-05-31] MEDS: BISACODYL 5 MG (DULCOLAX) TABLET PO SCH ×2 (09:05→21:10)
[2021-05-31] MEDS: polyethylene glycoL POWDER 17 GM (MIRALAX) PACK PO SCH ×2 (09:08→22:00)
[2021-05-31] MEDS: LINEZOLID IVPB 300 ML IV SCH ×2 (09:48→21:13)
[2021-05-31] MEDS: morphine INJ 4 MG/ML 1 ML (VIAL/SYRINGE) IV PRN ×3 (10:53→21:12)
[2021-05-31] MEDS: HYPOCHLOROUS ACID/NaCl (VASHE) 250 ML IR PRN ×2 (10:56→21:14)
[2021-05-31] MEDS: COLLAGENASE 30 GM (SANTYL) TUBE TP SCH ×2 (10:56→21:13)
[2021-05-31] MEDS: POVIDONE (BETADINE) 10% SOLN 240 ML BTL TOP SCH (10:57)
[2021-05-31] MEDS: MICONAZOLE 2% POWDER (DESENEX AF) 90 GM TOP SCH ×2 (10:57→21:12)
[2021-05-31] MEDS: MUPIROCIN 2% OINT 22 GM (BACTROBAN) TUBE TOP SCH ×2 (10:57→21:12)
[2021-05-31] MEDS: ACETIC ACID 0.25% IR SCH ×2 (12:00→21:30)
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
[2021-05-31] MEDS: ENOXAPARIN 40 MG/0.4 ML (LOVENOX) SYR SC SCH (21:09)
[2021-05-31] MEDS: cloZAPine 25 MG (CLOZARIL) TAB PO SCH (21:10)
[2021-06-01] MEDS: MEROPENEM 1,000 MG in NS (IVPB) 100 ML IV SCH ×3 (00:50→17:54)
[2021-06-01 04:37] LABS: BASOPHILS # (AUTO) 0.1 10^3/uL (0.0-0.1); BASOPHILS % (AUTO) 1 % (0-10); EOSINOPHILS # (AUTO) 0.3 10^3/uL (0.0-0.3); EOSINOPHILS % (AUTO) 2 % (0-10); HEMATOCRIT 29 % (40-54); HEMOGLOBIN 8.6 g/dL (13.3-17.7); LYMPHOCYTES # (AUTO) 1.7 10^3/uL (1.0-4.0); LYMPHOCYTES % (AUTO) 15 % (12-44); MEAN CORPUSCULAR HEMOGLOBIN 23 pg (25-34); MEAN CORPUSCULAR HGB CONC 29 g/dL (32-36); MEAN CORPUSCULAR VOLUME 79 fL (80-99); MEAN PLATELET VOLUME 8.5 fL (9.0-12.2); MONOCYTES # (AUTO) 0.8 10^3/uL (0.0-1.0); MONOCYTES % (AUTO) 7 % (0-12); NEUTROPHILS # (AUTO) 7.8 10^3/uL (1.8-7.8); NEUTROPHILS % (AUTO) 72 % (42-75); PLATELET COUNT 370 10^3/uL (130-400); WHITE BLOOD COUNT 10.8 10^3/uL (4.3-11.0)
[2021-06-01 04:49] LABS: ALBUMIN 2.6 GM/DL (3.2-4.5); POTASSIUM 3.7 MMOL/L (3.6-5.0)
[2021-06-01 04:50] LABS: CALCIUM 9.3 MG/DL (8.5-10.1)
[2021-06-01 04:51] LABS: TOTAL PROTEIN 7.5 GM/DL (6.4-8.2)
[2021-06-01 04:53] LABS: BILIRUBIN,TOTAL 0.3 MG/DL (0.1-1.0)
[2021-06-01 04:55] LABS: CREATININE SERUM 0.47 MG/DL (0.60-1.30)
[2021-06-01 04:58] LABS: MAGNESIUM 1.8 MG/DL (1.6-2.4)
[2021-06-01] MEDS: POTASSIUM CL 10MEQ/50ML IVPB 50 ML IV SCH (05:13)
[2021-06-01] MEDS: MAGNESIUM 1 GM/100 ML IVPB 100 ML IV SCH (05:14)
[2021-06-01] MEDS: KCL 20 MEQ TAB (K-DUR) PO SCH (05:14)
[2021-06-01] MEDS: risperiDONE 1 MG (RisperDAL) TAB PO SCH ×2 (06:13→16:12)
[2021-06-01] MEDS: meTOprolol TARTRATE 25 MG (LOPRESSOR) TABLET PO SCH ×2 (06:13→16:13)
--- NOTE | 2021-06-01 07:26 | Progress Note - Surgery ---
Subjective Date Seen by a Provider: Jun 01, 2021 Time Seen by a Provider: 07:24 Subjective/Events-last exam Patient resting. Still leaking urine from suprapubic catheter. Wounds being changed frequently. No pain. No new complaints. Denies n/v fever sweats chills shortness of breath or chest pain. Objective Exam Vital Signs Date Time Temp Pulse Resp B/P (MAP) Pulse Ox O2 Delivery O2 Flow Rate FiO2 06/01/21 04:20 36.4 118 20 108/55 95 Nasal Cannula 3.00 06/01/21 00:40 36.7 118 20 117/65 94 Nasal Cannula 3.00 05/31/21 21:47 Nasal Cannula 3.00 05/31/21 20:00 36.4 116 18 107/63 95 Nasal Cannula 3.00 05/31/21 20:00 Nasal Cannula 3.00 05/31/21 15:47 36.6 123 20 105/72 95 Nasal Cannula 3.00 05/31/21 11:57 36.2 122 20 111/74 98 Nasal Cannula 3.00 05/31/21 10:15 Nasal Cannula 3.00 05/31/21 08:36 Nasal Cannula 3.00 05/31/21 07:47 36.1 107 20 118/72 96 Nasal Cannula 3.00 I & O 06/01/21 07:00 Intake Total 3460 ml Output Total 1925 ml Balance 1535 ml Capillary Refill : Less Than 3 Seconds General Appearance: No Apparent Distress, Chronically ill HEENT: Normal ENT Inspection, Other (No gross deformities) Neck: Non Tender, Supple Respiratory: Chest Non Tender, No Accessory Muscle Use, No Respiratory Distress Cardiovascular: No JVD Peripheral Pulses: 2+ Radial Pulses (R), 2+ Radial Pulses (L) Gastrointestinal: non tender, soft, other (Colostomy in LLQ, suprapubic catheter with purewick taped to the suprapubic region) Extremity: Normal Capillary Refill, Non Tender, Other (foot skin changes b/l) Neurologic/Psychiatric: Alert, Oriented x3 Skin: Warm/Dry, Other (Patient with perineal and sacral wounds. The perineal wound has some eschar that is grayish in color, majority of other wounds have pink healthy appearing tissue.) Lymphatic: No Adenopathy Results Lab Laboratory Tests 05/31/21 10:56: Glucometer 147H 05/31/21 15:45: Glucometer 101 05/31/21 20:20: Glucometer 111H 06/01/21 04:28: White Blood Count 10.8, Red Blood Count 3.69L, Hemoglobin 8.6L, Hematocrit 29L, Mean Corpuscular Volume 79L, Mean Corpuscular Hemoglobin 23L, Mean Corpuscular Hemoglobin Concent 29L, Red Cell Distribution Width 22.0H, Platelet Count 370, Mean Platelet Volume 8.5L, Immature Granulocyte % (Auto) 3, Neutrophils (%) (Auto) 72, Lymphocytes (%) (Auto) 15, Monocytes (%) (Auto) 7, Eosinophils (%) (Auto) 2, Basophils (%) (Auto) 1, Neutrophils # (Auto) 7.8, Lymphocytes # (Auto) 1.7, Monocytes # (Auto) 0.8, Eosinophils # (Auto) 0.3, Basophils # (Auto) 0.1, Immature Granulocyte # (Auto) 0.3H, Sodium Level 137, Potassium Level 3.7, Chloride Level 95L, Carbon Dioxide Level 32, Anion Gap 10, Blood Urea Nitrogen 11, Creatinine 0.47L, Estimat Glomerular Filtration Rate 199, BUN/Creatinine Ratio 23, Glucose Level 129H, Calcium Level 9.3, Corrected Calcium 10.4H, Phosphorus Level 4.0, Magnesium Level 1.8, Total Bilirubin 0.3, Aspartate Amino Transf (AST/SGOT) 21, Alanine Aminotransferase (ALT/SGPT) 12, Alkaline Phosphatase 94, Total Protein 7.5, Albumin 2.6L Microbiology 05/27/21 Catheter Tip Culture - Final, Complete No growth 05/25/21 Urine Culture - Final, Complete YEAST Enterococcus faecium 05/24/21 Gram Stain - Final, Resulted 05/24/21 Wound Culture - Preliminary, Resulted Mixed Bacterial Hali Pseudomonas aeruginosa Staphylococcus aureus Probable Enterococcus Species Assessment/Plan Assessment/Plan Assessment/Plan Decubitus ulcers Paraplegia Diabetes mellitus Depression, anxiety Leaking suprapubic catheter Santyl to be applied to any tissue with eschar for debridement. If this does not improve will need to have surgical debridement, on anticoagulation will hold if going to or. Continue wound care. Continue medical management Nutrient supplementation per ticket worker recommendations. Increase suprapubic catheter balloon to decrease leakage. Will take balloon down tomorrow to normal if not improving. MICHAEL WILSON DO Jun 01, 2021 07:26
[2021-06-01] MEDS: NICOTINE PATCH REMOVAL TP SCH (08:02)
[2021-06-01] MEDS: ACETIC ACID 0.25% IR SCH ×2 (08:02→19:19)
[2021-06-01] MEDS: NICOTINE 21 MG (NICODERM) PATCH TD SCH (09:55)
[2021-06-01] MEDS: BACLOFEN 10 MG (LIORESAL) TAB PO SCH ×3 (09:55→20:56)
[2021-06-01] MEDS: polyethylene glycoL POWDER 17 GM (MIRALAX) PACK PO SCH ×2 (10:09→20:55)
[2021-06-01] MEDS: DOCUSATE SODIUM 100 MG (COLACE) CAP PO SCH ×2 (10:10→20:57)
[2021-06-01] MEDS: FERROUS SULF 325 MG (IRON) TAB PO SCH (10:10)
[2021-06-01] MEDS: OXYBUTYNIN (DITROPAN) 5 MG TAB PO SCH (10:10)
[2021-06-01] MEDS: cloZAPine 100 MG (CLOZARIL) TAB PO SCH (10:10)
[2021-06-01] MEDS: SENNA W/DOCUSATE (SENOKOT S) TABLET PO SCH ×2 (10:10→20:56)
[2021-06-01] MEDS: TOLTERODINE LA 2 MG (DETROL LA) CAP PO SCH ×2 (10:11→20:56)
[2021-06-01] MEDS: BISACODYL 5 MG (DULCOLAX) TABLET PO SCH ×2 (10:11→20:57)
[2021-06-01] MEDS: ASCORBIC ACID (VIT C) 500 MG TABLET PO SCH ×2 (10:11→20:57)
[2021-06-01] MEDS: PANTOPRAZOLE 40 MG (PROTONIX) TAB PO SCH (10:11)
[2021-06-01] MEDS: MULTIVIT W/MINERALS TAB (THERAGRAN M) PO SCH (10:11)
[2021-06-01] MEDS: VITAMIN D3 25 MCG (1,000 UNITS) TABLET PO SCH (10:11)
[2021-06-01] MEDS: DULoxetine 30 MG (CYMBALTA) CAP PO SCH (10:12)
[2021-06-01] MEDS: MUPIROCIN 2% OINT 22 GM (BACTROBAN) TUBE TOP SCH ×2 (10:12→21:00)
[2021-06-01] MEDS: GABAPENTIN 300 MG (NEURONTIN) CAP PO SCH ×3 (10:31→20:57)
[2021-06-01] MEDS: hydrOXYzine (VISTARIL/ATARAX) 25 MG capsule/tablet PO PRN (10:48)
[2021-06-01] MEDS: LINEZOLID IVPB 300 ML IV SCH ×2 (11:07→20:55)
[2021-06-01] MEDS: morphine INJ 4 MG/ML 1 ML (VIAL/SYRINGE) IV PRN ×4 (11:51→20:55)
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
[2021-06-01] MEDS ORDERED: VITAMIN D2 1.25 MG (50,000 UNITS) CAP PO SCH (13:15)
[2021-06-01] MEDS: ZINC SULFATE 220 MG CAPSULE PO SCH (13:25)
[2021-06-01] MEDS: COLLAGENASE 30 GM (SANTYL) TUBE TP SCH ×2 (13:26→21:00)
[2021-06-01] MEDS: HYPOCHLOROUS ACID/NaCl (VASHE) 250 ML IR PRN ×2 (13:26→21:00)
[2021-06-01] MEDS: POVIDONE (BETADINE) 10% SOLN 240 ML BTL TOP SCH (13:26)
[2021-06-01] MEDS: MICONAZOLE 2% POWDER (DESENEX AF) 90 GM TOP SCH ×2 (13:26→21:00)
[2021-06-01] MEDS: cloZAPine 25 MG (CLOZARIL) TAB PO SCH (20:55)
[2021-06-01] MEDS: ENOXAPARIN 40 MG/0.4 ML (LOVENOX) SYR SC SCH (20:56)
[2021-06-02] MEDS: MEROPENEM 1,000 MG in NS (IVPB) 100 ML IV SCH (01:42)
[2021-06-02 04:14] LABS: BASOPHILS # (AUTO) 0.1 10^3/uL (0.0-0.1); BASOPHILS % (AUTO) 0 % (0-10); EOSINOPHILS # (AUTO) 0.3 10^3/uL (0.0-0.3); EOSINOPHILS % (AUTO) 3 % (0-10); HEMATOCRIT 28 % (40-54); HEMOGLOBIN 8.1 g/dL (13.3-17.7); LYMPHOCYTES # (AUTO) 1.8 10^3/uL (1.0-4.0); LYMPHOCYTES % (AUTO) 15 % (12-44); MEAN CORPUSCULAR HEMOGLOBIN 23 pg (25-34); MEAN CORPUSCULAR HGB CONC 29 g/dL (32-36); MEAN CORPUSCULAR VOLUME 80 fL (80-99); MEAN PLATELET VOLUME 8.3 fL (9.0-12.2); MONOCYTES # (AUTO) 0.9 10^3/uL (0.0-1.0); MONOCYTES % (AUTO) 8 % (0-12); NEUTROPHILS # (AUTO) 8.6 10^3/uL (1.8-7.8); NEUTROPHILS % (AUTO) 72 % (42-75); PLATELET COUNT 372 10^3/uL (130-400); WHITE BLOOD COUNT 11.9 10^3/uL (4.3-11.0)
[2021-06-02 04:32] LABS: ALBUMIN 2.5 GM/DL (3.2-4.5); POTASSIUM 3.8 MMOL/L (3.6-5.0)
[2021-06-02 04:35] LABS: TOTAL PROTEIN 7.2 GM/DL (6.4-8.2)
[2021-06-02 04:37] LABS: BILIRUBIN,TOTAL 0.3 MG/DL (0.1-1.0)
[2021-06-02 04:38] LABS: CREATININE SERUM 0.46 MG/DL (0.60-1.30); PHOSPHORUS 3.8 MG/DL (2.3-4.7)
[2021-06-02 04:41] LABS: MAGNESIUM 1.7 MG/DL (1.6-2.4)
[2021-06-02] MEDS: KCL 20 MEQ TAB (K-DUR) PO SCH (04:48)
[2021-06-02] MEDS: POTASSIUM CL 10MEQ/50ML IVPB 50 ML IV SCH (04:48)
[2021-06-02] MEDS: MAGNESIUM 1 GM/100 ML IVPB 100 ML IV SCH ×3 (04:56→05:50)
[2021-06-02] MEDS: meTOprolol TARTRATE 25 MG (LOPRESSOR) TABLET PO SCH ×2 (04:58→15:54)
[2021-06-02] MEDS: risperiDONE 1 MG (RisperDAL) TAB PO SCH ×2 (04:58→15:53)
[2021-06-02] MEDS: morphine INJ 4 MG/ML 1 ML (VIAL/SYRINGE) IV PRN ×7 (05:08→22:27)
[2021-06-02] MEDS: HYPOCHLOROUS ACID/NaCl (VASHE) 250 ML IR PRN (05:08)
--- NOTE | 2021-06-02 08:22 | Progress Note - Surgery ---
[facility] 06[facility] 0822: Subjective Date Seen by a Provider: Jun 02, 2021 Time Seen by a Provider: 08:18 Subjective/Events-last exam Suprapubic catheter continues to leak, patient remains afebrile Patient sleeping and resting well WBC at 11.9, cultures resulted sensitivities for decubitus ulcers Objective Exam Vital Signs Date Time Temp Pulse Resp B/P (MAP) Pulse Ox O2 Delivery O2 Flow Rate FiO2 06/02/21 07:47 36.5 105 18 106/55 95 Nasal Cannula 3.00 06/02/21 03:39 36.3 112 24 97/52 97 Nasal Cannula 3.00 06/02/21 00:00 36.8 112 22 104/64 97 Nasal Cannula 3.00 06/01/21 20:55 Nasal Cannula 3.00 06/01/21 20:00 36.5 118 20 112/65 96 Nasal Cannula 3.00 06/01/21 16:00 36.6 125 18 108/67 97 Nasal Cannula 3.00 06/01/21 11:23 36.3 125 20 108/67 93 Nasal Cannula 3.00 06/01/21 09:20 96 Nasal Cannula 3.00 I & O 06/02/21 06:59 Intake Total 3157 ml Output Total 1320 ml Balance 1837 ml Capillary Refill : Less Than 3 Seconds General Appearance: No Apparent Distress, Other (sleeping) HEENT: Other (unable to perform HEENT exam ) Neck: Non Tender, Supple Respiratory: Chest Non Tender, No Accessory Muscle Use, No Respiratory Distress, Rhonci (bilaterally anterior posts ) Cardiovascular: No Murmur, Tachycardia Peripheral Pulses: 2+ Radial Pulses (R), 2+ Radial Pulses (L) Gastrointestinal: non tender, soft, other (Colostomy in LLQ, suprapubic catheter with purewick taped to the suprapubic region) Extremity: No Calf Tenderness Neurologic/Psychiatric: Other (sleeping ) Skin: Warm/Dry, Other (Decubitus ulcers. Right decubitus ulcer contains eschar. Signs of chemical debridement and improvement of wound status. ) Lymphatic: No Adenopathy (cervical or axillary) Results Lab Laboratory Tests 06/01/21 10:34: Glucometer 121H 06/01/21 13:54: Lab Scanned Report Transfusion Reaction Form 06/01/21 16:10: Glucometer 88 06/01/21 20:54: Glucometer 142H 06/02/21 03:56: White Blood Count 11.9H, Red Blood Count 3.46L, Hemoglobin 8.1L, Hematocrit 28L, Mean Corpuscular Volume 80, Mean Corpuscular Hemoglobin 23L, Mean Corpuscular Hemoglobin Concent 29L, Red Cell Distribution Width 21.7H, Platelet Count 372, Mean Platelet Volume 8.3L, Immature Granulocyte % (Auto) 2, Neutrophils (%) (Auto) 72, Lymphocytes (%) (Auto) 15, Monocytes (%) (Auto) 8, Eosinophils (%) (Auto) 3, Basophils (%) (Auto) 0, Neutrophils # (Auto) 8.6H, Lymphocytes # ( Auto) 1.8, Monocytes # (Auto) 0.9, Eosinophils # (Auto) 0.3, Basophils # (Auto) 0.1, Immature Granulocyte # (Auto) 0.2H, Sodium Level 136, Potassium Level 3.8, Chloride Level 96L, Carbon Dioxide Level 31, Anion Gap 9, Blood Urea Nitrogen 9, Creatinine 0.46L, Estimat Glomerular Filtration Rate 204, BUN/Creatinine Ratio 2 0, Glucose Level 117H, Calcium Level 9.0, Corrected Calcium 10.2H, Phosphorus Level 3.8, Magnesium Level 1.7, Total Bilirubin 0.3, Aspartate Amino Transf (AST/SGOT) 18, Alanine Aminotransferase (ALT/SGPT) 11, Alkaline Phosphatase 87, Total Protein 7.2, Albumin 2.5L Microbiology 05/27/21 Catheter Tip Culture - Final, Complete No growth 05/25/21 Urine Culture - Final, Complete YEAST Enterococcus faecium 05/24/21 Gram Stain - Final, Complete 05/24/21 Wound Culture - Final, Complete Mixed Bacterial Hali Pseudomonas aeruginosa Pseudomonas aeruginosa#2 Staphylococcus aureus Probable Enterococcus Species Assessment/Plan Assessment/Plan Assessment/Plan Decubitus ulcers Paraplegia Diabetes mellitus Depression, anxiety Leaking suprapubic catheter Santyl to be applied to any tissue with eschar for debridement. If this does not improve will need to have surgical debridement, on anticoagulation will hold if going to or. Continue wound care. Continue medical management Nutrient supplementation per shipping clerk packing recommendations. Balloon down catheter to 40cc MICHAEL BAIRD DO 06/02/21 1141: Subjective Subjective/Events-last exam Patient still with suprapubic is leaking. Patient no new complaints. Denies any pain. Denies nausea vomiting fever sweats chills shortness of breath or chest pain. Objective Exam General Appearance: No Apparent Distress, WD/WN HEENT: PERRL/EOMI, Normal ENT Inspection Neck: Non Tender, Supple Respiratory: Chest Non Tender, No Accessory Muscle Use, No Respiratory Distress Cardiovascular: No JVD, Tachycardia Gastrointestinal: non tender, soft, other (Colostomy in LLQ, suprapubic catheter with purewick taped to the suprapubic region) Extremity: No Calf Tenderness Neurologic/Psychiatric: Alert, Oriented x3 Skin: Normal Color, Warm/Dry, Other (Decubitus ulcers. Right decubitus ulcer contains eschar. Signs of chemical debridement and improvement of wound status. ) Lymphatic: No Adenopathy (cervical or axillary) Assessment/Plan Assessment/Plan Assessment/Plan Decubitus ulcers Paraplegia Diabetes mellitus Depression, anxiety Leaking suprapubic catheter Santyl to be applied to any tissue with eschar for debridement. If this does not improve will need to have surgical debridement, on anticoagulation will hold if going to or. Continue wound care. Continue medical management Nutrient supplementation per shipping clerk packing recommendations. Suprapubic Balloon down catheter to 40cc Supervisory-Addendum Brief Verification & Attestation Participated in pt care: history, MDM, physical Personally performed: exam, history, MDM, supervision of care Care discussed with: Medical Student Procedures: n/a Results interpretation: Verified all documentation Verification and Attestation of Medical Student E/M Service A medical student performed and documented this service in my presence. I rev iewed and verified all information documented by the medical student and made modifications to such information, when appropriate. I personally performed the physical exam and medical decision making. Michael Baird, Jun 02, 2021,11:40 [facility] Jun 02, 2021 08:22 MICHAEL BAIRD DO Jun 02, 2021 11:41
[2021-06-02] MEDS: NICOTINE PATCH REMOVAL TP SCH (08:46)
[2021-06-02] MEDS: MICONAZOLE 2% POWDER (DESENEX AF) 90 GM TOP SCH ×2 (08:47→22:50)
[2021-06-02] MEDS: POVIDONE (BETADINE) 10% SOLN 240 ML BTL TOP SCH (08:47)
[2021-06-02] MEDS: COLLAGENASE 30 GM (SANTYL) TUBE TP SCH ×2 (08:47→22:50)
[2021-06-02] MEDS: MUPIROCIN 2% OINT 22 GM (BACTROBAN) TUBE TOP SCH ×2 (08:47→22:49)
[2021-06-02] MEDS: BISACODYL 5 MG (DULCOLAX) TABLET PO SCH ×2 (08:48→22:28)
[2021-06-02] MEDS: SENNA W/DOCUSATE (SENOKOT S) TABLET PO SCH ×2 (08:48→22:28)
[2021-06-02] MEDS: DOCUSATE SODIUM 100 MG (COLACE) CAP PO SCH ×2 (08:48→22:28)
[2021-06-02] MEDS: VITAMIN D3 25 MCG (1,000 UNITS) TABLET PO SCH (08:49)
[2021-06-02] MEDS: FERROUS SULF 325 MG (IRON) TAB PO SCH (08:49)
[2021-06-02] MEDS: GABAPENTIN 300 MG (NEURONTIN) CAP PO SCH ×3 (08:49→22:30)
[2021-06-02] MEDS: BACLOFEN 10 MG (LIORESAL) TAB PO SCH ×3 (08:49→22:30)
[2021-06-02] MEDS: PANTOPRAZOLE 40 MG (PROTONIX) TAB PO SCH (08:49)
[2021-06-02] MEDS: LINEZOLID (ZYVOX) 600 MG TAB PO SCH ×2 (08:49→22:29)
[2021-06-02] MEDS: TOLTERODINE LA 2 MG (DETROL LA) CAP PO SCH ×2 (08:49→22:28)
[2021-06-02] MEDS: DULoxetine 30 MG (CYMBALTA) CAP PO SCH (08:49)
[2021-06-02] MEDS: MULTIVIT W/MINERALS TAB (THERAGRAN M) PO SCH (08:49)
[2021-06-02] MEDS: NICOTINE 21 MG (NICODERM) PATCH TD SCH (08:50)
[2021-06-02] MEDS: OXYBUTYNIN (DITROPAN) 5 MG TAB PO SCH (08:50)
[2021-06-02] MEDS: polyethylene glycoL POWDER 17 GM (MIRALAX) PACK PO SCH ×2 (08:50→22:27)
[2021-06-02] MEDS: ASCORBIC ACID (VIT C) 500 MG TABLET PO SCH ×2 (08:50→22:28)
[2021-06-02] MEDS: ACETIC ACID 0.25% IR SCH ×2 (08:51→22:31)
[2021-06-02] MEDS: cloZAPine 100 MG (CLOZARIL) TAB PO SCH (09:13)
[2021-06-02] MEDS ORDERED: LNZ600T PO (12:01)
[2021-06-02] MEDS ORDERED: LEVO750T39 PO (12:01)
--- NOTE | 2021-06-02 12:11 | Discharge Summary ---
Discharge Summary Reconcile Patient Problems Problems Reviewed?: Yes Hospital Course Hospital Course Date of Admission: May 24, 2021 at 17:33 Admission Diagnosis: Septic shock due to infected decubitus ulcer with polymicrobial infection Family Physician/Provider: No,Local Physician Date of Discharge: 06/02/21 Discharge Diagnosis: Infected decubitus ulcer with polymicrobial infection Hospital Course: Viral Padron is a 40 year old male with PMH paraplegia, suprapubic catheter, who was admitted with septic shock due to infected decubitus ulcer with polymicrobial bacterial infection. Surgery was consulted and assisted with his care. He did not require any surgical debridement. Wound care also assisted with his care. He will continue wound care at his facility and follow up in his wound care clinic in [place]. He will complete a course of antibiotics for polymicrobial infection. He also had a VRE UTI. 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 Urology was consulted and assisted with his care. He should follow up with his urologist. He was discharged back to his [place] [facility] in stable condition. Labs and Pending Lab Test: Laboratory Tests 06/01/21 13:54: Lab Scanned Report Transfusion Reaction Form 06/01/21 16:10: Glucometer 88 06/01/21 20:54: Glucometer 142H 06/02/21 03:56: White Blood Count 11.9H, Red Blood Count 3.46L, Hemoglobin 8.1L, Hematocrit 28L, Mean Corpuscular Volume 80, Mean Corpuscular Hemoglobin 23L, Mean Corpuscular Hemoglobin Concent 29L, Red Cell Distribution Width 21.7H, Platelet Count 372, Mean Platelet Volume 8.3L, Immature Granulocyte % (Auto) 2, Neutrophils (%) (Auto) 72, Lymphocytes (%) (Auto) 15, Monocytes (%) (Auto) 8, Eosinophils (%) (Auto) 3, Basophils (%) (Auto) 0, Neutrophils # (Auto) 8.6H, Lymphocytes # (Auto) 1.8, Monocytes # (Auto) 0.9, Eosinophils # (Auto) 0.3, Basophils # (Auto) 0.1, Immature Granulocyte # (Auto) 0.2H, Sodium Level 136, Potassium Level 3.8, Chloride Level 96L, Carbon Dioxide Level 31, Anion Gap 9, Blood Urea Nitrogen 9, Creatinine 0.46L, Estimat Glomerular Filtration Rate 204, BUN/Creatinine Ratio 20, Glucose Level 117H, Calcium Level 9.0, Corrected Calcium 10.2H, Phosphorus Level 3.8, Magnesium Level 1.7, Total Bilirubin 0.3, Aspartate Amino Transf (AST/SGOT) 18, Alanine Aminotransferase (ALT/SGPT) 11, Alkaline Phosphatase 87, Total Protein 7.2, Albumin 2.5L 06/02/21 10:51: Glucometer 135H Microbiology 05/27/21 Catheter Tip Culture - Final, Complete No growth 05/25/21 Urine Culture - Final, Complete YEAST Enterococcus faecium 05/24/21 Gram Stain - Final, Complete 05/24/21 Wound Culture - Final, Complete Mixed Bacterial Hali Pseudomonas aeruginosa Pseudomonas aeruginosa#2 Staphylococcus aureus Probable Enterococcus Species Home Meds Active Linezolid 600 Mg Tablet 600 Mg PO BID 10 Days Levofloxacin 750 Mg Tablet 750 Mg PO DAILY@1100 10 Days Reported Cyanocobalamin Injection (Cyanocobalamin) 1,000 Mcg/Ml Inj 1,000 Mcg IM EVERY 21 DAYS Ceftriaxone (Ceftriaxone Sodium) 2 Gm Vial 2 Gm IM FRI FOR UTI/WOUND MAINTENANCE Nyamyc (Nystatin) 15 Gm Powder 1 Applic TOP BID APPLY TO GROIN/RECTAL AREA Acetic Acid 1,000 Ml Irrig.soln 60 Ml IR BID USE EVERY DAY AND DIRECTOR OF INSTITUTIONAL SALES FOR [employer]LLING [employer] Ointment (Menthol/Camphor) 4 Gm Oint...g. 1 Applic TP Q4H PRN Ondansetron HCl 4 Mg Tablet 4 Mg PO Q6H PRN Ventolin Hfa (Albuterol Sulfate) 18 Gm Hfa.aer.ad 2 Puff INH Q6H PRN Milk of Magnesia (Magnesium Hydroxide) 400 Mg/5 Ml Oral.susp 30 Ml PO BID PRN Hydroxyzine HCl 25 Mg Tablet 50 Mg PO Q4H PRN TAKES 2 (25MG) TABS Hydrocodone-Acetamin 10-325 mg (Hydrocodone/Acetaminophen) 1 Each Tablet 1 Ea PO Q6H PRN Lactulose 10 Gm/15 Ml Solution 30 Ml PO TID Ibuprofen 800 Mg Tablet 800 Mg PO TID Neurontin (Gabapentin) 300 Mg Capsule 300 Mg PO TID Baclofen 5 Mg Tablet 5 Mg PO TID Risperidone 3 Mg Tablet 3 Mg PO 0600,1600 Metoprolol Tartrate 25 Mg Tablet 25 Mg PO 0600,1600 HOLD FOR SBP<100 ,DBP<60, PULSE<60 Docusate Sodium 100 Mg Capsule 100 Mg PO BID Bisacodyl 5 Mg Tablet.dr 10 Mg PO BID TAKES 2 (5MG) TABS Vitamin C (Ascorbic Acid) 500 Mg Tablet 500 Mg PO BID Eliquis (Apixaban) 5 Mg Tablet 5 Mg PO BID Zinc 50 Mg Tablet 50 Mg PO MON,WE,FR Vitamin D3 (Cholecalciferol (Vitamin D3)) 1,250 Mcg Capsule 1,250 Mcg PO TUE Vitamin D3 (Cholecalciferol (Vitamin D3)) 25 Mcg Tablet 25 Mcg PO DAILY Trintellix (Vortioxetine Hydrobromide) 20 Mg Tablet 20 Mg PO DAILY Potassium Chloride 20 Meq Tab.er.prt 20 Meq PO DAILY Pantoprazole Sodium 40 Mg Tablet.dr 40 Mg PO DAILY Multivitamins with Minerals (Multivitamin with Minerals) 1 Each Tablet 1 Each PO DAILY Metformin HCl 500 Mg Tablet 500 Mg PO DAILY Furosemide 40 Mg Tablet 40 Mg PO DAILY HOLD FOR SBP<100 ,DBP<60, PULSE<60 Ferrous Sulfate 325 Mg Tablet 650 Mg PO DAILY TAKES 2 (325MG) TABS Duloxetine HCl 30 Mg Capsule.dr 30 Mg PO DAILY TAKES 60MG +30MG TO EQUAL 90MG Duloxetine HCl 60 Mg Capsule.dr 60 Mg PO DAILY TAKES 60MG +30MG TO EQUAL 90MG Oxybutynin Chloride ER (Oxybutynin Chloride) 10 Mg Tab.er.24 10 Mg PO DAILY Clozapine 25 Mg Tablet 25 Mg PO HS Clozapine 100 Mg Tablet 100 Mg PO DAILY Instructions to Patient/Family Assessment/Instructions Take medications as prescribed. Wound care as directed. Follow up with your PCP, urologist, and wound care. Return with intractable pain, vomiting, shortness of breath, or if you feel like you are getting worse. Follow Up Appt.: one week with PCP Skilled NF Admit to: Certification (SNF) I certify that SNF services are required to be given on an inpatient basis because of the above named patient's need for [facility] care on a continuing basis for the conditions(s) for which he/she was receiving inpatient hospital services prior to his/her transfer to the SNF. Custodial Facility Order: Nursing Services, Consumer Attorney-Evaluate & Treat, Physical Therapy-Evaluate & Treat, Wound Care-Eval/Treat Oxygen Delivery Method: Nasal Cannula Oxygen Flow Rate L/min (Range): PRN Discharge Diet: No Restrictions Daily Activity as Tolerated: Yes Resuscitation Status: Full Code Baldev Fleming Jun 02, 2021 12:02 Discharge Physical Exam General: Alert, Oriented X3, Cooperative, No Acute Distress HEENT: Atraumatic, Mucous Memb Moist/[place] Lungs: Clear to Auscultation, Normal Air Movement Heart: Regular Rate, Normal S1, Normal S2, No Murmurs Abdomen: Soft, No Tenderness, Other Extremities: No Edema, No Tenderness/Swelling Skin: Other (decubitus ulcer) Neuro: Normal Speech, Other (paraplegia) Psych/Mental Status: Mental Status NL, Mood NL BALDEV FLEMING MD Jun 02, 2021 12:08
[2021-06-02] MEDS: ENOXAPARIN 40 MG/0.4 ML (LOVENOX) SYR SC SCH (18:56)
[2021-06-02] MEDS: ALPRAZolam 0.25 MG (XANAX) TAB PO PRN (22:28)
[2021-06-02] MEDS: cloZAPine 25 MG (CLOZARIL) TAB PO SCH (22:48)
[2021-06-03] MEDS: morphine INJ 4 MG/ML 1 ML (VIAL/SYRINGE) IV PRN ×2 (02:18→11:12)
[2021-06-03] MEDS: POTASSIUM CL 10MEQ/50ML IVPB 50 ML IV SCH (06:47)
[2021-06-03] MEDS: MAGNESIUM 1 GM/100 ML IVPB 100 ML IV SCH ×2 (06:49→07:09)
[2021-06-03] MEDS: KCL 20 MEQ TAB (K-DUR) PO SCH (06:50)
[2021-06-03] MEDS: meTOprolol TARTRATE 25 MG (LOPRESSOR) TABLET PO SCH (07:13)
[2021-06-03] MEDS: risperiDONE 1 MG (RisperDAL) TAB PO SCH (07:38)
[2021-06-03 07:58] VITALS: BP 100/60
[2021-06-03 08:00] VITALS: BP 102/68
[2021-06-03] MEDS: TOLTERODINE LA 2 MG (DETROL LA) CAP PO SCH (11:36)
[2021-06-03] MEDS: FERROUS SULF 325 MG (IRON) TAB PO SCH (11:36)
[2021-06-03] MEDS: DULoxetine 30 MG (CYMBALTA) CAP PO SCH (11:36)
[2021-06-03] MEDS: GABAPENTIN 300 MG (NEURONTIN) CAP PO SCH (11:37)
[2021-06-03] MEDS: VITAMIN D3 25 MCG (1,000 UNITS) TABLET PO SCH (11:37)
[2021-06-03] MEDS: DOCUSATE SODIUM 100 MG (COLACE) CAP PO SCH (11:37)
[2021-06-03] MEDS: BACLOFEN 10 MG (LIORESAL) TAB PO SCH (11:37)
[2021-06-03] MEDS: ASCORBIC ACID (VIT C) 500 MG TABLET PO SCH (11:38)
[2021-06-03] MEDS: LINEZOLID (ZYVOX) 600 MG TAB PO SCH (11:38)
[2021-06-03] MEDS: OXYBUTYNIN (DITROPAN) 5 MG TAB PO SCH (11:38)
[2021-06-03] MEDS: MULTIVIT W/MINERALS TAB (THERAGRAN M) PO SCH (11:39)
[2021-06-03] MEDS: PANTOPRAZOLE 40 MG (PROTONIX) TAB PO SCH (11:39)
[2021-06-10] MEDS ORDERED: CYANOCOBALAMIN INJ 1000 MCG/ML IM SCH (09:00)
== END 2021-06-03 11:40 | DRG 871 ==
LOC: ICU 17:33 → 4TH 05-28 15:59
PROVIDERS: ADMIT Internal Medicine; ATTEND Internal Medicine
DX: A41.9 Sepsis, unspecified organism (principal); L89.154 Pressure ulcer of sacral region, stage 4; R65.21 Severe sepsis with septic shock; G82.20 Paraplegia, unspecified; M86.9 Osteomyelitis, unspecified; Z16.21 Resistance to vancomycin; N39.0 Urinary tract infection, site not specified; E87.6 Hypokalemia; R09.02 Hypoxemia; G47.33 Obstructive sleep apnea (adult) (pediatric); I11.0 Hypertensive heart disease with heart failure; Z86.73 Personal history of transient ischemic attack (TIA), and cerebral infarction without residual deficits; F41.9 Anxiety disorder, unspecified; F32.A Depression, unspecified; F17.210 Nicotine dependence, cigarettes, uncomplicated; Z88.0 Allergy status to penicillin; Z88.1 Allergy status to other antibiotic agents; Z91.040 Latex allergy status; D64.9 Anemia, unspecified; E11.69 Type 2 diabetes mellitus with other specified complication; L89.622 Pressure ulcer of left heel, stage 2; L89.612 Pressure ulcer of right heel, stage 2; L89.522 Pressure ulcer of left ankle, stage 2; L89.512 Pressure ulcer of right ankle, stage 2; I50.9 Heart failure, unspecified; Q54.9 Hypospadias, unspecified; R32 Unspecified urinary incontinence; E66.9 Obesity, unspecified; N48.89 Other specified disorders of penis; B96.5 Pseudomonas (aeruginosa) (mallei) (pseudomallei) as the cause of diseases classified elsewhere; B95.61 Methicillin susceptible Staphylococcus aureus infection as the cause of diseases classified elsewhere
CPT/HCPCS: 36415; 36569; 71045; 76937; 80048; 80053; 80076; 81000; 82533; 82805; 82947; 83605; 83735; 84100; 84132; 84134; 85007; 85025; 85027; 85610; 86850; 86900; 86901; 86920; 87040; 87070; 87077; 87088; 87186; 87205; 93005; 94760